=== PATIENT | female | born 1935 | race Caucasian/White ===

== ENCOUNTER 2018-03-28 01:34 | Outpatient (CLI) | payer MEDICARE, OTHER, SELFPAY ==
--- NOTE | 2018-03-28 08:35 | DI.CT_ITS ---
SYMPTOM/DIAGNOSIS: VERTIGO, ? CVA NONCONTRAST HEAD CT: A noncontrast cranial CT was performed. There is mild generalized cerebral atrophy consistent with the patient's age. Mild patchy decreased attenuation of periventricular white matter noted consistent with microvascular ischemic changes. No evidence of acute intracranial hemorrhage, mass effect or midline shift. CONCLUSION: No evidence of acute intracranial process.
== END 2018-03-28 01:54 ==
PROVIDERS: PCP General Practice; Visit Provider General Practice
DX: R42 Dizziness and giddiness (principal); G31.1 Senile degeneration of brain, not elsewhere classified
CPT/HCPCS: 70450

== ENCOUNTER 2018-05-18 12:51 | Emergency (ER) | payer MEDICARE, OTHER, SELFPAY ==
[2018-05-18] VITALS (14 sets, daily range): BP systolic 82–148; BP diastolic 57–96; PULSE 65–92; RESP 11–20; TEMP 36.7–36.8; O2SAT 95–99
--- NOTE | 2018-05-18 12:51 | W.ED.GENAD ---
Discharge Plan Disposition Patient Disposition: HOME Condition: Stable Discharge Details Chief Complaint: Dizzy/Sync Clinical Impression: Syncope Reason For Visit: OSCAR Primary Care Provider: Eduardo Resendiz ED Provider: Dani Campa Home Meds and New Rx's Prescriptions: Continue metoprolol succinate 25 MG tablet extended release 24 hr 25 mg PO HS RF: 0 Discharge Instructions Instructions: Syncope (ED) Additional Instructions: follow up with your primary care provider within a week if you have chest pain, difficulty breathing or severe headaches return to the emergency department Medical Decision Making 82 yo female with hx of afib comes in with syncope. She was at a [employer] store standing for quite some time per pt, felt lightheaded, sat down then lost consciousness and came to in about aminute. Denies any fevers, sob, chills, headache, nv/, chest pain or sob. Suspect orthostasis, ekg shows no acute ischemic findings, will eval for electrolyte abnormalities and monitor. No tachycardia or hypoxia or evidence of dvt so dubt PE pt remains stable, is in sinus rhythm and stable vitals. Will have her d/c'd with zio patch and have her f/u with Dr. Resendiz within a week and return precautions given Differential Diagnosis syncope, orthostasis, anemia Lab Data Lab results reviewed: Yes I reviewed the patient's lab results. ECG Data Attestation: I personally reviewed and interpreted this ECG (s) as follows: Prior ECG tracings: not available for review Interpretation: atrial fibrillatoin rate of 85, normal axis, no acute st t wave changes HPI General Mode of arrival: EMS. Date/Time Provider Initiated Documentation: 05/18/18 13:04. Limitations to Documentation: no limitations. Information obtained by: patient. History of Present Illness 82 year old F presents to the emergency department with the chief complaint of syncope, Patient started experiencing this hour(s) (1) and it has been now resolved. No relieving factors improve symptom(s), No exacerbating factors reported . Patient notes no other symptoms.. Patient did receive the following treatments prior to arrival, none Related Data Home Medications Medication Instructions Recorded Confirmed metoprolol succinate 25 mg PO HS 06/11/16 05/18/18 Allergies Allergy/AdvReac Type Severity Reaction Status Date / Time Penicillins Allergy Severe Anaphylaxsi Verified 05/18/18 13:05 s cephalexin monohydrate Allergy Intermediate Cardiac Verified 05/18/18 13:05 [From Keflex] Dysrythmia Cephalosporins Allergy Intermediate Skin Rash Verified 05/18/18 13:05 codeine Allergy Unknown Verified 05/18/18 13:05 morphine Allergy Unknown Verified 05/18/18 13:05 sulfite Allergy Unknown Verified 05/18/18 13:05 Sulfa (Sulfonamide Allergy unknown Verified 05/18/18 13:05 Antibiotics) erythromycin base AdvReac Mild Nausea Verified 05/18/18 13:05 Review of Systems Review of Systems All systems reviewed & are unremarkable except as noted in HPI and below Constitutional Denies chills, Denies fever(s) and Denies weakness ENT Denies change in voice Cardiovascular Denies chest pain and Denies dyspnea Respiratory Denies dyspnea Gastrointestinal Denies abdominal pain, Denies nausea and Denies vomiting Genitourinary Denies dysuria Musculoskeletal Denies joint swelling Integumentary/Breasts Denies rash Neurologic Denies weakness Psychiatric Denies depression Endocrine Denies cold intolerance and Denies heat intolerance Allergic/Immunologic Denies urticaria PFSH Social History Smoking/Tobacco Use Status: Former Tobacco Use Exam Const General: no acute distress Orientation: alert HENMT Head: normal to inspection Ears: external ears normal General nose exam: external nose normal Mouth: moist mucous membranes Eyes General: appearance normal, both eyes and all related structures Neck Neck: normal visual inspection Resp Effort & Inspection: normal respiratory effort and able to speak in complete sentences Cardio Rate: regular rate Skin General skin exam: no rashes or lesions noted Neuro General: alert and oriented x3 Extrem General: normal to inspection Psych Mental Status: mental status grossly normal
[2018-05-18 13:09] LABS: Abs Immature Grans 0.03 k/cumm (0.0-0.09); Absolute Basophil Count 0.05 k/cumm (0.0-0.2); Absolute Eosinophil Count 0.08 k/cumm (0.0-0.7); Absolute Lymphocyte Count 2.31 k/cumm (1.2-3.4); Absolute Monocyte Count 0.45 k/cumm (0.11-0.7); Absolute Neutrophil Count 5.41 k/cumm (1.2-6.7); Basophils % 0.6; HCT 37.1 % (36.0-46.0); HGB 12.5 g/dL (12.0-15.5); Immature Grans % 0.4; Lymphocytes % 27.7; Mean Corp. HGB Concentration 33.7 g/dL (32.0-36.0); Mean Corpuscular Hemoglobin 30.3 pg (27.0-33.0); Mean Corpuscular Volume 89.8 fL (80-95); Mean Platelet Volume 9.5 fL (8.0-11.0); Monocytes % 5.4; Neutrophils % 64.9; Platelet Count 356 x1000/uL (130-400); RBC 4.13 m/cumm (4.00-5.20); RBC Distribution Width 13.2 % (11.7-14.6); White Blood Cell Count 8.33 k/cumm (4.4-10.8)
[2018-05-18 13:38] LABS: ALT 17 U/L (12-78); AST 20 U/L (15-37); Alkaline Phosphatase 77 U/L (46-116); Anion Gap 10.5 mmol/L (3-11); BUN 19 mg/dL (7-18); Bilirubin, Total 0.3 mg/dL (0.2-1.0); CO2 26.5 mmol/L (21.0-32.0); CREATININE 1.16 mg/dL (0.55-1.02); Calcium 8.3 mg/dL (8.5-10.1); Chloride 103 mmol/L (98-107); Estimated GFR 44.95 (mL/min/1.73m2); Glucose 189 mg/dL (70-100); NT-proBNP 506 pg/mL; Potassium 3.4 mmol/L (3.5-5.1); Sodium 140 mmol/L (136-145); Total Protein 6.7 g/dL (6.4-8.2)
[2018-05-18 13:40] LABS: Troponin I < 0.02 ng/mL (0.00-0.06)
[2018-05-18 13:41] LABS: PTT Activated 19.3 sec (21.0-31.4); Prothrombin Time 9.9 sec (9.3-10.8)
--- NOTE | 2018-06-11 16:03 | ZIOP_ITS ---
DATE OF DICTATION: June 11, 2018 STUDY INDICATION: Syncope. REQUESTING PROVIDER: Eduardo Resendiz M.D. FINDINGS: The patient was monitored for 13 days and 17 hours. The predominant underlying rhythm was sinus rhythm. Average heart rate in sinus rhythm 73 bpm, range 46-151 bpm. There was occasional supraventricular ectopy, 3.5% PAC's. There were 206 episodes of atrial tachycar raza, average heart rate 154 bpm, range 72-292 bpm. The longest episode lasted [address] rage heart rate of 140 bpm. There was rare ventricular ectopy. There was no ventricular tachycardia. There was nocturnal sinus bradycardia. There were no pauses greater than 3 seconds. There was no hi gh-degree heart block. There were 11 patient events. Nine events were associated with PAC's. One event was associated with SVT. One episode was not associated with arrhythmias. FINAL INTERPRETATION: Paroxysmal supraventricular tachycardia, rarely symptomatic.
== END 2018-05-18 14:57 | disposition home or self-care (01) ==
PROVIDERS: Emergency Provider Emergency Medicine; PCP General Practice
DX: R42 Dizziness and giddiness (principal); R55 Syncope and collapse; I48.91 Unspecified atrial fibrillation; I10 Essential (primary) hypertension
CPT/HCPCS: 36415; 80053; 87040; 93005; 93225; 99284; 83880; 84484; 85025; 85610; 85730; 93010; 99285

== ENCOUNTER 2018-06-11 15:42 | Outpatient (CLI) | payer MEDICARE, OTHER, SELFPAY | END 2018-06-11 16:02 | PROVIDERS: PCP Family Medicine; Referring Provider Emergency Medicine; Visit Provider Student in an Organized Health Care Education/Training Program | DX: R55 Syncope and collapse (principal) | CPT/HCPCS: 0298T ==

== ENCOUNTER 2018-07-19 00:32 | Outpatient (CLI) | payer MEDICARE, OTHER, SELFPAY ==
--- NOTE | 2018-07-19 10:12 | DI.US_ITS ---
SYMPTOMS/DIAGNOSIS: PERSISTENT PRESYNCOPAL SYMPTOMS, [id number] AND COLLAPSE CAROTID ULTRASOUND: There is a minimal amount of plaque in the right common carotid bulb. No significant plaque is seen on the left side. The velocity measurements obtained are within the normal range. The vertebral arteries show antegrade flow. IMPRESSION: No significant internal carotid artery stenosis.
--- NOTE | 2018-07-19 10:30 | MERGE_ITS ---
*[facility]* *[facility]* [address] [place] [address] Date of study: 07/19/2018 Transthoracic Echocardiography M-mode, complete 2D, complete spectral Doppler, and color Doppler *STUDY CONCLUSIONS* Summary: 1. Left ventricle: The cavity size was normal. Wall thickness was normal. Systolic function was normal. The estimated ejection fraction was 55-60%. Wall motion was normal; there were no regional wall motion abnormalities. 2. Right ventricle: The cavity size was normal. Systolic function was normal. 3. Aortic valve: There was mild regurgitation. 4. Mitral valve: There was mild to moderate regurgitation. 5. Inferior vena cava: The vessel was patent and normal in size. The respirophasic diameter changes were in the normal range (greater than or equal to 50%), consistent with normal central venous pressure. *PATIENT PRESENTATION* Height: 149.9cm ((59in) ) S/D Pressure: 139 / 77 Weight: 59kg ((129.7lb) ) BSA: 1.58m^2 Test start time: 10:50 AM. Test stop time: 11:50 AM. PERFORMING [facility] MOLD PULLER RT Masha Montez)(CT), [facility] ORDERING Ted Castillo REFERRING Ted Castillo *PROCEDURE DATA* Procedure information: The patient was identified by two identifiers. This study was interpreted by [facility]. Pertinent images and digital data are archived for permanent storage and are available for subsequent review. No prior study was available for comparison. Study status: Routine. Transthoracic echocardiography. M-mode, complete 2D, complete spectral Doppler, and color Doppler. A Transthoracic Echocardiogram was performed. Scanning was performed from the parasternal, apical, subcostal, and suprasternal notch acoustic windows. Images were obtained using an [id number] cardiac ultrasound machine. Image quality was adequate. Study completion: The patient tolerated the procedure well. There were no complications. History: PMH: Syncope and collapse. Pre syncope. *CARDIAC ANATOMY* Left ventricle: The cavity size was normal. Wall thickness was normal. Systolic function was normal. The estimated ejection fraction was 55-60%. Wall motion was normal; there were no regional wall motion abnormalities. Aortic valve: Trileaflet; normal thickness leaflets. Mobility was not restricted. Doppler: Transvalvular velocity was within the normal range. There was no stenosis. There was mild regurgitation. VTI ratio of LVOT to aortic valve: 0.64. Valve area (VTI): 1.6cm^2. Indexed valve area (VTI): 1cm^2/m^2. Peak velocity ratio of LVOT to aortic valve: 0.59. Valve area (Vmax): 1.5cm^2. Indexed valve area (Vmax): 0.9cm^2/m^2. Mean velocity ratio of LVOT to aortic valve: 0.61. Valve area (Vmean): 1.5cm^2. Indexed valve area (Vmean): 1cm^2/m^2. Mean gradient (S): 5.6mm Hg. Peak gradient (S): 10.4mm Hg. Aorta: Aortic root: The aortic root was normal in size. Ascending aorta: The ascending aorta was normal in size. Mitral valve: Mildly thickened leaflets. Mobility was not restricted. Doppler: Transvalvular velocity was within the normal range. There was no evidence for stenosis. There was mild to moderate regurgitation. Valve area by pressure half-time: 3.6cm^2. Indexed valve area by pressure half-time: 2.3cm^2/m^2. Peak gradient (D): 2.9mm Hg. Left atrium: The atrium was normal in size. Right ventricle: The cavity size was normal. Systolic function was normal. Pulmonic valve: Poorly visualized. Doppler: Transvalvular velocity was within the normal range. There was no evidence for stenosis. There was trivial regurgitation. Tricuspid valve: Structurally normal valve. Doppler: Transvalvular velocity was within the normal range. There was no evidence for stenosis. There was mild regurgitation. Pulmonary artery: Poorly visualized. Pulmonary systolic pressure was within the normal range, in the range of 30mm Hg to 35mm Hg. Right atrium: The atrium was normal in size. Pericardium: There was no pericardial effusion. Systemic veins: Inferior vena cava: Well visualized. The vessel was patent and normal in size. The respirophasic diameter changes were in the normal range (greater than or equal to 50%), consistent with normal central venous pressure. Measurements Left ventricle Value Reference LV ID, ED, PLAX 4.2 cm 3.5 - 6.0 LV ID, ES, PLAX 3.0 cm 2.1 - 4.0 LV PW thickness, ED, PLAX 0.8 cm LV end-diastolic volume, 1-p A2C 52 ml LV ejection fraction, 1-p A2C 55 % LV end-diastolic volume, 1-p A4C 41 ml LV ejection fraction, 1-p A4C 62 % LV e', lateral 0.106 m/sec LV E/e', lateral 8 LV e', medial 0.061 m/sec LV E/e', medial 14 LV e', average 0.084 m/sec LV E/e', average 10 Ventricular septum Value Reference IVS thickness, ED, PLAX 0.8 cm LVOT Value Reference LVOT ID, A-P 1.8 cm LVOT area 2.5 cm^2 LVOT peak velocity, S 0.95 m/sec LVOT mean velocity, S 0.7 m/sec LVOT VTI, S 23.1 cm LVOT peak gradient, S 3.6 mm Hg LVOT mean gradient, S 2.1 mm Hg Stroke volume (SV), LVOT DP 57 ml Stroke index (SV/bsa), LVOT DP 36 ml/m^2 Aortic valve Value Reference Aortic valve peak velocity, S 1.6 m/sec Aortic valve mean velocity, S 1.13 m/sec Aortic valve VTI, S 36.0 cm Aortic mean gradient, S 5.6 mm Hg Aortic peak gradient, S 10.4 mm Hg VTI ratio, LVOT/AV 0.64 Aortic valve area, VTI 1.6 cm^2 Velocity ratio, peak, LVOT/AV 0.59 Aortic valve area, peak velocity 1.5 cm^2 Velocity ratio, mean, LVOT/AV 0.61 Aortic valve area, mean velocity 1.5 cm^2 Aortic valve area/bsa, mean velocity 1 cm^2/m^2 Aortic regurg deceleration 261 cm/s^2 Aortic regurg pressure half-time 492 ms Aorta Value Reference Aortic root ID, ED 2.6 cm Ascending aorta ID, A-P, S 2.5 cm Left atrium Value Reference LA ID, A-P, ES 3.1 cm LA ID/bsa, A-P 1.9 cm/m^2 <=2.2 LA area, ES, A4C 16.4 cm^2 8.8 - 23.4 LA volume/bsa, ES, 1-p A4C 30 ml/m^2 LA/aortic root ratio 1.17 Mitral valve Value Reference Mitral E-wave peak velocity 0.85 m/sec Mitral A-wave peak velocity 0.6 m/sec Mitral deceleration time 211 ms 150 - 230 Mitral pressure half-time 61 ms Mitral peak gradient, D 2.9 mm Hg Mitral E/A ratio, peak 1.4 Mitral valve area, PHT, DP 3.6 cm^2 Mitral peak LV-LA gradient, S 100.4 mm Hg Mitral maximal regurg velocity, PISA 5.01 m/sec Mitral regurg VTI, PISA 167.9 cm Pulmonary veins Value Reference Pulmonary vein peak velocity, S 0.48 m/sec Pulmonary vein peak velocity, D 0.55 m/sec Pulmonary vein velocity ratio, peak, 0.87 S/D Pulmonary vein A-wave reversal peak 0.4 m/sec velocity Pulmonary vein A-wave reversal 152 ms duration Tricuspid valve Value Reference Tricuspid regurg peak velocity 2.8 m/sec Tricuspid peak RV-RA gradient 32.2 mm Hg Right atrium Value Reference RA area, ES, A4C 11.3 cm^2 8.3 - 19.5 Legend: (L) and (H) harman values outside specified reference range. I have personally reviewed the images and have reviewed and edited the reported findings. Electronically signed by Mina Londono 07/19/2018 12:27
== END 2018-07-19 00:52 ==
PROVIDERS: PCP Family Medicine; Visit Provider Family Medicine
DX: R55 Syncope and collapse (principal); I35.1 Nonrheumatic aortic (valve) insufficiency; I34.0 Nonrheumatic mitral (valve) insufficiency
CPT/HCPCS: 93306; 93880

== ENCOUNTER 2018-07-31 08:27 | Outpatient (CLI) | payer MEDICARE, OTHER, SELFPAY | END 2018-07-31 08:47 | PROVIDERS: PCP Family Medicine; Visit Provider Family Medicine | DX: I47.1 Supraventricular tachycardia (principal) | CPT/HCPCS: 36415; 84443 ==

== ENCOUNTER 2018-08-03 09:40 | Outpatient (REF) | payer MEDICARE, OTHER, SELFPAY ==
[2018-08-07 17:11] LABS: Metanephrines, U 78 mcg/24 h; Normetanephrine, U 274 mcg/24 h; Total Metanephrines, U 352 mcg/24 h; Urine Volume 1550 mL
== END 2018-08-03 10:00 ==
LOC: LBN 09:40
PROVIDERS: PCP Family Medicine; Visit Provider Family Medicine
DX: I47.1 Supraventricular tachycardia (principal)
CPT/HCPCS: 81050; 83835

== ENCOUNTER → 2018-11-07 13:05 | Outpatient (BNVA) | payer MEDICARE, OTHER, SELFPAY | PROVIDERS: PCP Family Medicine; Visit Provider Student in an Organized Health Care Education/Training Program | DX: R55 Syncope and collapse (principal); I47.1 Supraventricular tachycardia; I10 Essential (primary) hypertension | CPT/HCPCS: 99204; 99215 ==

== ENCOUNTER 2018-11-16 04:15 | Emergency (ER) | payer MEDICARE, OTHER, SELFPAY ==
[2018-11-16 04:17] VITALS: BP 179/82; PULSE 107; RESP 16; TEMP 37.1; O2SAT 98
[2018-11-16 04:24] VITALS: RESP 16
--- NOTE | 2018-11-16 05:00 | W.ED.GENAD ---
Discharge Plan Disposition Patient Disposition: HOME Condition: Good Discharge Details Chief Complaint: Dizzy/Sync Clinical Impression: Vertigo Primary Care Provider: Ted Castillo ED Provider: Yony Jaramillo Home Meds and New Rx's Prescriptions: Continued acetaminophen [Tylenol] 325 mg tablet 325 mg PO QID PRNRF: 0 TUMS PO PRNRF: 0 probiotics PO TID RF: 0 thera tears eye drops OU RF: 0 esthela.stocking,knee,reg,smal misc .ROUTE .MEDSUPPLY Qty: 12 RF: 0 Discharge Instructions Additional Instructions: Your vital signs have normalized here. Your EKG is fine. You have previous history of vertigo with outpatient work-up. Your neurologic exam is normal. We will have you follow-up with your primary care for further management. Return to ED if he develops severe headache, pass out, persistent vertigo with inability to ambulate or vomiting. Referrals: Ted Castillo, [Primary Care Provider] - Medical Decision Making Patient presenting with episodes of vertigo which have resolved. Episodes were short-lived. She has history of same. According to medical records from her primary care's office, she has been dealing with dizziness for months if not years. When I asked what was different about catherine she could not give me a good explanation. She actually reports that her vertigo is usually spinning and not swirling. She had no associated neurologic symptoms. She was able to ambulate. She was a little concerned because of her blood pressure and heart rate but this could have simply been because of anxiety. She does have history of tachycardia and SVT. Her EKG is sinus rhythm with PACs. Monitor for the most part has been sinus rhythm below 100. She has had an echo and carotid ultrasound outpatient. At this point in time, given the short, episodic events with prior history of vertigo and no neurologic findings on exam I am going to refer her back to primary care. They had stopped her metoprolol thinking she was becoming symptomatic with bradycardia. She reports that she had been doing well off this until tonight. We will have her follow-up with primary care next week for further management. Medical Records Medical records reviewed: Yes I reviewed the patient's medical records. ECG Data Attestation: I personally reviewed and interpreted this ECG (s) as follows: Interpretation: Sinus rhythm at 82 with occasional PAC. Normal axis and intervals. No ST changes. HPI General Mode of arrival: EMS. Date/Time Provider Initiated Documentation: 11/16/18 04:39. Limitations to Documentation: no limitations. Information obtained by: patient and old records reviewed. HPI Narrative: Patient presents to ED by ambulance for evaluation of vertigo. Patient reports that she woke up this morning and has had a few episodes of vertigo which she describes as a swirling sensation. She has had maybe 3 of them. They do not last more than a few seconds. She had no associated headache, change in vision, numbness, weakness, chest pain, shortness of breath, vomiting. She reports that she has a history of vertigo. She took her blood pressure and heart rate which were both elevated which concerned her. She then called 911 and was brought in for evaluation. She currently is asymptomatic. Related Data Home Medications Medication Instructions Recorded Confirmed TUMS PO PRN 06/15/18 09/13/18 acetaminophen 325 mg tablet 325 mg PO QID PRN 06/15/18 11/16/18 compression stocking, knee high, #12 each 06/15/18 09/13/18 regular length, small probiotics PO TID 06/15/18 09/13/18 thera tears eye drops OU 06/15/18 09/13/18 Previous Rx's Medication Instructions Recorded compression stocking, knee high, #12 each 06/15/18 regular length, small Allergies Allergy/AdvReac Type Severity Reaction Status Date / Time Penicillins Allergy Severe Anaphylaxsi Verified 11/16/18 04:28 s cephalexin monohydrate Allergy Intermediate Cardiac Verified 11/16/18 04:28 [From Keflex] Dysrythmia Cephalosporins Allergy Intermediate Skin Rash Verified 11/16/18 04:28 codeine Allergy Unknown unknown Verified 11/16/18 04:28 morphine Allergy Unknown unknown Verified 11/16/18 04:28 Sulfa (Sulfonamide Allergy Unknown unknown Verified 11/16/18 04:28 Antibiotics) sulfite Allergy Unknown unknown Verified 11/16/18 04:28 erythromycin base AdvReac Mild Nausea Verified 11/16/18 04:28 metoprolol AdvReac sleepless, Verified 11/16/18 04:28 agitated General Stated Complaint: Dizzy/Sync HANS: 3 Review of Systems Review of Systems As documented in HPI otherwise negative as below. Const: no fever, chills, weakness Resp: no cough, SOB, pleuritic pain CV: no CP, diaphoresis, edema, syncope GI: no abdominal pain, nausea, vomiting, diarrhea Neuro: no headache, numbness, focal weakness, confusion; positive vertigo [facility] Medical History Diverticulitis (Chronic) CAYDEN (generalized anxiety disorder) (Chronic) Hyperlipidemia (Chronic) Hypertension (Chronic) Osteoporosis (Chronic) Kidney stones (Chronic) Diplopia (Acute) Palpitations (Acute) Syncope (Chronic) Surgical History S/P ZEINA-BSO (Acute) Hx of appendectomy (Chronic) Hx of hysterectomy (Chronic) Social History Smoking/Tobacco Use Status: Former Tobacco Use Alcohol Intake: never Drug use: Never Substance use type: does not use Housing: apartment What type of physical activity do you participate in: none Seatbelt use: always 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 Hypertensive and mildly tachycardic on arrival. Const: WDWN elderly female in NAD. HEENT: NC/AT. Normal facial exam. Eyes: Normal conjunctiva and sclera. EOMI without nystagmus. Neck: Supple. Trachea midline. Lungs: Normal respiratory effort. Lungs are clear. Cor: RRR without murmur/gallop. Good radial pulses. Occasional ectopic beat. Neuro: A+O x 3. CN II - XII in tact. Normal strength and sensation. Normal FTN. Normal speech. Ext: No C/C. LE edema chronic. Course Vital Signs Temperature 98.8 F 11/16/18 04:17 Pulse 107 H 11/16/18 04:17 Respiratory Rate 16 11/16/18 04:17 Blood Pressure 179/82 H 11/16/18 04:17 Pulse Oximetry 98 11/16/18 04:17 Temperature 98.8 F 11/16/18 04:17 Temperature Source Temporal Artery Scan 11/16/18 04:17 Pulse 107 H 11/16/18 04:17 Respiratory Rate 16 11/16/18 04:24 Respiratory Effort 11/16/18 04:24 Respiratory Depth Normal 11/16/18 04:24 Blood Pressure 179/82 H 11/16/18 04:17 Pulse Oximetry 98 11/16/18 04:17 Oxygen Delivery Method Room Air 11/16/18 04:17 Oxygen Flow Rate 0 11/16/18 04:17 Pain Level 0 11/16/18 04:17
--- NOTE | 2018-11-16 05:12 | ED.GENADUL_ITS ---
Discharge Plan Disposition Patient Disposition: HOME Condition: Good Discharge Details Chief Complaint: Dizzy/Sync Clinical Impression: Vertigo Primary Care Provider: Ted Castillo ED Provider: Yony Jaramillo Home Meds and New Rx's Prescriptions: Continued acetaminophen [Tylenol] 325 mg tablet 325 mg PO QID PRNRF: 0 TUMS PO PRNRF: 0 probiotics PO TID RF: 0 thera tears eye drops OU RF: 0 esthela.stocking,knee,reg,smal misc .ROUTE .MEDSUPPLY Qty: 12 RF: 0 Discharge Instructions Additional Instructions: Your vital signs have normalized here. Your EKG is fine. You have previous history of vertigo with outpatient work-up. Your neurologic exam is normal. We will have you follow-up with your primary care for further management. Return to ED if he develops severe headache, pass out, persistent vertigo with inability to ambulate or vomiting. Referrals: Ted Castillo, [Primary Care Provider] - Medical Decision Making Patient presenting with episodes of vertigo which have resolved. Episodes were short-lived. She has history of same. According to medical records from her primary care's office, she has been dealing with dizziness for months if not years. When I asked what was different about catherine she could not give me a good explanation. She actually reports that her vertigo is usually spinning and not swirling. She had no associated neurologic symptoms. She was able to ambulate. She was a little concerned because of her blood pressure and heart rate but this could have simply been because of anxiety. She does have history of tachycardia and SVT. Her EKG is sinus rhythm with PACs. Monitor for the most part has been sinus rhythm below 100. She has had an echo and carotid ultrasound outpatient. At this point in time, given the short, episodic events with prior history of vertigo and no neurologic findings on exam I am going to refer her back to primary care. They had stopped her metoprolol thinking she was becoming symptomatic with bradycardia. She reports that she had been doing well off this until tonight. We will have her follow-up with primary care next week for further management. Medical Records Medical records reviewed: Yes I reviewed the patient's medical records. ECG Data Attestation: I personally reviewed and interpreted this ECG (s) as follows: Interpretation: Sinus rhythm at 82 with occasional PAC. Normal axis and intervals. No ST changes. HPI General Mode of arrival: EMS . Date/Time Provider Initiated Documentation: 11/16/18 04:39 . Limitations to Documentation: no limitations . Information obtained by: patient and old records reviewed . HPI Narrative: Patient presents to ED by ambulance for evaluation of vertigo. Patient reports that she woke up this morning and has had a few episodes of vertigo which she describes as a swirling sensation. She has had maybe 3 of them. They do not last more than a few seconds. She had no associated headache, change in vision, numbness, weakness, chest pain, shortness of breath, vomiting. She reports that she has a history of vertigo. She took her blood pressure and heart rate which were both elevated which concerned her. She then called 911 and was brought in for evaluation. She currently is asymptomatic. Related Data Home Medications Medication Instructions Recorded Confirmed TUMS PO PRN 06/15/18 09/13/18 acetaminophen 325 mg tablet 325 mg PO QID PRN 06/15/18 11/16/18 compression stocking, knee high, #12 each 06/15/18 09/13/18 regular length, small probiotics PO TID 06/15/18 09/13/18 thera tears eye drops OU 06/15/18 09/13/18 Previous Rx's Medication Instructions Recorded compression stocking, knee high, #12 each 06/15/18 regular length, small Allergies Allergy/AdvReac Type Severity Reaction Status Date / Time Penicillins Allergy Severe Anaphylaxsi Verified 11/16/18 04:28 s cephalexin monohydrate Allergy Intermediate Cardiac Verified 11/16/18 04:28 [From Keflex] Dysrythmia Cephalosporins Allergy Intermediate Skin Rash Verified 11/16/18 04:28 codeine Allergy Unknown unknown Verified 11/16/18 04:28 morphine Allergy Unknown unknown Verified 11/16/18 04:28 Sulfa (Sulfonamide Allergy Unknown unknown Verified 11/16/18 04:28 Antibiotics) sulfite Allergy Unknown unknown Verified 11/16/18 04:28 erythromycin base AdvReac Mild Nausea Verified 11/16/18 04:28 metoprolol AdvReac sleepless, Verified 11/16/18 04:28 agitated General Stated Complaint: Dizzy/Sync HANS: 3 Review of Systems Review of Systems As documented in HPI otherwise negative as below. Const: no fever, chills, weakness Resp: no cough, SOB, pleuritic pain CV: no CP, diaphoresis, edema, syncope GI: no abdominal pain, nausea, vomiting, diarrhea Neuro: no headache, numbness, focal weakness, confusion; positive vertigo [facility] Medical History Diverticulitis (Chronic) CAYDEN (generalized anxiety disorder) (Chronic) Hyperlipidemia (Chronic) Hypertension (Chronic) Osteoporosis (Chronic) Kidney stones (Chronic) Diplopia (Acute) Palpitations (Acute) Syncope (Chronic) Surgical History S/P ZEINA-BSO (Acute) Hx of appendectomy (Chronic) Hx of hysterectomy (Chronic) Social History Smoking/Tobacco Use Status: Former Tobacco Use Alcohol Intake: never Drug use: Never Substance use type: does not use Housing: apartment What type of physical activity do you participate in: none Seatbelt use: always Drive intox or ride w/intox van driver: No Water heater temp set <120 deg: Yes Working smoke detector in home: Yes Fire extinguisher in home: Yes Carbon monox detector in home: Yes Do you feel safe in your relationship?: Yes Exam Narrative Exam Narrative: Vitals: Afebrile. Hypertensive and mildly tachycardic on arrival. Const: WDWN elderly female in NAD. HEENT: NC/AT. Normal facial exam. Eyes: Normal conjunctiva and sclera. EOMI without nystagmus. Neck: Supple. Trachea midline. Lungs: Normal respiratory effort. Lungs are clear. Cor: RRR without murmur/gallop. Good radial pulses. Occasional ectopic beat. Neuro: A+O x 3. CN II - XII in tact. Normal strength and sensation. Normal FTN. Normal speech. Ext: No C/C. LE edema chronic. Course Vital Signs Temperature 98.8 F 11/16/18 04:17 Pulse 107 H 11/16/18 04:17 Respiratory Rate 16 11/16/18 04:17 Blood Pressure 179/82 H 11/16/18 04:17 Pulse Oximetry 98 11/16/18 04:17 Temperature 98.8 F 11/16/18 04:17 Temperature Source Temporal Artery Scan 11/16/18 04:17 Pulse 107 H 11/16/18 04:17 Respiratory Rate 16 11/16/18 04:24 Respiratory Effort 11/16/18 04:24 Respiratory Depth Normal 11/16/18 04:24 Blood Pressure 179/82 H 11/16/18 04:17 Pulse Oximetry 98 11/16/18 04:17 Oxygen Delivery Method Room Air 11/16/18 04:17 Oxygen Flow Rate 0 11/16/18 04:17 Pain Level 0 11/16/18 04:17
[2018-11-16 05:36] VITALS: BP 143/64; PULSE 78; RESP 15; O2SAT 95
--- NOTE | 2018-11-16 07:59 | CMPROGNOTE_ITS ---
Care Management Progress Note 11/16-Dr. Jaramillo requested assistance with a PCP (Jonathan) f/u in one week for vertigo. Referral faxed to [facility] this am.
== END 2018-11-16 05:28 | disposition home or self-care (01) ==
LOC: ER 05:17
PROVIDERS: Emergency Provider Emergency Medicine; PCP Family Medicine
DX: R42 Dizziness and giddiness (principal); I10 Essential (primary) hypertension
CPT/HCPCS: 93005; 99283; 93010

== ENCOUNTER 2019-02-27 15:50 | Observation (INO) | payer MEDICARE, OTHER, SELFPAY ==
[2019-02-27] VITALS (51 sets, daily range): BP systolic 95–170; BP diastolic 62–130; PULSE 68–122; RESP 11–30; TEMP 36.2–37.2; O2SAT 93–98
[2019-02-27 16:16] LABS: Abs Immature Grans 0.01 k/cumm (0.0-0.09); Absolute Basophil Count 0.05 k/cumm (0.0-0.2); Absolute Eosinophil Count 0.06 k/cumm (0.0-0.7); Absolute Lymphocyte Count 1.76 k/cumm (1.2-3.4); Absolute Monocyte Count 0.53 k/cumm (0.11-0.7); Absolute Neutrophil Count 4.43 k/cumm (1.2-6.7); Basophils % 0.7; Eosinophils % 0.9; HCT 36.3 % (36.0-46.0); HGB 12.4 g/dL (12.0-15.5); Immature Grans % 0.1; Lymphocytes % 25.7; Mean Corp. HGB Concentration 34.2 g/dL (32.0-36.0); Mean Corpuscular Hemoglobin 30.5 pg (27.0-33.0); Mean Corpuscular Volume 89.4 fL (80-95); Mean Platelet Volume 9.7 fL (8.0-11.0); Monocytes % 7.7; Neutrophils % 64.9; Platelet Count 371 x1000/uL (130-400); RBC 4.06 m/cumm (4.00-5.20); RBC Distribution Width 14.1 % (11.7-14.6); White Blood Cell Count 6.84 k/cumm (4.4-10.8)
--- NOTE | 2019-02-27 16:19 | ED.GENADUL_ITS ---
Discharge Plan Disposition Patient Disposition: HOME Condition: Serious Discharge Details Chief Complaint: GI Bleed Clinical Impression: Lower GI bleed Primary Care Provider: Ted Castillo ED Provider: Juwan Rich Home Meds and New Rx's Prescriptions: No Action cranberry extract PO RF: 0 acetaminophen [Tylenol] 325 mg tablet 325 mg PO QID PRNRF: 0 TUMS PO PRNRF: 0 probiotics PO TID RF: 0 thera tears eye drops OU RF: 0 (DME) esthela.stocking,knee,reg,smal misc See Dose Instructions .ROUTE .MEDSUPPLY Qty: 12 RF: 0 Medical Decision Making 16:22 --83-year-old female with history of diverticulitis, presents with bright red blood per rectum that started just prior to arrival. Patient has gross blood on exam. No hemorrhaging. No palpable hemorrhoid. Abdominal exam is benign. Patient is tachycardic. I will send labs including type and screen and CBC. Patient has a history of paroxysmal supraventricular tachycardia. ECG reviewed and interpreted by me: Sinus tachycardia with frequent PACs. 110 bpm, normal axis, nondiagnostic. Plan to discuss with surgery for admission. 16:53 --initial blood work nondiagnostic. Normal hemoglobin. Creatinine 1.26. I spoke with Dr. Beltre discussed ED presentation and course. She feels given patient's comorbidity, patient be better served on hospitalist service. Hospitalist has been paged. 17:35 -- Spoke with Dr. Souza, discussed ED presentation and course - he will admit the patient. HPI General Mode of arrival: EMS . Date/Time Provider Initiated Documentation: 02/27/19 16:02 . Limitations to Documentation: no limitations . Information obtained by: patient and EMS . HPI Narrative: 83-year-old female with history of diverticulitis presents with chief complaint of rectal bleeding. Patient notes bright red blood per rectum just prior to arrival. Patient states large amount. No associated abdominal pain. No modifiers. No nausea or vomiting. Otherwise feeling well recently. Intermittent palpitations. Related Data Home Medications Medication Instructions Recorded Confirmed TUMS PO PRN 06/15/18 02/21/19 acetaminophen 325 mg tablet 325 mg PO QID PRN 06/15/18 02/21/19 esthela.stocking,knee,reg,smal #12 each 06/15/18 02/21/19 probiotics PO TID 06/15/18 02/21/19 thera tears eye drops OU 06/15/18 02/21/19 cranberry extract PO 11/23/18 02/21/19 Previous Rx's Medication Instructions Recorded esthela.stocking,knee,reg,smal #12 each 06/15/18 Allergies Allergy/AdvReac Type Severity Reaction Status Date / Time Penicillins Allergy Severe Anaphylaxsi Verified 02/21/19 08:58 s cephalexin monohydrate Allergy Intermediate Cardiac Verified 02/21/19 08:58 [From Keflex] Dysrythmia Cephalosporins Allergy Intermediate Skin Rash Verified 02/21/19 08:58 codeine Allergy Unknown unknown Verified 02/21/19 08:58 morphine Allergy Unknown unknown Verified 02/21/19 08:58 Sulfa (Sulfonamide Allergy Unknown unknown Verified 02/21/19 08:58 Antibiotics) sulfite Allergy Unknown unknown Verified 02/21/19 08:58 erythromycin base AdvReac Mild Nausea Verified 02/21/19 08:58 metoprolol AdvReac sleepless, Verified 02/21/19 08:58 agitated General Stated Complaint: GI Bleed HANS: 2 Review of Systems Review of Systems All systems reviewed & are unremarkable except as noted in HPI and below Constitutional Denies fever(s) Cardiovascular Denies rapid heart rate and Reports palpitations Gastrointestinal Reports as per HPI and Denies abdominal pain Endocrine Reports palpitations PFSH Medical History Diplopia (Acute) Diverticulitis (Chronic) CAYDEN (generalized anxiety disorder) (Chronic) Hyperlipidemia (Chronic) Hypertension (Chronic) Kidney stones (Chronic) Lower leg edema (Acute) Osteoporosis (Chronic) Palpitations (Acute) Syncope (Chronic) Surgical History Hx of appendectomy (Chronic) Hx of hysterectomy (Chronic) S/P ZEINA-BSO (Acute) Social History Smoking/Tobacco Use Status: Former Tobacco Use Alcohol Intake: never Drug use: Never Substance use type: does not use Adopted: No Foster care: No Housing: apartment What type of physical activity do you participate in: none Seatbelt use: always Drive intox or ride w/intox transportation driver: No Water heater temp set <120 deg: Yes Working smoke detector in home: Yes Fire extinguisher in home: Yes Carbon monox detector in home: Yes Do you feel safe in your relationship?: Yes Exam Const General: cooperative and no acute distress HENMT Mouth: moist mucous membranes Eyes Conjunctivae: normal conjunctivae Sclera: normal sclerae Neck Neck: trachea midline and supple Resp Auscultation: clear to auscultation bilaterally, no rales, no rhonchi and no wheezes Cardio Jugular venous pressure: no JVD Rate: tachycardic Rhythm: abnormal rhythm irregularly irregular GI Palpation: soft, not firm, no guarding, no masses, not rigid and nontender Rectal Exam - female: heme positive stool Rectal exam heme positive - female: gross blood, No hemorrhoids, No tenderness and other (Exam performed with female nurse Heike present as clerk of works) Skin General skin exam: no rashes or lesions noted Neuro General: alert, awake, oriented x3 and tone normal Extrem General: no edema Psych Appearance: grossly normal Mental Status: mental status grossly normal Course Vital Signs Temperature 37.2 C 02/27/19 15:47 Pulse 110 H 02/27/19 15:47 Blood Pressure 168/87 H 02/27/19 15:47 Pulse Oximetry 96 02/27/19 15:47 Temperature 37.2 C 02/27/19 15:47 Temperature Source Skin 02/27/19 15:47 Pulse 110 H 02/27/19 15:47 Respiratory Effort Non-Labored 02/27/19 16:14 Blood Pressure 168/87 H 02/27/19 15:47 Pulse Oximetry 96 02/27/19 15:47 Oxygen Delivery Method Room Air 02/27/19 15:47 Oxygen Flow Rate 0 02/27/19 15:47 Pain Level 0 02/27/19 15:47 Lab/Test Results Lab/Test Results: Laboratory Tests Range/Units 02/27/19 16:05 WBC (4.4-10.8) k/cumm 6.84 RBC (4.00-5.20) m/cumm 4.06 Hgb (12.0-15.5) g/dL 12.4 Hct (36.0-46.0) % 36.3 MCV (80-95) fL 89.4 MCH (27.0-33.0) pg 30.5 MCHC (32.0-36.0) g/dL 34.2 RDW (11.7-14.6) % 14.1 Plt Count (130-400) x1000/uL 371 MPV (8.0-11.0) fL 9.7 Immature Gran % 0.1 Neutrophils % 64.9 Lymphocytes % 25.7 Monocytes % 7.7 Eosinophils % 0.9 Basophils % 0.7 Absolute Neutrophils (1.2-6.7) k/cumm 4.43 Absolute Lymphocytes (1.2-3.4) k/cumm 1.76 Absolute Monocytes (0.11-0.7) k/cumm 0.53 Absolute Eosinophils (0.0-0.7) k/cumm 0.06 Absolute Basophils (0.0-0.2) k/cumm 0.05
[2019-02-27 16:28] LABS: Prothrombin Time 9.9 sec (9.3-11.0)
[2019-02-27 16:33] LABS: ALT 18 U/L (12-78); AST 17 U/L (15-37); Albumin 3.5 g/dL (3.4-5.0); Alkaline Phosphatase 98 U/L (46-116); Anion Gap 10.9 mmol/L (3-11); BUN 22 mg/dL (7-18); Bilirubin, Total 0.3 mg/dL (0.2-1.0); CO2 26.1 mmol/L (21.0-32.0); CREATININE 1.26 mg/dL (0.55-1.02); Calcium 8.5 mg/dL (8.5-10.1); Chloride 106 mmol/L (98-107); Estimated GFR 40.76 (mL/min/1.73m2); Glucose 138 mg/dL (70-100); Potassium 3.8 mmol/L (3.5-5.1); Sodium 143 mmol/L (136-145); Total Protein 7.3 g/dL (6.4-8.2)
[2019-02-27 16:34] LABS: Troponin I < 0.05 ng/mL (0.00-0.06)
[2019-02-27] MEDS: Normal Saline Flush 10 ML SYR IVP ×2 (16:52→21:46)
--- NOTE | 2019-02-27 19:37 | W.PM.HP.N ---
Date of service: 02/27/19 Time of Service: 19:38 Assessment and Plan (1) Lower GI bleeding: Current visit: Yes Status: Acute Monitor her overnight in ICU for any further acute bleeding. Consult w/ surgery to discuss with patient further evaluation of source of her bleeding. Patient has had prior barium enemas which she says were extremely uncomfortable and she has decline screening colonoscopies in the past despite her FH of colon cancer. However, I explained to her that if a source is not evaluated for the cause of her bleeding then we have no way of controlling it nor give her any prognosis of it's likelihood to recur. I doubt that she has acute diverticulitis as there has been no abdominal pain, no leukocytosis and no fever. She have diverticulosis and this still could be a diverticular bleed. For tonight we will monitor her hemogram Q4hr and watch her vital signs w/ telemetry. She was initially very tachycardic after the initial bleeding which occurred about an hour before her arrival to the ER. She has been stable since then. If she has no further bleeding and her hemogram remains stable overnight then an outpatient follow up c-scope can be arranged. I have contacted Dr. Beltre to consult her or her partners to see the patient in the a.m. to discuss w/ the patient further workup. If she rebleeds tonight then a nuclear bleeding scan or CTA of her abdomen and pelvis may help to diagnose the source and she will be given transfusion if needed. She has been typed and screened. She refused any PPI for GI protection of her upper GI tract. I will use TEDS and Pneumatic compression cuffs for DVT prophylaxis. I updated her niece, Fátima Heck in [place], [place] on the patient's condition per the patient's request. 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 She felt the urge to defecate and passed bright red blood per her rectum filling the toilet bowl with blood. She had no nausea or vomiting or abdominal pain. She denies any dizziness or lightheadedness or chest pain or pressure. She says she is never had gastrointestinal bleeding in the past. She does have a remote history for diverticulitis for which she underwent a partial colectomy in November 1985 while living in [place]. She subsequently underwent laparotomy and lysis of adhesions about a year later. Her only other surgeries include total abdominal hysterectomy and unilateral salpingo-oophorectomy in March 1978 and she says she also underwent completion oophorectomy at the time of her laparotomy and lysis of adhesions. She is also had bilateral cataract surgery. Evaluation emergency room included routine labs including a CBC that showed hemoglobin 12.4 g hematocrit 36%. She has no elevation or white cell count was 6800. Platelet count was normal at 371,000. Prothrombin time was normal at 9.9 chemistry profile showed a slightly elevated BUN and creatinine of 22 and 1.26 and a glucose of 138 with normal LFTs and normal troponin level. Upon arrival to the emergency department she was little tachycardic but not hypotensive. Heart rate was between 101 119 sinus rhythm. Her blood pressure on arrival was elevated at 168/87 and transiently dropped down to 95/62 but has since rebounded to 151/69. She has been typed and screened and is being admitted to the intensive care unit for observation and serial monitoring of her hemogram. Dr. Leonie Beltre, general surgeon, was contacted by Dr. Juwan Rich from the emergency room but deferred the patient to medicine service. The presumption was that the patient has a diverticular bleed. However I have since learned that the patient has a strong family history for colon cancer in multiple family members and is never had a colonoscopy and therefore there is some concern that she could have an occult polyp. No diagnostic imaging is performed yet. Review of Systems Constitutional Denies fatigue, Denies fever(s), Denies malaise, Denies poor appetite and Reports weight loss (lost 7 lbs in January d/t gastroenteritis/diarrhea, has since regained 4 lbs) Eyes Reports system reviewed and no additional complaints, except as docu and Reports requires corrective lenses Cardiovascular Reports system reviewed and no additional complaints, except as docu Respiratory Reports system reviewed and no additional complaints, except as docu Gastrointestinal Reports as per HPI, Denies abdominal pain, Denies melena, Denies bloating, Reports hematochezia, Denies nausea, Denies vomiting and Denies hematemesis Genitourinary Reports system reviewed and no additional complaints, except as docu Musculoskeletal Reports system reviewed and no additional complaints, except as docu Integumentary/Breasts Reports system reviewed and no additional complaints, except as docu Neurologic Reports system reviewed and no additional complaints, except as docu Psychiatric Reports anxiety Endocrine Reports system reviewed and no additional complaints, except as docu and Denies fatigue Hematologic/Lymphatic Reports system reviewed and no additional complaints, except as docu Allergic/Immunologic Reports system reviewed and no additional complaints, except as docu PFSH Medical History Diplopia (Acute) Diverticulitis (Chronic) CAYDEN (generalized anxiety disorder) (Chronic) Hyperlipidemia (Chronic) Hypertension (Chronic) Kidney stones (Chronic) Lower leg edema (Acute) Osteoporosis (Chronic) Palpitations (Acute) Syncope (Chronic) Surgical History Hx of appendectomy (Chronic) Hx of hysterectomy (Chronic) S/P ZEINA-BSO (Acute) Family History (Updated 02/27/19 @ 21:48 by Garry Souza) Mother Chronic kidney disease Colon cancer Brother Colon cancer Niece Substance abuse Crohn disease Social History Smoking/Tobacco Use Status: Former Tobacco Use Alcohol Intake: never Drug use: Never Substance use type: does not use Adopted: No Foster care: No Housing: apartment What type of physical activity do you participate in: none Seatbelt use: always Drive intox or ride w/intox caterpillar driver: No Water heater temp set <120 deg: Yes Working smoke detector in home: Yes Fire extinguisher in home: Yes Carbon monox detector in home: Yes Do you feel safe in your relationship?: Yes History History 1 Para 1 Hx # Term Pregnancies 1 Multiple births Hx # Pregnancies Ectopic pregnancies AB induced Hx Number of Living Children AB spontaneous Meds Home Medications Medication Instructions Recorded Confirmed Type TUMS PO PRN 06/15/18 02/21/19 History acetaminophen 325 mg tablet 325 mg PO QID PRN 06/15/18 02/21/19 History esthela.stocking,knee,reg,smal #12 each 06/15/18 02/21/19 Rx probiotics PO TID 06/15/18 02/21/19 History thera tears eye drops OU 06/15/18 02/21/19 History cranberry extract PO 11/23/18 02/21/19 History Allergies Allergy/AdvReac Type Severity Reaction Status Date / Time Penicillins Allergy Severe Anaphylaxsi Verified 02/21/19 08:58 s cephalexin monohydrate Allergy Intermediate Cardiac Verified 02/21/19 08:58 [From Keflex] Dysrythmia Cephalosporins Allergy Intermediate Skin Rash Verified 02/21/19 08:58 codeine Allergy Unknown unknown Verified 02/21/19 08:58 morphine Allergy Unknown unknown Verified 02/21/19 08:58 Sulfa (Sulfonamide Allergy Unknown unknown Verified 02/21/19 08:58 Antibiotics) sulfite Allergy Unknown unknown Verified 02/21/19 08:58 erythromycin base AdvReac Mild Nausea Verified 02/21/19 08:58 metoprolol AdvReac sleepless, Verified 02/21/19 08:58 agitated Exam Const General: cooperative, healthy appearing, comfortable and no acute distress Nutritional Appearance: average body habitus Orientation: alert, awake and oriented x3 HENMT Head: normal to inspection, no palpable skull fracture, normocephalic and atraumatic Ears: hearing grossly impaired (wears hearing aids) bilaterally Mouth: oral mucosae normal, lip normal, tongue normal, oropharynx normal and moist mucous membranes Throat: posterior oropharynx normal and uvula midline Neck Neck: normal visual inspection, full ROM, no lymphadenopathy, trachea midline, supple and no JVD Thyroid: thyroid normal Carotids: normal carotid upstroke Lymphatic: no lymphadenopathy noted Resp Effort & Inspection: normal respiratory effort and able to speak in complete sentences Auscultation: clear to auscultation bilaterally Cardio Jugular venous pressure: no JVD Palpation: normal PMI Rate: regular rate Rhythm: abnormal rhythm with ectopic beats Heart Sounds: S1 normal, S2 normal, normal, physiologic split S2, no gallops and no murmurs Bruits: no abdominal aortic bruits and no carotid bruits Pulses: normal peripheral pulses GI Inspection: scar Palpation: soft, no hepatosplenomegaly, no guarding and nontender Percussion: normal to percussion Auscultation: normal bowel sounds Rectal Exam - female: deferred Other: rectal exam was performed in the ER by Dr. Rich and not repeated upon admission General: bladder normal to palpation and No CVA tenderness Bimanual Exam- Vagina & Uterus: bladder normal to palpation Back/Spine/Pelvis Back: no CVA tenderness Cervical Spine: normal cervical lordosis Thoracic/Lumbar Spine: kyphosis Skin General skin exam: no rashes or lesions noted, elasticity normal and turgor normal Neuro General: alert, awake, oriented x3, moves all extremities and no focal motor deficits Cranial Nerves: PERRL, accommodation normal, EOM intact bilaterally, no nystagmus, facial strength normal, tongue midline, able to rotate head bilaterally and able to elevate shoulders bilaterally Cognition: normal cognition Speech: speech normal Motor: muscle tone normal throughout and no movement abnormalities noted Sensory Exam: no sensory deficits noted Extrem General: normal to inspection, full ROM, normal capillary refill, no joint enlargement, no clubbing, cyanosis or edema, no pedal edema, no calf tenderness and other (bilateral venous varicosities) Psych Appearance: grossly normal Mental Status: mental status grossly normal Speech and Movement: speech and movement normal Mood: congruent mood Affect: normal affect Attitude: cooperative Thought Process: normal Thought Content: normal Insight: insight good Judgment: judgment good Results Labs : 02/27/19 20:25 02/27/19 16:05 Laboratory Results - last 24 hr 02/27/19 02/27/19 02/27/19 16:05 16:05 16:05 WBC 6.84 RBC 4.06 Hgb 12.4 Hct 36.3 MCV 89.4 MCH 30.5 MCHC 34.2 RDW 14.1 Plt Count 371 MPV 9.7 Immature Gran % 0.1 Neutrophils % 64.9 Lymphocytes % 25.7 Monocytes % 7.7 Eosinophils % 0.9 Basophils % 0.7 Absolute Neutrophils 4.43 Absolute Lymphocytes 1.76 Absolute Monocytes 0.53 Absolute Eosinophils 0.06 Absolute Basophils 0.05 PT 9.9 INR 1.0 Sodium 143 Potassium 3.8 Chloride 106 Carbon Dioxide 26.1 Anion Gap 10.9 BUN 22 H Creatinine 1.26 H Estimated GFR/1.73 m2 40.76 Glucose 138 H Calcium 8.5 Magnesium 2.0 Total Bilirubin 0.3 AST 17 ALT 18 Alkaline Phosphatase 98 Troponin I < 0.05 Total Protein 7.3 Albumin 3.5 Patient ABO/Rh Antibody Screen 02/27/19 16:05 WBC RBC Hgb Hct MCV MCH MCHC RDW Plt Count MPV Immature Gran % Neutrophils % Lymphocytes % Monocytes % Eosinophils % Basophils % Absolute Neutrophils Absolute Lymphocytes Absolute Monocytes Absolute Eosinophils Absolute Basophils PT INR Sodium Potassium Chloride Carbon Dioxide Anion Gap BUN Creatinine Estimated GFR/1.73 m2 Glucose Calcium Magnesium Total Bilirubin AST ALT Alkaline Phosphatase Troponin I Total Protein Albumin Patient ABO/Rh A Positive Antibody Screen Negative Last Vital Signs Temp 37.2 C 02/27/19 18:36 Pulse 75 02/27/19 18:36 Resp 20 02/27/19 18:36 BP 124/67 02/27/19 18:36 Pulse Ox 97 02/27/19 18:36
[2019-02-27] MEDS: Normal Saline 1,000 ML 100 ML IV (19:48)
[2019-02-27 20:35] LABS: HCT 35.6 % (36.0-46.0); HGB 12.3 g/dL (12.0-15.5)
[2019-02-28] VITALS (17 sets, daily range): BP systolic 127–166; BP diastolic 57–82; PULSE 61–87; RESP 12–23; TEMP 36.3–37.3; O2SAT 95–98
[2019-02-28 00:57] LABS: HCT 34.4 % (36.0-46.0)
[2019-02-28] MEDS: Normal Saline 1,000 ML 100 ML IV (04:15)
[2019-02-28 05:18] LABS: Abs Immature Grans 0.02 k/cumm (0.0-0.09); Absolute Basophil Count 0.04 k/cumm (0.0-0.2); Absolute Eosinophil Count 0.05 k/cumm (0.0-0.7); Absolute Lymphocyte Count 1.45 k/cumm (1.2-3.4); Absolute Monocyte Count 0.58 k/cumm (0.11-0.7); Absolute Neutrophil Count 4.83 k/cumm (1.2-6.7); Basophils % 0.6; Eosinophils % 0.7; HCT 33.3 % (36.0-46.0); HGB 11.4 g/dL (12.0-15.5); Immature Grans % 0.3; Lymphocytes % 20.8; Mean Corp. HGB Concentration 34.2 g/dL (32.0-36.0); Mean Corpuscular Hemoglobin 30.3 pg (27.0-33.0); Mean Corpuscular Volume 88.6 fL (80-95); Mean Platelet Volume 9.7 fL (8.0-11.0); Monocytes % 8.3; Neutrophils % 69.3; Platelet Count 331 x1000/uL (130-400); RBC 3.76 m/cumm (4.00-5.20); White Blood Cell Count 6.97 k/cumm (4.4-10.8)
[2019-02-28 05:20] LABS: Anion Gap 10.1 mmol/L (3-11); BUN 15 mg/dL (7-18); CO2 23.9 mmol/L (21.0-32.0); CREATININE 0.79 mg/dL (0.55-1.02); Chloride 111 mmol/L (98-107); Glucose 97 mg/dL (70-100); Potassium 3.8 mmol/L (3.5-5.1); Sodium 145 mmol/L (136-145)
[2019-02-28] MEDS: Potassium Chloride 20 MEQ TABCR PO (08:32)
[2019-02-28] MEDS: Normal Saline Flush 10 ML SYR IVP (09:03)
--- NOTE | 2019-02-28 09:08 | PHARADMIT ---
Admission Pharmacy Clinical Review LGI bleed Code Status Full Code Current Weight 57.5 kg Renally Cleared and Narrow Therapeutic Index Meds Crcl ~39.61 mL/min current meds okay QTc Value / Action Taken QTC 468 BP Control, Fever BP 153/70 afebrile Electrolytes reviewed Cl 111 DVT Prophylaxis none- GI bleed Opiate Usage / Scheduled Bowel Regimen Ordered no/no Plt/SCr for Heparin / Enoxaparin plt 331 SCr 0.79 INR for Warfarin n/a H/H stable, WBC/Bands h/h 12.0/34.4 wbc 6.97 Antibiotic appropriateness none Cultures and Sensitivities none Surgical ABX d/c within 24 hr n/a DM control / Insulin Dosing BG 97 none Heart Failure (Check EF%) (LUZ's, B-Block, Diuretics) none IV to PO Switch n/a Home Meds Reviewed yes Home Meds Not Ordered cranberry extract, probiotics, thera tears, tums Comments watch h/h
--- NOTE | 2019-02-28 10:34 | PDOC.CMIN ---
- If Service Date Differs Date of service: 02/28/19 Time of Service: 10:34 Care Management Initial Assess REASON FOR HOSPITALIZATION:: Joselyn was admitted with a LGI bleed. PAST MEDICAL HISTORY/PAST SURGICAL HISTORY:: Medical: anxiety, HTN, vertigo, diverticulitis. Surgical: appendectomy, cholecystectomy, hysterectomy, cataract surgery, L breast fibroadenoma. PREVIOUS FUNCTIONAL STATUS/SOCIAL/FAMILY SUPPORTS:: Lives alone in [facility] at the [facility]. She states she moved there in February 2011 from [place]. 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 She was , but lost her in 2005 and her son in 2010.yrs. She has family in [facility], and thought she would return to [place] to be near family, but states they havent had anything to do with me. She has a sister in [place] who is not well. [place] [facility] with volunteer drivers. Does have a few friends in [place]. CURRENT FUNCTIONAL STATUS:: Joselyn is alert she states she was playing bingo when she went to the bathroom and saw bright red blood on the toilet paper. She states she checked a second time and saw it again was concerned. She states she has a history of Diverticulitis but not sure that she has even had any bleeding r/t diagnosis. Joselyn is engaged in coversation she is happy at the [facility] states she has supports there includind [facility], [employer] and she has a homemaker. ADVANCE DIRECTIVES:: None on file - CM to follow up with primary care and offer to complete if there is not one current. Has patient been provided with information about the portal?: Yes Did the patient sign up for the portal?: No CODE STATUS:: Full Code INSURANCE COVERAGE / FINANCIAL ISSUES:: Medicare, [employer] life insurance CURRENT HOME/COMMUNITY SERVICES/EQUIPMENT:: [facility], subsidized housing at the [facility], choice for care moderate needs and compannion care through [facility]. PRIMARY CARE PHYSICIAN:: POTENTIAL DISCHARGE NEEDS:: Follow up with primary care, and resumption of home services at time of discharge. PATIENT/FAMILY EDUCATION NEEDS:: Discaharge education, limitations and follow up plan of care including ask me three and self management. ANTICIPATED BARRIERS TO DISCHARGE:: None TRANSPORTATION:: Via [facility] to be arranged by CM PLAN:: Joselyn will return home when medically ready. She will follow up with primary care provider as directed. CM to continue to provide support discharged planning.
--- NOTE | 2019-02-28 11:21 | W.PM.PROGNOT ---
Date of Service Date of service: 02/28/19 Time of Service: 11:21 Assessment and Plan (1) Lower GI bleeding: Current visit: Yes Status: Acute Obvious concern regarding malignancy given family history, age, and lack of Colon Cancer screening. Also with possibility for diverticular bleed given history of diverticulitis. However, by this morning the patient's bleeding has completely resolved, and she has tested Heme negative. Question possible Hemorrhoidal disease as etiology. - Currently refusing PPI therapy for Upper GI protection, and refusing further evaluation by colonoscopy or other modalities of testing. - Continue to trend H/H and advance diet if Hemoglobin remains stable and patient lacks further bleeding. Continue to monitor, but transfer to [facility]. (2) DVT prophylaxis: Current visit: Yes Status: Acute SCDs and TEDs - avoid chemical prophylaxis given GI Bleed. Subjective Interval history since last seen: 83-year-old with a personal history of diverticulitis and family history of Colon Cancer, admitted from [facility] Emergency Department on 02/27 with a diagnosis of Lower GIB. Mrs. Connell has a Past Medical History significant for HTN, prior Kidney stones, Osteoporosis, Dyslipidemia, CAYDEN, and remoted Diverticulitis s/p partial colectomy. She does not take medications by choice. The patient presented to the ED after she passed BRBPR while attempting to move her bowels. There had been no associated abdominal discomfort, nausea, vomiting, dizziness, dyspnea, or chest discomfort. Evaluation was significant for a normal Hgb, normal WBC and Platelet count, and a normal INR. Her liver numbers and electrolytes were essentially unremarkable. She was mildly tachycardic but not hypotensive. Of note, the patient does have a family history of Colon Ca in multiple family members, and has refused Colon Cancer screening in the past. She was admitted for further evaluation and treatment. This morning Mrs. Connell feels well. She is tolerating a liquid diet. She had a bowel movement described as brown and Heme negative. No overnight events reported. Remains afebrile. Exam Narrative Exam Narrative: General: Patient appears comfortable, AAOX3, NAD Neck: Supple CV: Regular, nontachycardic, S1S2, No rubs, murmurs, or gallops. Pulmonary: Clear to auscultation bilaterally, no crackles, wheezing, or rhonchi Abdomen: + Bowel Sounds, soft, nontender, nondistended Vascular: No lower extremity edema Psych: Normal mood and affect. Objective Objective Clinical Data: Abnormal lab results 02/27/19 02/27/19 02/28/19 Range/Units 16:05 20:25 00:40 RBC (4.00-5.20) m/cumm Hgb (12.0-15.5) g/dL Hct 35.6 L 34.4 L (36.0-46.0) % Chloride (98-107) mmol/L BUN 22 H (7-18) mg/dL Creatinine 1.26 H (0.55-1.02) mg/dL Glucose 138 H (70-100) mg/dL Calcium (8.5-10.1) mg/dL 02/28/19 02/28/19 Range/Units 04:40 04:40 RBC 3.76 L (4.00-5.20) m/cumm Hgb 11.4 L (12.0-15.5) g/dL Hct 33.3 L (36.0-46.0) % Chloride 111 H (98-107) mmol/L BUN (7-18) mg/dL Creatinine (0.55-1.02) mg/dL Glucose (70-100) mg/dL Calcium 8.0 L (8.5-10.1) mg/dL Vital Signs Temperature 37.3 C 02/28/19 07:37 Temperature Source Temporal Artery Scan 02/28/19 07:37 Pulse 72 02/28/19 10:00 Pulse 71 02/28/19 10:00 Respiratory Rate 16 02/28/19 10:00 Respiratory Effort 02/28/19 07:37 Respiratory Depth Normal 02/28/19 07:37 Respiratory Pattern Normal 02/28/19 07:37 Blood Pressure 145/72 H 02/28/19 10:00 Blood Pressure Mean 90 02/28/19 10:00 Blood Pressure Position Supine 02/28/19 07:37 Pulse Oximetry 97 02/28/19 07:00 Oxygen Delivery Method Room Air 02/28/19 07:37 Oxygen Flow Rate 0 02/28/19 07:37 Pain Level 0 02/28/19 07:37 Intake & Output 02/27/19 02/27/19 02/28/19 11:59 23:59 11:59 Intake Total 496.667 / 496.667 963.333 / 963.333 Output Total 800 / 800 1075 / 1075 Balance -303.333 / -303.333 -111.667 / -111.667 Weight 57.8 kg 57.5 kg Intake: IV 256.667 / 256.667 588.333 / 588.333 Oral 240 / 240 375 / 375 Output: Urine 800 / 800 1075 / 1075 Other: Urine Color Yellow Yellow Urine Appearance Clear Clear Urine Odor None None Comment Pt states she has occasional leaking Stool Occult Blood Negative Stool Size Small Stool Characteristics Soft Formed Emesis Description None Voiding Methods Bedside Commode Bedside Commode Laboratory Results WBC 6.97 k/cumm (4.4-10.8) 02/28/19 04:40 RBC 3.76 m/cumm (4.00-5.20) L 02/28/19 04:40 Hgb 11.4 g/dL (12.0-15.5) L 02/28/19 04:40 Hct 33.3 % (36.0-46.0) L 02/28/19 04:40 MCV 88.6 fL (80-95) 02/28/19 04:40 MCH 30.3 pg (27.0-33.0) 02/28/19 04:40 MCHC 34.2 g/dL (32.0-36.0) 02/28/19 04:40 RDW 14.0 % (11.7-14.6) 02/28/19 04:40 Plt Count 331 x1000/uL (130-400) 02/28/19 04:40 MPV 9.7 fL (8.0-11.0) 02/28/19 04:40 Immature Gran % 0.3 02/28/19 04:40 69.3 02/28/19 04:40 20.8 02/28/19 04:40 8.3 02/28/19 04:40 0.7 02/28/19 04:40 0.6 02/28/19 04:40 Absolute Neutrophils 4.83 k/cumm (1.2-6.7) 02/28/19 04:40 Absolute Lymphocytes 1.45 k/cumm (1.2-3.4) 02/28/19 04:40 Absolute Monocytes 0.58 k/cumm (0.11-0.7) 02/28/19 04:40 Absolute Eosinophils 0.05 k/cumm (0.0-0.7) 02/28/19 04:40 Absolute Basophils 0.04 k/cumm (0.0-0.2) 02/28/19 04:40 PT 9.9 sec (9.3-11.0) 02/27/19 16:05 INR 1.0 (0.9-1.1) 02/27/19 16:05 Sodium 145 mmol/L (136-145) 02/28/19 04:40 Potassium 3.8 mmol/L (3.5-5.1) 02/28/19 04:40 Chloride 111 mmol/L (98-107) H 02/28/19 04:40 Carbon Dioxide 23.9 mmol/L (21.0-32.0) 02/28/19 04:40 10.1 mmol/L (3-11) 02/28/19 04:40 BUN 15 mg/dL (7-18) D 02/28/19 04:40 0.79 mg/dL (0.55-1.02) 02/28/19 04:40 >= 60.00 (mL/min/1.73m2) 02/28/19 04:40 Glucose 97 mg/dL (70-100) 02/28/19 04:40 Calcium 8.0 mg/dL (8.5-10.1) L 02/28/19 04:40 Magnesium 2.0 mg/dL (1.8-2.4) 02/27/19 16:05 0.3 mg/dL (0.2-1.0) 02/27/19 16:05 AST 17 U/L (15-37) 02/27/19 16:05 ALT 18 U/L (12-78) 02/27/19 16:05 98 U/L (46-116) 02/27/19 16:05 < 0.05 ng/mL (0.00-0.06) 02/27/19 16:05 7.3 g/dL (6.4-8.2) 02/27/19 16:05 3.5 g/dL (3.4-5.0) 02/27/19 16:05 Patient ABO/Rh A Positive 02/27/19 16:05 Antibody Screen Negative 02/27/19 16:05
--- NOTE | 2019-02-28 12:37 | NUR.NOTE ---
Nursing Note:1228: pt transferred from ICU room 221 to MS 210. pt a/o x 3. pt up with sbg to bathroom upon arrival to room. pt oriented to call guzmán system and TV remote. continue to monitor.
--- NOTE | 2019-02-28 13:38 | CHAPLAIN ---
Joselyn was in the ICU this morning when I visited her there. She is [id number] in her in speech. 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 Joselyn didn't identify anyone as a support for herself, telling me that she had family in the area, who then moved away. She lives a the [facility] and used to live at the [facility], which she liked better.
[2019-02-28 14:14] LABS: HCT 35.6 % (36.0-46.0); HGB 11.9 g/dL (12.0-15.5)
[2019-03-01 02:43] VITALS: BP 116/62; PULSE 82; RESP 16; TEMP 36.5; O2SAT 97
[2019-03-01 06:46] LABS: Anion Gap 11.4 mmol/L (3-11); BUN 12 mg/dL (7-18); CO2 23.6 mmol/L (21.0-32.0); CREATININE 0.92 mg/dL (0.55-1.02); Calcium 8.4 mg/dL (8.5-10.1); Chloride 109 mmol/L (98-107); Estimated GFR 58.59 (mL/min/1.73m2); Glucose 87 mg/dL (70-100); Magnesium 1.8 mg/dL (1.8-2.4); Potassium 4.3 mmol/L (3.5-5.1); Sodium 144 mmol/L (136-145)
[2019-03-01 06:52] LABS: Abs Immature Grans 0.01 k/cumm (0.0-0.09); Absolute Basophil Count 0.05 k/cumm (0.0-0.2); Absolute Eosinophil Count 0.12 k/cumm (0.0-0.7); Absolute Lymphocyte Count 1.85 k/cumm (1.2-3.4); Absolute Monocyte Count 0.49 k/cumm (0.11-0.7); Absolute Neutrophil Count 3.81 k/cumm (1.2-6.7); Basophils % 0.8; Eosinophils % 1.9; HCT 34.9 % (36.0-46.0); HGB 11.6 g/dL (12.0-15.5); Immature Grans % 0.2; Lymphocytes % 29.2; Mean Corp. HGB Concentration 33.2 g/dL (32.0-36.0); Mean Corpuscular Hemoglobin 29.8 pg (27.0-33.0); Mean Corpuscular Volume 89.7 fL (80-95); Mean Platelet Volume 9.9 fL (8.0-11.0); Monocytes % 7.7; Neutrophils % 60.2; Platelet Count 324 x1000/uL (130-400); RBC 3.89 m/cumm (4.00-5.20); RBC Distribution Width 14.4 % (11.7-14.6); White Blood Cell Count 6.33 k/cumm (4.4-10.8)
[2019-03-01 08:19] VITALS: BP 155/79; PULSE 86; RESP 18; TEMP 37.3; O2SAT 96
--- NOTE | 2019-03-01 08:25 | W.PM.DS.N ---
Date of service: 03/01/19 Time of Service: 08:25 DS: Diagnosis Discharge Diagnosis (1) Lower GI bleeding: Status: Acute Discharge Plan Disposition Patient Disposition: HOME Condition: Stable Discharge Details Chief Complaint: GI Bleed Clinical Impression: Lower GI bleed Reason For Visit: LGI BLEED Admit Date/Time: 02/27/19 17:30 Admit Provider: Garry Souza Attending Provider: Garry Souza Primary Care Provider: Ted Castillo ED Provider: Juwan Rich Hospital Course Hospital Course: Chief Complaint: BRBPR HPI: 83-year-old with a personal history of diverticulitis and family history of Colon Cancer, admitted from [facility] Emergency Department on 02/27 with a diagnosis of Lower GIB. Mrs. Connell has a Past Medical History significant for HTN, prior Kidney stones, Osteoporosis, Dyslipidemia, CAYDEN, and remoted Diverticulitis s/p partial colectomy. She does not take medications by choice. The patient presented to the ED after she passed BRBPR while attempting to move her bowels. There had been no associated abdominal discomfort, nausea, vomiting, dizziness, dyspnea, or chest discomfort. Evaluation was significant for a normal Hgb, normal WBC and Platelet count, and a normal INR. Her liver numbers and electrolytes were essentially unremarkable. She was mildly tachycardic but not hypotensive. Of note, the patient does have a family history of Colon Ca in multiple family members, and has refused Colon Cancer screening in the past. She was admitted for further evaluation and treatment. This morning Mrs. Connell continues to feel well and has no complaints. She is tolerating a normal diet. She had one bowel movement yesterday morning, described as brown and Heme checked negative. Her initial Hgb dropped minimally from 12 to 11.4 with overnight hydration, and has since remained stable at 11.9 and 11.6 as serially checked. No overnight events reported. Remains afebrile. Hospital Course: (1) Lower GI bleeding: Obvious initial concern regarding malignancy given family history, age, and lack of Colon Cancer screening. Also with possibility for diverticular bleed given history of diverticulitis. However, bleeding appears to have been minimal, brisk, and has remained completely resolved with patient's only bowel movement in the hospital described as normal in appearance and tested Heme negative. Question possible Hemorrhoidal disease as etiology. - Currently refusing PPI therapy for Upper GI protection, and refusing further evaluation by colonoscopy or other modalities of testing. - H/H trended and stable. Tolerating diet without any complaints. - Strongly advised patient to follow-up with local surgery for further evaluation and elective colonoscopy. She will consider - appointment will be scheduled prior to discharge. (2) DVT prophylaxis: Maintained on SCDs and TEDs - chemical prophylaxis was avoided given GI Bleed. Home Meds and New Rx's Prescriptions: Continued cranberry extract PO RF: 0 acetaminophen [Tylenol] 325 mg tablet 325 mg PO PRN PRNRF: 0 TUMS 1 tab PRNRF: 0 probiotics PO TID RF: 0 thera tears eye drops 1 drp OU BID-TID RF: 0 (DME) esthela.stocking,knee,reg,smal misc See Dose Instructions .ROUTE .MEDSUPPLY Qty: 12 RF: 0 Discharge Instructions Activity:: No Strenuous Activity Equipment/Supplies:: No Equipment Needed Diet:: As Tolerated Discharge Orders Discharge Orders: Discharge Order (Routine); Ordered 03/01/19 Ordered By: Mane Orantes DS: Data Vitals/I&O Vitals and I&O: Vital Signs Temperature 37.3 C 03/01/19 08:19 Temperature Source Tympanic 03/01/19 08:19 Pulse 86 03/01/19 08:19 Pulse Rhythm Regular 03/01/19 02:32 Pulse 71 02/28/19 10:00 Respiratory Rate 18 03/01/19 08:19 Respiratory Effort Non-Labored 03/01/19 02:32 Respiratory Depth Normal 03/01/19 02:32 Respiratory Pattern Normal 03/01/19 02:32 Blood Pressure 155/79 H 03/01/19 08:19 Blood Pressure Mean 90 02/28/19 10:00 Blood Pressure Position Supine 02/28/19 07:37 Pulse Oximetry 96 03/01/19 08:19 Oxygen Delivery Method Room Air 03/01/19 08:19 Oxygen Flow Rate 0 03/01/19 08:19 Pain Level 0 02/28/19 20:37 Intake & Output 02/28/19 02/28/19 03/01/19 11:59 23:59 11:59 Intake Total 1696.666 / 1936.666 240 / 1936.666 Output Total 1275 / 3575 2300 / 3575 700 / 700 Balance 421.666 / -1638.334 -2060 / -1638.334 -700 / -700 Weight 57.5 kg 56.3 kg Intake: IV 1321.666 / 1321.666 Oral 375 / 615 240 / 615 Output: Urine 1275 / 3575 2300 / 3575 700 / 700 Other: Urine Color Yellow Yellow Yellow Urine Appearance Clear Clear Clear Urine Odor None None Normal Comment Voids in toilet hat. Stool Occult Blood Negative Stool Size Small Stool Characteristics Soft Formed Voiding Methods Bedside Commode Toilet Toilet Labs on day of discharge: Labs from last 24 hours 03/01/19 03/01/19 02/28/19 06:24 06:24 22:00 WBC 6.33 RBC 3.89 L Hgb 11.6 L Cancelled Hct 34.9 L Cancelled MCV 89.7 MCH 29.8 MCHC 33.2 RDW 14.4 Plt Count 324 MPV 9.9 Immature Gran % 0.2 Neutrophils % 60.2 Lymphocytes % 29.2 Monocytes % 7.7 Eosinophils % 1.9 Basophils % 0.8 Absolute Neutrophils 3.81 Absolute Lymphocytes 1.85 Absolute Monocytes 0.49 Absolute Eosinophils 0.12 Absolute Basophils 0.05 Sodium 144 Potassium 4.3 Chloride 109 H Carbon Dioxide 23.6 Anion Gap 11.4 H BUN 12 Creatinine 0.92 Estimated GFR/1.73 m2 58.59 Glucose 87 Calcium 8.4 L Magnesium 1.8 02/28/19 13:58 WBC RBC Hgb 11.9 L Hct 35.6 L MCV MCH MCHC RDW Plt Count MPV Immature Gran % Neutrophils % Lymphocytes % Monocytes % Eosinophils % Basophils % Absolute Neutrophils Absolute Lymphocytes Absolute Monocytes Absolute Eosinophils Absolute Basophils Sodium Potassium Chloride Carbon Dioxide Anion Gap BUN Creatinine Estimated GFR/1.73 m2 Glucose Calcium Magnesium [facility] Medical History Diplopia (Acute) Diverticulitis (Chronic) CAYDEN (generalized anxiety disorder) (Chronic) Hyperlipidemia (Chronic) Hypertension (Chronic) Kidney stones (Chronic) Lower leg edema (Acute) Osteoporosis (Chronic) Palpitations (Acute) Syncope (Chronic) Surgical History Hx of appendectomy (Chronic) Hx of hysterectomy (Chronic) S/P ZEINA-BSO (Acute) Family History Mother Chronic kidney disease Colon cancer Brother Colon cancer Niece Substance abuse Crohn disease Social History Smoking/Tobacco Use Status: Former Tobacco Use Alcohol Intake: never Drug use: Never Substance use type: does not use Adopted: No Foster care: No Housing: apartment What type of physical activity do you participate in: none Seatbelt use: always Drive intox or ride w/intox wheelchair van driver: No Water heater temp set <120 deg: Yes Working smoke detector in home: Yes Fire extinguisher in home: Yes Carbon monox detector in home: Yes Do you feel safe in your relationship?: Yes History History 1 Para 1 Hx # Term Pregnancies 1 Multiple births Hx # Pregnancies Ectopic pregnancies AB induced Hx Number of Living Children AB spontaneous
--- NOTE | 2019-03-01 10:43 | PDOC.CMDIS ---
- If Service Date Differs Date of service: 03/01/19 Time of Service: 10:43 LACE Index Scoring Tool - Questions: Length of Stay (in days): 3 Acuity (Admit via E.D.?): Yes E.D. Visits: 3 - Answers: Total Score: 9 Risk of Readmission: Low Risk Care Management Discharge Reason for Hospitalization: Joselyn was admitted with a LGI bleed. Discharge Plan: Joselyn will be discharged home, to the [facility] in [place]. She will resume her current community services. Follow up with PCP. CM coordinated RCT transportation. Patient/Family Education Needs: Discharge education, limitations, follow up plan of care, including Ask Me Three and self management. Services Needed at Discharge: Home Delivered Meals, Homemaking Services, Transportation
== END 2019-03-01 10:16 | disposition home or self-care (01) ==
LOC: ER 18:07 → ICU 18:25 → MS 03-01 08:31 → ICU 03-06 15:21
PROVIDERS: Admitting Provider Internal Medicine; Emergency Provider Student in an Organized Health Care Education/Training Program; PCP Family Medicine; Visit Provider Internal Medicine
DX: K92.2 Gastrointestinal hemorrhage, unspecified (principal); Z80.0 Family history of malignant neoplasm of digestive organs; Z87.19 Personal history of other diseases of the digestive system; I10 Essential (primary) hypertension; E78.5 Hyperlipidemia, unspecified
CPT/HCPCS: 36415; 80048; 80053; 86850; 86900; 86901; 93005; 99217; 99220; 99232; 99285; 83735; 84484; 85014; 85018; 85025; 85610; 93010; 99284; G0378

== ENCOUNTER → 2019-03-07 09:54 | Outpatient (BNVA) | payer MEDICARE, OTHER, SELFPAY | PROVIDERS: PCP Family Medicine; Referring Provider Family Medicine; Visit Provider Physical Therapy Assistant | DX: K92.2 Gastrointestinal hemorrhage, unspecified (principal); Z80.0 Family history of malignant neoplasm of digestive organs; Z90.49 Acquired absence of other specified parts of digestive tract | CPT/HCPCS: 99214; 99243 ==

== ENCOUNTER 2019-03-15 11:57 | Day surgery (SDC) | payer MEDICARE, OTHER, SELFPAY ==
[2019-03-15 12:18] VITALS: BP 133/72; PULSE 93; RESP 18; TEMP 36.4; O2SAT 95
--- NOTE | 2019-03-15 12:39 | W.PM.DSUDISC ---
Discharge Plan Disposition Patient Disposition: HOME Condition: Good Discharge Details Reason For Visit: GI BLEED,RECTAL BLEEDING Attending Provider: Sharmila Branch Primary Care Provider: Ted Castillo Home Meds and New Rx's Prescriptions: Continued cranberry extract PO RF: 0 TUMS 1 tab PRNRF: 0 probiotics PO TID RF: 0 thera tears eye drops 1 drp OU BID-TID RF: 0 (DME) esthela.stocking,knee,reg,smal misc See Dose Instructions .ROUTE .MEDSUPPLY Qty: 12 RF: 0 acetaminophen [Tylenol] 325 mg tablet 325 mg PO PRN RF: 0 Discontinued polyethylene glycol 3350 17 gram/dose powder 238 g PO ONCE Qty: 238 RF: 0 bisacodyl [Dulcolax (bisacodyl)] 5 mg tablet,delayed release (DR/EC) 5 mg PO ONCE Qty: 4 RF: 0 Discharge Instructions Additional Instructions: Findings: Your colonoscopy showed diverticulosis. Follow up: No further colon screening is needed. Please call if you develop: fevers >101.5 Nausea or Vomiting Abdominal pain that is not transient DAY SURGERY UNIT POST COLONOSCOPY INSTRUCTIONS 1. Because there will be medication in your system for the next 24 hours, you may feel a little sleepy. Your coordination will be affected. Therefore: a. Do not drive or operate dangerous equipment for 24 hours. b. Do not drink alcohol beverages for 24 hours (not even beer). c. Plan to go home and rest for the day. 2. Generally there are no restrictions on your activity after a day or so has gone by, but you may feel a bit fatigued for a few days. 3 After you arrive home you may have a light meal and return to a normal diet as you can tolerate it without feeling sick to your stomach. 4. After surgery, you may feel pain or discomfort. This should be only transient, but if it persists please contact your doctor. 5. If there are any questions regarding the findings of your procedure, please feel free to contact your doctor. 6. If you are unable to contact your doctor with a problem, contact the hospital at [phone]. 7. Continue all your regular medications unless directed otherwise. I understand the above instructions and have no questions. Signature of Patient or Responsible Adult Escort Date/Time Name of Responsible Adult Escort Signature of Nurse Date/Time Activity:: Activity as Tolerated Diet:: As Tolerated Discharge Orders Discharge Orders: Discharge Order (Routine); Ordered 03/15/19 Ordered By: Sharmila Branch DS: Diagnosis Discharge Diagnosis (1) Diverticulosis: Status: Acute (2) Hx of colonoscopy:
[2019-03-15] MEDS: Lactated Ringers 1,000 ML 80 ML IV (12:51)
[2019-03-15 13:55] VITALS: BP 126/62; PULSE 82; RESP 17; TEMP 36.6; O2SAT 97
--- NOTE | 2019-03-18 11:01 | COLE_ITS ---
DATE OF PROCEDURE: March 15, 2019 PREOPERATIVE DIAGNOSIS: 1. Family history of colon cancer. 2. Rectal bleeding. POSTOPERATIVE DIAGNOSIS: Diverticulosis. PROCEDURE: Colonoscopy. SURGEON: Sharmila Branch M.D. ANESTHESIA: General. INDICATIONS: This is an 83-year-old woman who was admitted to the hospital recently after presenting with rectal bleeding. This occurred x1. She has not had any significant symptoms since. The patie nt had a colectomy in 1985 related to diverticular disease. She has not had a prior colonoscopy. Sh e reports her mother and brother had colon cancer. PROCEDURE: She was placed in the left Davis position and Propofol was titrated to sedation. Digital rectal examination revealed some solid stool. The scope was inserted and I was able to navigate thro ugh the rectal area, again with some solid stool present, however her prep more proximally was actual ly quite good. The scope was advanced to the cecum without difficulty. The ileocecal valve and appe ndiceal orifice were clearly identified. The scope was slowly withdrawn with no abnormalities seen w ithin the ascending, transverse or descending colon. The anastomosis in the sigmoid region was not o bviously visualized. The patient did have residual sigmoid diverticulosis present. The rectum was n ormal, although I would estimate that about 20% was obscured. There was no mass evident, although a small polyp could be missed. It is presumed that her bleeding was either diverticular or related to internal hemorrhoids. She tolerated the procedure well and was stable to recovery. She will not nee d a follow-up screening unless new symptoms arise. cc: Ted Castillo D.O.
== END 2019-03-15 14:33 | disposition home or self-care (01) ==
PROVIDERS: PCP Family Medicine; Visit Provider Surgery
PROC: 0DJD8ZZ Inspection of Lower Intestinal Tract, Via Natural or Artificial Opening Endoscopic (ICD-10-PCS; CPT 45378; principal; 2019-03-15 14:00)
DX: K62.5 Hemorrhage of anus and rectum (principal); K57.30 Diverticulosis of large intestine without perforation or abscess without bleeding; Z90.49 Acquired absence of other specified parts of digestive tract; Z80.0 Family history of malignant neoplasm of digestive organs; I10 Essential (primary) hypertension
CPT/HCPCS: 45378

== ENCOUNTER → 2019-11-28 09:42 | Outpatient (BNVA) | payer MEDICARE, OTHER, SELFPAY | PROVIDERS: PCP Family Medicine; Referring Provider Family Medicine; Visit Provider Psychiatry & Neurology Neurology | DX: G43.109 Migraine with aura, not intractable, without status migrainosus (principal); H81.10 Benign paroxysmal vertigo, unspecified ear; I10 Essential (primary) hypertension | CPT/HCPCS: 99204; 99215 ==

== ENCOUNTER 2020-01-07 00:19 | Outpatient (REF) | payer MEDICARE, OTHER, SELFPAY | END 2020-01-07 00:39 | LOC: LBN 00:19 | PROVIDERS: PCP Family Medicine; Visit Provider Family Medicine | DX: N39.0 Urinary tract infection, site not specified (principal) | CPT/HCPCS: 87086 ==

== ENCOUNTER 2020-05-23 08:00 | Emergency (ER) | payer MEDICARE, OTHER, SELFPAY ==
[2020-05-23] VITALS (16 sets, daily range): BP systolic 140–167; BP diastolic 65–91; PULSE 73–114; RESP 11–25; TEMP 36.7; O2SAT 94–98
--- NOTE | 2020-05-23 07:45 | RT.EKG_ITS ---
APPROVED REPORT Exam: Resting ECG Patient Location: E HR:98 bpm ECG Measurements Heart Rate 98 AXIS MO 160 P 39 QRSd 78 QRS -25 QT 346 T 33 QTc 444 Conclusion Sinus rhythm...normal P axis, V-rate 60- 99 Physician: Rate 98, intervals normal, sinus rhythm, no significant ST elevation or depression, no natasha dence of STEMI.
--- NOTE | 2020-05-23 08:13 | W.ED.GENAD ---
Discharge Plan Disposition Patient Disposition: HOME Condition: Good Discharge Details Clinical Impression: Acute dehydration, Peripheral positional vertigo Primary Care Provider: Ted Castillo ED Provider: Des Roy Home Meds and New Rx's Prescriptions: Continued cranberry extract PO RF: 0 TUMS 1 tab PRNRF: 0 probiotics PO TID RF: 0 thera tears eye drops 1 drp OU BID-TID RF: 0 (DME) esthela.stocking,knee,reg,smal misc See Dose Instructions .ROUTE .MEDSUPPLY Qty: 12 RF: 0 acetaminophen [Tylenol] 325 mg tablet 325 mg PO PRN RF: 0 magnesium oxide 400 mg (241.3 mg magnesium) tablet 400 mg PO DAILY Qty: 60 RF: 0 Discharge Instructions Instructions: Dehydration (ED), Benign Paroxysmal Positional Vertigo (ED) Additional Instructions: At this time I feel your symptoms are consistent with mild dehydration and peripheral vertigo. Please drink plenty of fluids, make sure to keep your electrolytes well-balanced by avoiding just water, and instead feel free to drink juice or Gatorade or Powerade. Be cautious when you get up and move. Get up slowly ambulate throughout your house cautiously. If you notice any worsening of your symptoms, or any new symptoms such as vomiting, diarrhea, fever, chills, shortness of breath, chest pain, numbness, weakness, or fainting , please return immediately to the emergency department for reevaluation. Please follow up with your primary care provider as soon as possible for reassessment and reevaluation. As always, it was a pleasure participating in your medical care today. Referrals: Ted Castillo DO [Primary Care Provider] - Medical Decision Making 84-year-old female with a past medical history of hypertension, hyperlipidemia, generalized anxiety disorder, previous vertigo, presents today for evaluation of dizziness. Patient states that she had vertigo greater than 5 years ago, and then this morning when she woke up and looked to the left and upwards she suddenly became extremely dizzy and had a room spinning sensation. She states that it felt identical to her previous episode of vertigo. She denies any numbness tingling or weakness. She did try a home Eboni maneuver and states that this helped a little bit. She denies any vomiting but does admit to nausea. She denies any fever chills or headache. Of note she does state that her friend whom she has been spending much time with lately was recently exposed to coronavirus. The patient did have an outpatient test performed yesterday for Covid, the results are not yet back. Patient denies any other complaints at this time. She does admit to feeling very thirsty and not having drank anything this morning which is atypical for her. No other modifying factors. Physical exam demonstrates positive head impulse test to the left, no significant nystagmus. Normal neurologic exam otherwise. Mucous membranes notably dry. Suspect that the patient is suffering from mild peripheral vertigo especially clinically the historical component of her symptoms. We will gently rehydrate, get a CT scan of the head out of an abundance of precaution secondary to her age. Monitor closely and reassess 8:44 AM Patient is refusing meclizine at this time as well as Zofran. She states that she feels that she does not need it as her symptoms are not that bad right now. 9:[address] scan has returned negative per virtual radiology, laboratory work-up is notably unremarkable, heart rate stable, blood pressure stable, no white count, no signs of anemia or electrolyte abnormality or other significant deficit. proBNP is normal suggesting no signs of significant fluid overload, troponin normal. On reassessment after IV fluids the patient is feeling much better, I got her up personally and ambulated her around the room. She did well, showed no signs of ataxia or wide-based gait. She feels well, and states that the dizziness is notably improved. She still notably refuses meclizine. I do not think Valium is indicated or necessary at this time. I did contact the patient's niece, Fátima Heck and also discussed the case with her. Both parties are reassured. At this time with unremarkable work-up, no signs or symptoms concerning for a central event, and signs and symptoms instead being clinically consistent with peripheral vertigo I feel that the patient is stable for discharge home. Patient feels well and agrees. I have extensively reviewed the treatment plan and discharge instructions with the patient. I have addressed all patient concerns at this time. The patient was made aware of what symptoms to monitor for that would warrant a return to the emergency department. Discussed the plan with the patient, they demonstrate verbal understanding and agreement with our assessment and plan at this time. EKG 8: 09 Rate 98, intervals normal, sinus rhythm, no significant ST elevation or depression, no evidence of STEMI.. FINDINGS: Brain: There is mild diffuse heterogeneity of the white matter attenuation, consistent with chronic white matter ischemic changes. There is mild generalized brain parenchymal volume loss. Basal ganglia cacifications. There is no evidence of acute hemorrhage within the brain parenchyma or the subarachnoid space. There is no evidence of an acute ischemic event. There is no evidence of uncal or subfalcine herniation. Cerebral ventricles: There is no significant ventricular effacement or midline shift. There is no evidence of ventricular dilation. Bones/joints: Unremarkable. No acute fracture. Paranasal sinuses: Visualized sinuses are unremarkable. No fluid levels. Mastoid air cells: Visualized mastoid air cells are well aerated. Vasculature: Atherosclerotic calcifications of the intracranial arteries. Soft tissues: There is no evidence of a focal mass. IMPRESSION: No acute intracranial findings. Thank you for allowing us to participate in the care of your patient. Dictated and Authenticated by: Umberto Leung MD 05/23/2020 9:23 AM Eastern Time ([place] & [place]) HPI General Date/Time Provider Initiated Documentation: 05/23/20 08:10. HPI Narrative: 84-year-old female with a past medical history of hypertension, hyperlipidemia, generalized anxiety disorder, previous vertigo, presents today for evaluation of dizziness. Patient states that she had vertigo greater than 5 years ago, and then this morning when she woke up and looked to the left and upwards she suddenly became extremely dizzy and had a room spinning sensation. She states that it felt identical to her previous episode of vertigo. She denies any numbness tingling or weakness. She did try a home Eboni maneuver and states that this helped a little bit. She denies any vomiting but does admit to nausea. She denies any fever chills or headache. Of note she does state that her friend whom she has been spending much time with lately was recently exposed to coronavirus. The patient did have an outpatient test performed yesterday for Covid, the results are not yet back. Patient denies any other complaints at this time. She does admit to feeling very thirsty and not having drank anything this morning which is atypical for her. No other modifying factors. Related Data Home Medications Medication Instructions Recorded Confirmed TUMS 1 tab PRN 06/15/18 01/07/20 esthela.stocking,knee,reg,smal #12 each 06/15/18 01/07/20 probiotics PO TID 06/15/18 01/07/20 thera tears eye drops 1 drp OU BID-TID 06/15/18 05/23/20 cranberry extract PO 11/23/18 01/07/20 acetaminophen 325 mg tablet 325 mg PO PRN 03/07/19 05/23/20 magnesium oxide 400 mg (241.3 mg 400 mg PO DAILY #60 tab 12/06/19 05/23/20 magnesium) tablet Previous Rx's Medication Instructions Recorded esthela.stocking,knee,reg,smal #12 each 06/15/18 magnesium oxide 400 mg (241.3 mg 400 mg PO DAILY #60 tab 12/06/19 magnesium) tablet Allergies Allergy/AdvReac Type Severity Reaction Status Date / Time Penicillins Allergy Severe Anaphylaxsi Verified 05/23/20 08:16 s cephalexin monohydrate Allergy Intermediate Cardiac Verified 05/23/20 08:16 [From Keflex] Dysrythmia Cephalosporins Allergy Intermediate Skin Rash Verified 05/23/20 08:16 codeine Allergy Unknown unknown Verified 05/23/20 08:16 morphine Allergy Unknown unknown Verified 05/23/20 08:16 Sulfa (Sulfonamide Allergy Unknown unknown Verified 05/23/20 08:16 Antibiotics) sulfite Allergy Unknown unknown Verified 05/23/20 08:16 meclizine Allergy Verified 05/23/20 08:16 atenolol AdvReac Intermediate severe Verified 05/23/20 08:16 dizziness erythromycin base AdvReac Mild Nausea Verified 05/23/20 08:16 metoprolol AdvReac sleepless, Verified 05/23/20 08:16 agitated General HANS: 2 Review of Systems All systems reviewed & are unremarkable except as noted in HPI and below PFSH Medical History (Updated 05/23/20 @ 09:52 by Des Roy DO) Benign positional vertigo Diplopia Diverticulitis CAYDEN (generalized anxiety disorder) Hyperlipidemia Hypertension Kidney stones Lower leg edema Osteoporosis Palpitations Syncope Surgical History History of laparotomy 11/1987 - per pt twisted gut and scar tissue. History of lumpectomy of left breast benign fibroadenoma 05/1962 Hx of appendectomy Hx of cataract surgery Hx of colectomy 22 cm removed. r/t to diverticulitis. Hx of colonoscopy 03/15/19 Hx of hysterectomy S/P ZEINA-BSO Family History Mother , from CKD Chronic kidney disease Colon cancer Brother Colon cancer from colon cancer Niece Substance abuse Crohn disease 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 or ride w/intox lifter driver: No Water heater temp set <120 deg: Yes Working smoke detector in home: Yes Fire extinguisher in home: Yes Carbon monox detector in home: Yes Do you feel safe at home: Yes Do you feel safe in your relationship?: Yes Victim of physical abuse: No Victim of emotional abuse: No Victim of sexual abuse: No Would you like helpful sources: No History History 1 Para 1 Hx # Term Pregnancies 1 Multiple births Hx # Pregnancies Ectopic pregnancies AB induced Hx Number of Living Children AB spontaneous Exam Narrative Exam Narrative: 1.Const: Well-nourished, Well-developed, appearing stated age 2.Eyes: PERRL, no conjunctival injection, and symmetrical lids. No significant horizontal vertical or rotatory nystagmus 3.ENT: Atraumatic external nose and ears. Moist MM. Neck: Symmetric, trachea midline, No thyromegaly. 4.CVS: +S1/S2, No murmurs or gallops. Peripheral pulses 2+ and equal in all extremities. Brisk capillary refill in all extremities. 5.RESP: Unlabored respiratory effort. Clear to auscultation bilaterally. No wheezes rales or rhonchi 6.GI: Soft, Nontender/Nondistended, No hepatosplenomegaly. No guarding or rebound. 7.MSK: Normocephalic/Atraumatic, Extremities w/o deformity or ttp No cyanosis or clubbing, Normal movement of all extremities 8.Skin: Warm, Dry. No rashes or lesions. 9.Neuro: school photographs detailer II-XII grossly intact. Sensation grossly intact, no focal neurologic deficits. All 6 cardinal planes of vision are fully intact. No evidence of rotatory or vertical nystagmus. The patient demonstrated a normal [id number], good dexterity. There was no evidence of dysdiadochokinesia. Patient was able to ambulate without difficulty. There was no wide-based gait. Mtri-tf-[id number] testing was normal. Sensation was intact bilaterally as well as muscle strength bilaterally for all extremities. Patient was able to verbalize butter cup with no slurring, or miss pronunciation. Cerebellar function testing is normal. The patient demonstrates a normal hints exam with no findings concerning for a central event. No vertical nystagmus. The head impulse test is negative for any significant central abnormality but is positive for rapid movement to the left and certainly does exacerbate her symptoms. Test of skew demonstrates mild horizontal correction but no vertical correction. No suggestion of a central cerebellar event clinically at this time. 10.Psych: (AAO) x3. Appropriate mood and affect
[2020-05-23 08:41] LABS: Abs Immature Grans 0.01 10^3/uL (0.0-0.06); Absolute Basophil Count 0.05 10^3/uL (0.0-0.2); Absolute Eosinophil Count 0.03 10^3/uL (0.0-0.7); Absolute Neutrophil Count 3.69 10^3/uL (1.2-6.7); Eosinophils % 0.6; HCT 36.5 % (36.0-46.0); HGB 12.5 g/dL (11.2-15.7); Immature Grans % 0.2; Lymphocytes % 16.4; MCH 30.4 pg (27.0-33.0); MCHC 34.2 % (32.0-36.0); MCV 88.8 fL (80-95); MPV 9.4 fL (8.0-11.0); Monocytes % 6.1; Neutrophils % 75.7; Nucleated RBC 0 %; Platelet Count 291 10^3/uL (130-400); RBC 4.11 10^6/uL (3.93-5.22); RDW 13.9 % (11.7-14.6); RDW-SD 44.9 fL; WBC 4.88 10^3/uL (4.4-10.8)
[2020-05-23] MEDS: Normal Saline 1,000 ML 1000 ML IV (08:41)
[2020-05-23 09:00] LABS: ALT 14 U/L (14-59); AST 22 U/L (15-37); Albumin 3.4 g/dL (3.4-5.0); Alkaline Phosphatase 74 U/L (46-116); BUN 15 mg/dL (7-18); Bilirubin, Total 0.5 mg/dL (0.2-1.0); CO2 25.8 mmol/L (21.0-32.0); CREATININE 1.09 mg/dL (0.55-1.02); Calcium 8.3 mg/dL (8.5-10.1); Estimated GFR 48.06 (mL/min/1.73m2); Glucose 105 mg/dL (74-106); NT-proBNP 416 pg/mL (<300); Total Protein 6.9 g/dL (6.4-8.2)
--- NOTE | 2020-05-23 09:02 | DI.CT_ITS ---
EXAM: CT HEAD WO CLINICAL HISTORY: dizzy, vertiginous. TECHNIQUE: Imaging Protocol: Axial computed tomography images with coronal and sagittal reformatted images were created and reviewed COMPARISON: CT CT HEAD WO from 03/28/2018 FINDINGS: There is moderate generalized cerebral atrophy. There are subtle periventricular areas of decreased attenuation in white matter consistent with microvascular ischemic changes. No evidence of acute intracranial hemorrhage, mass effect, or midline shift. The orbital structures are unremarkable. The temporal bone structures appear intact. Calvarium: Normal. Visualized Paranasal sinuses/Mastoids: Clear. IMPRESSION: No evidence of acute intracranial process. RADIATION DOSE DELIVERED: 683.59mGy.cm Total DLP 683.59mGy.cm Total DLP DATA REPOSITORY: All CT scans at this facility are submitted to the National Radiology Data Registry (NRDR) Dose Index Registry (DIR) with the [employer] ([employer]). RADIATION OPTIMIZATION: All CT scans at this facility use at least one of these dose optimization te chniques: automated exposure control; mA and/or kV adjustment per patient size (includes targeted exa ms where dose is matched to clinical indication); or iterative reconstruction.
[2020-05-23 09:08] LABS: Troponin I < 0.05 ng/mL (<0.06)
[2020-05-23 09:10] LABS: Anion Gap 9.2 mmol/L (3-11); Chloride 107 mmol/L (98-107); Potassium 3.7 mmol/L (3.5-5.1); Sodium 142 mmol/L (136-145)
--- NOTE | 2020-05-23 09:23 | DI.VRAD_ITS ---
PROCEDURE INFORMATION: Exam: CT Head Without Contrast Exam date and time: 05/23/2020 9:02 AM Age: 84 years old Clinical indication: Dizziness; Patient HX: Dizzy, vertiginous TECHNIQUE: Imaging protocol: Computed tomography of the head without contrast. Radiation optimization: All CT scans at this facility use at least one of these dose optimization techniques: automated exposure control; mA and/or kV adjustment per patient size (includes targeted exams where dose is matched to clinical indication); or iterative reconstruction. COMPARISON: CT HEAD WO 03/28/2018 8:16 AM FINDINGS: Brain: There is mild diffuse heterogeneity of the white matter attenuation, consistent with chronic white matter ischemic changes. There is mild generalized brain parenchymal volume loss. Basal ganglia cacifications. There is no evidence of acute hemorrhage within the brain parenchyma or the subarachnoid space. There is no evidence of an acute ischemic event. There is no evidence of uncal or subfalcine herniation. Cerebral ventricles: There is no significant ventricular effacement or midline shift. There is no evidence of ventricular dilation. Bones/joints: Unremarkable. No acute fracture. Paranasal sinuses: Visualized sinuses are unremarkable. No fluid levels. Mastoid air cells: Visualized mastoid air cells are well aerated. Vasculature: Atherosclerotic calcifications of the intracranial arteries. Soft tissues: There is no evidence of a focal mass. IMPRESSION: No acute intracranial findings. Dictated and Authenticated by: Umberto Leung MD. Ordering:ALONSO Nunes MD
== END 2020-05-23 11:39 | disposition home or self-care (01) ==
LOC: ER 10:00
PROVIDERS: Emergency Provider Student in an Organized Health Care Education/Training Program; PCP Family Medicine
DX: E86.0 Dehydration (principal); H81.12 Benign paroxysmal vertigo, left ear; R11.0 Nausea; I10 Essential (primary) hypertension
CPT/HCPCS: 36415; 80053; 93005; 96360; 99285; 70450; 83880; 84484; 85025; 93010

== ENCOUNTER 2020-07-12 19:20 | Emergency (ER) | payer MEDICARE, OTHER, SELFPAY ==
[2020-07-12] VITALS (32 sets, daily range): BP systolic 123–176; BP diastolic 62–103; PULSE 80–138; RESP 13–32; TEMP 37.1; O2SAT 95–98
--- NOTE | 2020-07-12 19:15 | RT.EKG_ITS ---
APPROVED REPORT Exam: Resting ECG Patient Location: E HR:105 bpm ECG Measurements Heart Rate 105 AXIS RI 181 P 58 QRSd 77 QRS -24 QT 342 T 4 QTc 451 Conclusion Sinus tachycardia...rate> 99 Multiform ventricular premature complexes...short R-R, variable morphology Inferior infarct, old...Q >35mS, II III aVF No STEMI, Sinus with atypical intermittant PVC's associated with delay, but inconsistant with type 2 and type 3 block
--- NOTE | 2020-07-12 19:28 | ED.GENADUL_ITS ---
Discharge Plan Disposition Patient Disposition: HOME Condition: Improving Discharge Details Clinical Impression: Benign positional vertigo Primary Care Provider: Ted Castillo ED Provider: Samra Rowley Home Meds and New Rx's Prescriptions: No Action cranberry extract 1 tab PO DAILY RF: 0 TUMS 1 tab PO BID RF: 0 thera tears eye drops 1 drp OU BID-TID RF: 0 (DME) esthela.stocking,knee,reg,smal misc See Dose Instructions .ROUTE .MEDSUPPLY Qty: 12 RF: 0 acetaminophen [Tylenol] 325 mg tablet 325 mg PO PRN RF: 0 probiotics 1 tab PO TID PRNRF: 0 ondansetron HCl [Zofran] 4 mg tablet 4 mg PO Q8H PRN (Reason: nausea and vomiting) Qty: 30 RF: 0 Discharge Instructions Instructions: Benign Paroxysmal Positional Vertigo (ED) Additional Instructions: Drink 6 to 8 glasses of water to stay well-hydrated Take medications as previously prescribed Change positions slowly to avoid lightheadedness Call primary care provider first thing Monday for follow-up appointment Return sooner for new or worsening symptoms Referrals: Ted Castillo DO [Primary Care Provider] - Medical Decision Making IV established patient given 2 L of normal saline. Routine labs unremarkable. EKG shows sinus rhythm with ectopy She declines meclizine stating she is allergic. After IV hydration she has ambulated to the bathroom with steady gait and improved symptoms. She is stabilized for discharge to home Medical Records Medical records reviewed: Yes I reviewed the patient's medical records. Lab Data Lab results reviewed: Yes I reviewed the patient's lab results. Lab results narrative: Laboratory Tests Range/Units 07/12/20 07/12/20 07/12/20 19:38 19:38 21:37 WBC (4.4-10.8) 10^3/uL 7.76 RBC (3.93-5.22) 10^6/uL 4.42 Hgb (11.2-15.7) g/dL 13.1 Hct (36.0-46.0) % 39.7 MCV (80-95) fL 89.8 MCH (27.0-33.0) pg 29.6 MCHC (32.0-36.0) % 33.0 RDW (11.7-14.6) % 13.2 Plt Count (130-400) 10^3/uL 332 MPV (8.0-11.0) fL 9.4 Immature Gran % 0.3 Neutrophils % 69.5 Lymphocytes % 24.7 Monocytes % 4.1 Eosinophils % 0.5 Basophils % 0.9 Nucleated RBC % % 0 Absolute Neutrophils (1.2-6.7) 10^3/uL 5.39 Absolute Lymphocytes (1.2-3.4) 10^3/uL 1.92 Absolute Monocytes (0.1-0.8) 10^3/uL 0.32 Absolute Eosinophils (0.0-0.7) 10^3/uL 0.04 Absolute Basophils (0.0-0.2) 10^3/uL 0.07 Sodium (136-145) mmol/L 137 Potassium (3.5-5.1) mmol/L 3.8 Chloride (98-107) mmol/L 104 Carbon Dioxide (21.0-32.0) mmol/L 24.2 Anion Gap (3-11) mmol/L 8.8 BUN (7-18) mg/dL 25 H Creatinine (0.55-1.02) mg/dL 1.30 H Estimated GFR/1.73 m2 (mL/min/1.73m2) 39.21 Glucose (74-106) mg/dL 184 H Calcium (8.5-10.1) mg/dL 8.8 Magnesium (1.8-2.4) mg/dL 1.9 Total Bilirubin (0.2-1.0) mg/dL 0.5 AST (15-37) U/L 23 ALT (14-59) U/L 16 Alkaline Phosphatase (46-116) U/L 77 Troponin I (<0.06) ng/mL < 0.05 < 0.05 Total Protein (6.4-8.2) g/dL 7.3 Albumin (3.4-5.0) g/dL 3.5 Labs: Patient Name: MARCIANO VELAZQUEZ #: [id number]: ER Ordering Provider: : PRE ER Primary Care Provider: Ted Castillo of Exam: 07/12/20Sex: F : 8Age: 84 Exam(s) PROCEDURE INFORMATION: Exam: XR Chest, 2 Views Exam date and time: 07/12/2020 7:27 PM Age: 84 years old Clinical indication: Other: Syncope TECHNIQUE: Imaging protocol: XR of the chest Views: 2 views. COMPARISON: CR CHEST 2 VIEWS PA,LAT 06/11/2016 7:35 PM FINDINGS: Lungs: Minimal left lower lobe atelectasis. Pleural space: Unremarkable. No pleural effusion. No pneumothorax. Heart/Mediastinum: There is a large hiatal hernia. Mild cardiomegaly. Bones/joints: Unremarkable. IMPRESSION: Large hiatal hernia. No evidence for acute abnormality. Dictated and Authenticated by: Jasmin Murillo MD. Ordering:ANY Cabrales MD HPI General Mode of arrival: EMS . Date/Time Provider Initiated Documentation: 07/12/20 19:25 . Limitations to Documentation: no limitations . Information obtained by: patient . HPI Narrative: Patient presents with complaints of vertigo which she states she has a history of. She has not fallen she has no chest pain shortness of breath she has had no fevers or recent illness she states that her p.o. intake has been poor and she feels dehydrated Related Data Home Medications Medication Instructions Recorded Confirmed TUMS 1 tab PO BID 06/15/18 07/12/20 esthela.stocking,knee,reg,smal #12 each 06/15/18 06/01/20 thera tears eye drops 1 drp OU BID-TID 06/15/18 07/12/20 cranberry extract 1 tab PO DAILY 11/23/18 07/12/20 acetaminophen 325 mg tablet 325 mg PO PRN 03/07/19 07/12/20 ondansetron HCl 4 mg tablet 4 mg PO Q8H PRN #30 tab 05/28/20 07/12/20 probiotics 1 tab PO TID PRN 06/01/20 07/12/20 Previous Rx's Medication Instructions Recorded esthela.stocking,knee,reg,smal #12 each 06/15/18 ondansetron HCl 4 mg tablet 4 mg PO Q8H PRN #30 tab 05/28/20 Allergies Allergy/AdvReac Type Severity Reaction Status Date / Time cephalexin monohydrate Allergy Severe Cardiac Verified 07/12/20 19:31 [From Keflex] Dysrythmia Cephalosporins Allergy Severe Skin Rash Verified 01/03/21 19:31 Penicillins Allergy Severe Anaphylaxsi Verified 07/12/20 19:31 s meclizine Allergy Intermediate hyperactivi Verified 07/12/20 19:31 ty codeine Allergy Unknown unknown Verified 07/12/20 19:31 morphine Allergy Unknown unknown Verified 07/12/20 19:31 Sulfa (Sulfonamide Allergy Unknown unknown Verified 07/12/20 19:31 Antibiotics) sulfite Allergy Unknown unknown Verified 07/12/20 19:31 atenolol AdvReac Intermediate severe Verified 07/12/20 19:31 dizziness erythromycin base AdvReac Mild Nausea Verified 07/12/20 19:31 metoprolol AdvReac sleepless, Verified 07/12/20 19:31 agitated General HANS: 2 Review of Systems All systems reviewed & are unremarkable except as noted in HPI and below Constitutional Constitutional: Denies fever(s) ENT Ears, Nose, Mouth, and Throat: Reports vertigo and Reports dizziness Cardiovascular Cardiovascular: Denies syncope and Denies dyspnea Respiratory Respiratory: Denies cough and Denies dyspnea Gastrointestinal Gastrointestinal: Denies diarrhea, Denies nausea and Denies vomiting Neurologic Neurologic: Reports vertigo, Reports dizziness and Denies syncope [facility] Medical History (Updated 07/12/20 @ 22:47 by Samra Rowley NP) Benign positional vertigo Compound nevus R clavicle Diplopia Diverticulitis CAYDEN (generalized anxiety disorder) Hyperlipidemia Hypertension Kidney stones Lower leg edema Osteoporosis Palpitations Syncope Surgical History History of laparotomy 11/1987 - per pt twisted gut and scar tissue. History of lumpectomy of left breast benign fibroadenoma 05/1962 Hx of appendectomy Hx of cataract surgery Hx of colectomy 22 cm removed. r/t to diverticulitis. Hx of colonoscopy 03/15/19 Hx of hysterectomy S/P ZEINA-BSO Family History Mother , from CKD Chronic kidney disease Colon cancer Brother Colon cancer from colon cancer Niece Substance abuse Crohn disease 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 Water heater temp set <120 deg: Yes Working smoke detector in home: Yes Fire extinguisher in home: Yes Carbon monox detector in home: Yes Do you feel safe at home: Yes Do you feel safe in your relationship?: Yes Victim of physical abuse: No Victim of emotional abuse: No Victim of sexual abuse: No Would you like helpful sources: No History History 1 Para 1 Hx # Term Pregnancies 1 Multiple births Hx # Pregnancies Ectopic pregnancies AB induced Hx Number of Living Children AB spontaneous Exam Const General: cooperative, comfortable and no acute distress Nutritional Appearance: average body habitus Orientation: alert, awake and oriented x3 HENPR Head: normal to inspection, normocephalic and atraumatic Chest Chest: normal inspection of the chest Resp Effort & Inspection: normal respiratory effort Auscultation: clear to auscultation bilaterally Cardio Rate: regular rate Rhythm: regular rhythm GI Inspection: normal to inspection Palpation: soft Auscultation: normal bowel sounds Skin General skin exam: no rashes or lesions noted Neuro General: patient alert, patient awake, patient oriented x3 and no focal motor deficits
[2020-07-12 19:44] LABS: Abs Immature Grans 0.02 10^3/uL (0.0-0.06); Absolute Basophil Count 0.07 10^3/uL (0.0-0.2); Absolute Eosinophil Count 0.04 10^3/uL (0.0-0.7); Absolute Lymphocyte Count 1.92 10^3/uL (1.2-3.4); Absolute Monocyte Count 0.32 10^3/uL (0.1-0.8); Absolute Neutrophil Count 5.39 10^3/uL (1.2-6.7); Basophils % 0.9; Eosinophils % 0.5; HCT 39.7 % (36.0-46.0); HGB 13.1 g/dL (11.2-15.7); Immature Grans % 0.3; Lymphocytes % 24.7; MCH 29.6 pg (27.0-33.0); MCV 89.8 fL (80-95); MPV 9.4 fL (8.0-11.0); Monocytes % 4.1; Neutrophils % 69.5; Nucleated RBC 0 %; Platelet Count 332 10^3/uL (130-400); RBC 4.42 10^6/uL (3.93-5.22); RDW 13.2 % (11.7-14.6); RDW-SD 43.7 fL; WBC 7.76 10^3/uL (4.4-10.8)
[2020-07-12] MEDS: Normal Saline 1,000 ML 150 ML IV (19:44)
--- NOTE | 2020-07-12 19:58 | DI.RAD_ITS ---
EXAM: XR CHEST 2V PA LATERAL CLINICAL HISTORY: syncope. TECHNIQUE: 2D digital imaging was performed. COMPARISON: CR CHEST 2 VIEWS PA,LAT from 06/11/2016 FINDINGS: Heart size is normal. Prominent hiatal hernia retrocardiac regions now noted, not previously evident . Chronic increased markings in the left lower lobe. There is atelectasis in the lower right lung-righ t middle lobe, previously present but slightly increased. IMPRESSION: Large hiatal hernia which was not evident in 2016. Right middle lobe platelike atelectasis. Chronic increased markings in the posterior basal segment o f the left lower lobe. There are no pleural effusions. DATA REPOSITORY: RADIATION DOSE DELIVERED:
[2020-07-12 20:00] LABS: ALT 16 U/L (14-59); AST 23 U/L (15-37); Albumin 3.5 g/dL (3.4-5.0); Alkaline Phosphatase 77 U/L (46-116); Anion Gap 8.8 mmol/L (3-11); BUN 25 mg/dL (7-18); Bilirubin, Total 0.5 mg/dL (0.2-1.0); CO2 24.2 mmol/L (21.0-32.0); Calcium 8.8 mg/dL (8.5-10.1); Chloride 104 mmol/L (98-107); Estimated GFR 39.21 (mL/min/1.73m2); Glucose 184 mg/dL (74-106); Magnesium 1.9 mg/dL (1.8-2.4); Potassium 3.8 mmol/L (3.5-5.1); Sodium 137 mmol/L (136-145); Total Protein 7.3 g/dL (6.4-8.2)
[2020-07-12 20:04] LABS: Troponin I < 0.05 ng/mL (<0.06)
--- NOTE | 2020-07-12 20:06 | DI.VRAD_ITS ---
PROCEDURE INFORMATION: Exam: XR Chest, 2 Views Exam date and time: 07/12/2020 7:27 PM Age: 84 years old Clinical indication: Other: Syncope TECHNIQUE: Imaging protocol: XR of the chest Views: 2 views. COMPARISON: CR CHEST 2 VIEWS PA,LAT 06/11/2016 7:35 PM FINDINGS: Lungs: Minimal left lower lobe atelectasis. Pleural space: Unremarkable. No pleural effusion. No pneumothorax. Heart/Mediastinum: There is a large hiatal hernia. Mild cardiomegaly. Bones/joints: Unremarkable. IMPRESSION: Large hiatal hernia. No evidence for acute abnormality. Dictated and Authenticated by: Jasmin Murillo MD. Ordering:ANY Cabrales MD
--- NOTE | 2020-07-12 21:30 | RT.EKG_ITS ---
APPROVED REPORT Exam: Resting ECG Patient Location: E HR:103 bpm ECG Measurements Heart Rate 103 AXIS VA 171 P 32 QRSd 79 QRS -11 QT 369 T 23 QTc 485 Conclusion Sinus tachycardia...rate> 99 Supraventricular bigeminy...bigeminy string>4 w/ SV complexes I have reviewed and interpreted ECG and agree with software generated interpretation.
[2020-07-12] MEDS: Normal Saline 1,000 ML 1000 ML IV (21:42)
[2020-07-12 22:15] LABS: Troponin I < 0.05 ng/mL (<0.06)
== END 2020-07-12 23:30 | disposition home or self-care (01) ==
PROVIDERS: Emergency Provider Nurse Practitioner Acute Care; PCP Family Medicine
DX: H81.10 Benign paroxysmal vertigo, unspecified ear (principal); I10 Essential (primary) hypertension
CPT/HCPCS: 36415; 80053; 93005; 96360; 96361; 99285; 71046; 83735; 84484; 85025; 93010; 99284

== ENCOUNTER 2020-07-17 19:27 | Outpatient (REF) | payer MEDICARE, OTHER, SELFPAY | END 2020-07-17 19:47 | LOC: LBN 19:27 | PROVIDERS: PCP Family Medicine; Visit Provider Nurse Practitioner Adult Health | DX: R32 Unspecified urinary incontinence (principal) | CPT/HCPCS: 87086 ==

== ENCOUNTER 2020-07-29 12:09 | Outpatient (REF) | payer MEDICARE, OTHER, SELFPAY | END 2020-07-29 12:29 | LOC: LBO 12:09 | PROVIDERS: PCP Family Medicine; Visit Provider Nurse Practitioner Adult Health | DX: R31.29 Other microscopic hematuria (principal) | CPT/HCPCS: 87086 ==

== ENCOUNTER 2020-09-14 09:21 | Emergency (ER) | payer MEDICARE, OTHER, SELFPAY ==
[2020-09-14] VITALS (12 sets, daily range): BP systolic 144–165; BP diastolic 72–93; PULSE 70–101; RESP 13–22; TEMP 36.8–37.1; O2SAT 96–97
--- NOTE | 2020-09-14 09:47 | W.ED.GENAD ---
Discharge Plan Disposition Patient Disposition: HOME Condition: Stable Discharge Details Clinical Impression: Acute anterior epistaxis Primary Care Provider: Ted Castillo ED Provider: Tricia Manzanares Home Meds and New Rx's Prescriptions: Continued cranberry extract 1 tab PO DAILY RF: 0 TUMS 1 tab PO BID PRNRF: 0 thera tears eye drops 1 drp OU BID-TID RF: 0 (DME) esthela.stocking,knee,reg,smal misc See Dose Instructions .ROUTE .MEDSUPPLY Qty: 12 RF: 0 acetaminophen [Tylenol] 325 mg tablet 325 mg PO PRN RF: 0 probiotics 1 tab PO TID PRNRF: 0 ondansetron HCl [Zofran] 4 mg tablet 4 mg PO Q8H PRN (Reason: nausea and vomiting) Qty: 30 RF: 0 Discharge Instructions Instructions: Nosebleed (ED) Additional Instructions: Use lubrication to moisten inside of your nose up to 3 times daily as needed discussed. Apply direct pressure with clamp or your hand for approximately 15 minutes to bleeding recurs, leaning forward trying not to swallow any of the blood. If bleeding does not stop after 15 minutes of direct pressure or any worsening clot or concerns please return to the ER immediately. Follow up with primary care provider in 3-5 days. Return to ED sooner if any worsening or concerns. Increase oral fluids. You may try a humidifier at bedside, close and constant if needed. Referrals: Ted Castillo DO [Primary Care Provider] - Discharge Data Discharge Date/Time-TO BE ENTERED AT DEPARTURE: 09/14/20 11:00 Medical Decision Making 84-year-old female presents to the ED via EMS with chief complaint of epistaxis which has resolved upon arrival. Patient reports that this morning around 7:30 AM she woke up that her nose is running and noticed bloody nose. She placed a Kleenex up there with her nose and the bleeding resolved. She denies any headache, any blood running down the back of her throat, any other complaints. She does have a past medical history of hypertension, hyperlipidemia, diverticulitis, benign positional vertigo, ocular migraine. She does not currently take any medications for her blood pressure. Upon initial exam she does have a small scrape noted to the right inner nare mucosa, no active bleeding at this time. Patient is alert and oriented x4. At this time we will observe patient for recurrent bleeding for approximately 30 to 45 minutes, she was given a glass of water, discussed home care including heating lubrication on her nose and possibly humidifier at bedside cool and constant to aid in moisture. 1018: Patient reevaluation, no recurrent bleeding noted, patient was given a breakfast tray with toast and peanut butter as requested. She is alert and oriented x4 no additional complaints or complications noted. I did give patient some lubrication and a nasal clamp discussed home care including applying direct pressure for approximately 15 minutes and to return to the ED if bleeding does not stop after 15 minutes. Patient verbalized understanding. HPI General Mode of arrival: EMS. Date/Time Provider Initiated Documentation: 09/14/20 09:32. Limitations to Documentation: no limitations. Information obtained by: patient. HPI Narrative: 84-year-old female presents to the ED via EMS with chief complaint of epistaxis which has resolved upon arrival. Patient reports that this morning around 7:30 AM she woke up that her nose is running and noticed bloody nose. She placed a Kleenex up there with her nose and the bleeding resolved. She denies any headache, any blood running down the back of her throat, any other complaints. She does have a past medical history of hypertension, hyperlipidemia, diverticulitis, benign positional vertigo, ocular migraine. She does not currently take any medications for her blood pressure. Upon initial exam she does have a small scrape noted to the right inner nare mucosa, no active bleeding at this time. Patient is alert and oriented x4. Related Data Home Medications Medication Instructions Recorded Confirmed TUMS 1 tab PO BID PRN 06/15/18 09/14/20 esthela.stocking,knee,reg,smal #12 each 06/15/18 06/01/20 thera tears eye drops 1 drp OU BID-TID 06/15/18 09/14/20 cranberry extract 1 tab PO DAILY 11/23/18 09/14/20 acetaminophen 325 mg tablet 325 mg PO PRN 03/07/19 09/14/20 ondansetron HCl 4 mg tablet 4 mg PO Q8H PRN #30 tab 05/28/20 09/14/20 probiotics 1 tab PO TID PRN 06/01/20 09/14/20 Previous Rx's Medication Instructions Recorded esthela.stocking,knee,reg,smal #12 each 06/15/18 ondansetron HCl 4 mg tablet 4 mg PO Q8H PRN #30 tab 05/28/20 Allergies Allergy/AdvReac Type Severity Reaction Status Date / Time cephalexin monohydrate Allergy Severe Cardiac Verified 09/14/20 09:27 [From Keflex] Dysrythmia Cephalosporins Allergy Severe Skin Rash Verified 09/14/20 09:27 Penicillins Allergy Severe Anaphylaxsi Verified 09/14/20 09:27 s meclizine Allergy Intermediate hyperactivi Verified 09/14/20 09:27 ty codeine Allergy Unknown unknown Verified 09/14/20 09:27 morphine Allergy Unknown unknown Verified 09/14/20 09:27 Sulfa (Sulfonamide Allergy Unknown unknown Verified 09/14/20 09:27 Antibiotics) sulfite Allergy Unknown unknown Verified 09/14/20 09:27 atenolol AdvReac Intermediate severe Verified 09/14/20 09:27 dizziness erythromycin base AdvReac Mild Nausea Verified 09/14/20 09:27 metoprolol AdvReac sleepless, Verified 09/14/20 09:27 agitated General Stated Complaint: Epistaxis HANS: 4 Review of Systems Narrative: Constitutional: Negative for weight loss, alert and oriented, well groomed, normal body habitus, appears comfortable. HEENT: Denies trauma, headaches, blurry vision, sore throat, trouble swallowing. Reports right-sided epistaxis which has resolved upon arrival. Chest: Denies chest pain, palpitations, irregular rhythm, hypertension. Respiratory: Denies Shortness of breath, cough, hemoptysis. GI: Denies abdominal pain, nausea, vomiting, diarrhea, constipation. : Denies dysuria, hematuria, flank pain, rectal bleeding. Neuro: Denies blurry vision, weakness, syncope, headache or facial numbness. Does have a history of benign positional vertigo she denies any dizziness or vertigo symptoms at this time. Hematologic: Denies easy bruising, intolerance to heat or cold, hair loss. [facility] Medical History Benign positional vertigo Compound nevus R clavicle Diplopia Diverticulitis CAYDEN (generalized anxiety disorder) Hyperlipidemia Hypertension Kidney stones Lower leg edema Osteoporosis Palpitations Syncope Surgical History History of laparotomy 11/1987 - per pt twisted gut and scar tissue. History of lumpectomy of left breast benign fibroadenoma 05/1962 Hx of appendectomy Hx of cataract surgery Hx of colectomy 22 cm removed. r/t to diverticulitis. Hx of colonoscopy 03/15/19 Hx of hysterectomy S/P ZEINA-BSO Family History Mother , from CKD Chronic kidney disease Colon cancer Brother Colon cancer from colon cancer Niece Substance abuse Crohn disease 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 or ride w/intox 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 Appears stated age. Normal body habitus. Head: Normocephalic, no trauma. Eyes: Pupils PERRLA, Red reflex noted, EOM's intact. Eyelids symmetrical without lesions, discharge, or swelling. ENT: Bilateral TM's WNL, External ear normal to inspection, no mastoid TTP, swelling, or erythema, does have a small scratch noted to the right inner nare mucosa with some dried blood noted surrounding, no active bleeding noted at this time. Normal dentition, Posterior pharynx WNL, no exudate. No posterior pharynx bleeding from epistaxis noted at this time. Chest: RRR, Normal S1, S2, distal pulses intact. Resp: Lungs clear to auscultation bilaterally, no wheezes, rales, or rhonchi. Musculoskeletal: Normal gait, 5/5 strength to all four extremities. Skin: No suspicious rashes or lesions. Capillary refill less than 2 sec. Neurologic: Cranial nerves II-XII intact. Alert and oriented x 3. DTR's intact. Hematologic/Lymphatic: No ecchymosis, no lymphadenopathy. Course Vital Signs Vital signs: Vital Signs Temperature 36.8 C 09/14/20 09:21 Pulse 101 H 09/14/20 09:21 Respiratory Rate 20 09/14/20 09:21 Blood Pressure 144/93 H 09/14/20 09:21 Pulse Oximetry 97 09/14/20 09:21 Temperature 36.8 C 09/14/20 09:21 Temperature Source Skin 09/14/20 09:21 Pulse 101 H 09/14/20 09:21 Respiratory Rate 20 09/14/20 09:21 Respiratory Effort Non-Labored 09/14/20 09:29 Blood Pressure 144/93 H 09/14/20 09:21 Blood Pressure Position Sitting 09/14/20 09:21 Pulse Oximetry 97 09/14/20 09:21 Oxygen Delivery Method Room Air 09/14/20 09:21 Oxygen Flow Rate 0 09/14/20 09:21 Pain Level 0 09/14/20 09:21
--- NOTE | 2020-09-14 10:01 | NUR.NOTE ---
pt provided with breakfast tray Nursing Note:
== END 2020-09-14 11:00 | disposition home or self-care (01) ==
LOC: ER 10:52
PROVIDERS: Emergency Provider Registered Nurse Emergency; PCP Family Medicine
DX: R04.0 Epistaxis (principal)
CPT/HCPCS: 99284; 99282

== ENCOUNTER 2020-09-16 15:35 | Outpatient (REF) | payer MEDICARE, OTHER, SELFPAY | END 2020-09-16 15:36 | disposition home or self-care (01) | LOC: LBN 15:35 | PROVIDERS: PCP Family Medicine; Visit Provider Nurse Practitioner Adult Health | DX: R82.90 Unspecified abnormal findings in urine (principal); Z87.440 Personal history of urinary (tract) infections | CPT/HCPCS: 87086 ==

== ENCOUNTER 2020-09-22 20:06 | Emergency (ER) | payer MEDICARE, OTHER, SELFPAY ==
--- NOTE | 2020-09-22 20:00 | DI.RAD_ITS ---
EXAM: XR CHEST 2V PA LATERAL CLINICAL HISTORY: palpitations. TECHNIQUE: 2D digital imaging was performed. COMPARISON: CR,XR XR CHEST 2V PA LATERAL from 07/12/2020 FINDINGS: Heart size is unchanged. A large retrocardiac hiatal hernia is again noted. There is some atelectasis and infiltrate in the left lower lobe adjacent to the hiatal hernia, this i n the posterior basal segment of the left lower lobe. Also platelike atelectasis in the mid lower ri ght lung field.. Blunting of left costophrenic angle is again noted. This has more the appearance o f scarring than actual pleural effusion. IMPRESSION: Findings as above but with minimal change when compared to 07/12/2020. DATA REPOSITORY: RADIATION DOSE DELIVERED:
[2020-09-22 20:05] VITALS: BP 134/86; PULSE 126; RESP 23; TEMP 36.6; O2SAT 97
--- NOTE | 2020-09-22 20:13 | W.ED.GENAD ---
Discharge Plan Disposition Patient Disposition: HOME Condition: Stable Discharge Details Clinical Impression: Atrial fibrillation Primary Care Provider: Caroline Yoon ED Provider: Jenelle Murphy Home Meds and New Rx's Prescriptions: New Eliquis 2.5 mg tablet 2.5 mg PO BID Qty: 14 RF: 0 diltiazem HCl 60 mg capsule,extended release 12 hr 60 mg PO BID Qty: 14 RF: 0 Continued cranberry extract 1 tab PO DAILY RF: 0 TUMS 1 tab PO BID PRNRF: 0 thera tears eye drops 1 drp OU BID-TID RF: 0 (DME) esthela.stocking,knee,reg,smal misc See Dose Instructions .ROUTE .MEDSUPPLY Qty: 12 RF: 0 acetaminophen [Tylenol] 325 mg tablet 325 mg PO PRN RF: 0 probiotics 1 tab PO TID PRNRF: 0 ondansetron HCl [Zofran] 4 mg tablet 4 mg PO Q8H PRN (Reason: nausea and vomiting) Qty: 30 RF: 0 Discharge Instructions Instructions: A-fib (Atrial Fibrillation) (ED) Additional Instructions: You are found to be in atrial fibrillation when you arrived. You spontaneously came out of this and are now in a normal sinus rhythm. Your history does have a concern that you have been in and out of this for quite some time. As we discussed, I am concerned about the risks associated with you being in atrial fibrillation. However, we have decided to hold off on medication until you have been able to speak with your niece as well as her primary care provider. In the event you would like to start these medications, diltiazem and Eliquis have been called into your pharmacy. If you do not start this, please at least take an aspirin once daily. Call your primary care tomorrow to set up appointment as soon as possible. Please follow respiratory he advised regarding Holter monitor. If you develop fever/chills, chest pain, shortness of breath or other new/worsening symptoms please seek care urgently once again. Referrals: Caroline Yoon, [employer] [Primary Care Provider] - Medical Decision Making Patient is a pleasant 84 year old femaile broughtin via EMS with c/c of lightheadedness and racing heart. States that this started at 1pm. She has had this multiple times historically. States she last experienced htis in July. Unclear what changed that prompted her to seek care today. She denies CP or SOB. No back pain. No recent illness, cough/cold/fevers/chills. No known thyroid dysfunction. She states she has been asked many times if she has a. fib in the past but does not believe there is a formal diagnosis. No recent change in medications. states otherwise feeling well. Reports chronic BLE edema which she states is unchanged. On exam, patient appears anxious. She appears nontoic. She is ttachycardic and in an irregularly irregular rythm. Maintaining BP well. Abdomen benign. Exam and history is most consistent with paraxysmal atrial fibrillation. 2+ distal pulses in all extremities. Her hx is not suggestive of ACS, PE, dissection or pulmonary source. Will obtatin troponin to evaluate for rate related cardiac stress. ECG was reviewed by Dr. Roy. He notes patient to be in atrial fibrillation. No acute ischemic findings noted. CXR reviewed by radiologist: FINDINGS: Lungs: There is persistent discoid atelectasis within the right middle lobe. There is persistent scarring versus discoid atelectasis medially at the left lung base. There is no interval consolidation. There is now minimal vascular congestion. Pulmonary radha: Unremarkable contours. Pleural spaces: There is stable blunting of the left cardiophrenic angle which may be due to a small amount of left pleural reaction. There is no right pleural effusion. There is no pneumothorax. Heart/Mediastinum: The mediastinal contours are unchanged. The aorta is tortuous. There is a large hiatal hernia. Bones/joints: Unremarkable. Intraperitoneal space: Visualized upper abdomen is unremarkable. IMPRESSION: Minimal vascular congestion. Otherwise significant change including areas of probable discoid atelectasis in the lower lungs and mild left pleural reaction. Upon return, patient was noted to be in the 70s. We will repeat EKG. Patient reports full resolution of all of her symptoms. Repeat ECG reviewed by Dr. Roy. NSR, rate of 86. Labs reviewed. No leukocytosis, stable H&H. Creatinine elevated at 1.1 but this is unchaged from patients baseline. Troponin <0.05. TSH slightly elevated but T4 WNL. Patient at times symptoms started, I do not feel that repeat troponin is warranted at this time, but she says she is not endorsing any chest pain, nausea, shortness of breath. Discussed these findings with the patient. She continues to feel well. Patient has been asked to for his intermediate at 4 %/year. Her has bled score is 3.4% risk of bleeding. Patient I discussed this. We discussed that the benefit of beginning her on anticoagulation outweighs the risk. However, she is very hesitant to do so. Patient seems quite anxious regarding any type of medications and found to have had a number of adverse reactions historically. She would prefer to hold off and talk with her niece as well as her primary care before getting any medications. She does agree to taking an aspirin tonight. We did discuss calling in her medications to her pharmacy if she would like to begin these. Respiratory therapy was in house unable to fit her with a Holter monitor. Patient was given aspirin. Return precautions were discussed. Patient will be discharged home with [facility] for transportation. She will contact both her niece and her primary care tomorrow to discuss risk and benefit of the medication as she does seem quite anxious and concern regarding this. All of her questions and concerns were addressed and she is in agreement this plan. HPI General Mode of arrival: EMS. Date/Time Provider Initiated Documentation: 09/22/20 20:13. Limitations to Documentation: no limitations. Information obtained by: patient, EMS, RN notes reviewed and old records reviewed. History of Present Illness 84 year old F presents to the emergency department with the chief complaint of light headed, palpitations, described as moderate and similar to prior episodes (has had this intermittently for some time, last was in July), Quality is described as other (she denies any pain), and is localized to the chest. Patient started experiencing this hour(s) (1300) and it has been intermittent. No relieving factors improve symptom(s), No exacerbating factors reported . Patient notes denies chest pain, cough, fever/chills, headaches, loss of appetite, nausea/vomiting, shortness of breath, syncope and weakness. Patient did receive the following treatments prior to arrival, other (given 5mg IV metoprolol by EMS prior to arrival) Related Data Home Medications Medication Instructions Recorded Confirmed TUMS 1 tab PO BID PRN 06/15/18 09/17/20 esthela.stocking,knee,reg,smal #12 each 06/15/18 09/17/20 thera tears eye drops 1 drp OU BID-TID 06/15/18 09/17/20 cranberry extract 1 tab PO DAILY 11/23/18 09/17/20 acetaminophen 325 mg tablet 325 mg PO PRN 03/07/19 09/17/20 ondansetron HCl 4 mg tablet 4 mg PO Q8H PRN #30 tab 05/28/20 09/17/20 probiotics 1 tab PO TID PRN 06/01/20 09/17/20 apixaban [Eliquis] 2.5 mg PO BID #14 tab 09/22/20 diltiazem HCl 60 mg PO BID #14 cap 09/22/20 Previous Rx's Medication Instructions Recorded esthela.stocking,knee,reg,smal #12 each 06/15/18 ondansetron HCl 4 mg tablet 4 mg PO Q8H PRN #30 tab 05/28/20 apixaban [Eliquis] 2.5 mg PO BID #14 tab 09/22/20 diltiazem HCl 60 mg PO BID #14 cap 09/22/20 Allergies Allergy/AdvReac Type Severity Reaction Status Date / Time cephalexin monohydrate Allergy Severe Cardiac Verified 09/22/20 20:32 [From Keflex] Dysrythmia Cephalosporins Allergy Severe Skin Rash Verified 09/22/20 20:32 Penicillins Allergy Severe Anaphylaxsi Verified 09/22/20 20:32 s meclizine Allergy Intermediate hyperactivi Verified 09/22/20 20:32 ty codeine Allergy Unknown unknown Verified 09/22/20 20:32 morphine Allergy Unknown unknown Verified 09/22/20 20:32 Sulfa (Sulfonamide Allergy Unknown unknown Verified 09/22/20 20:32 Antibiotics) sulfite Allergy Unknown unknown Verified 09/22/20 20:32 atenolol AdvReac Intermediate severe Verified 09/22/20 20:32 dizziness erythromycin base AdvReac Mild Nausea Verified 09/22/20 20:32 metoprolol AdvReac sleepless, Verified 09/14/20 09:27 agitated General HANS: 4 Review of Systems Constitutional Constitutional: Reports as per HPI, Denies chills, Denies fever(s), Denies frequent falls, Denies headache(s), Denies lethargy and Denies poor appetite Eyes Eyes: Denies change in vision ENT Ears, Nose, Mouth, and Throat: Denies vertigo, Denies dizziness and Denies headache(s) Cardiovascular Cardiovascular: Reports as per HPI, Denies chest pain at rest, Denies chest pain with activity, Denies syncope, Reports rapid heart rate, Denies claudication, Reports leg edema (chronic, reports this is unchanged), Reports lightheadedness, Denies radiating jaw, neck or arm pain, Denies dyspnea and Denies dyspnea on exertion Respiratory Respiratory: Reports as per HPI, Denies chest congestion, Denies cough, Denies pain on inspiration, Denies pain with cough, Denies dyspnea, Denies dyspnea on exertion and Denies wheezing Gastrointestinal Gastrointestinal: Reports as per HPI, Denies abdominal pain, Denies diarrhea, Denies nausea and Denies vomiting Musculoskeletal Musculoskeletal: Reports as per HPI and Denies back pain Integumentary/Breasts Skin/Breast: Reports as per HPI and Denies rash Neurologic Neurologic: Reports as per HPI, Denies vertigo, Denies dizziness, Denies syncope, Denies frequent falls, Denies headache(s), Denies paresthesias and Reports other (reports feeling lightheaded) Allergic/Immunologic Allergic/Immunologic: Denies wheezing PFSH Medical History Benign positional vertigo Compound nevus R clavicle Diplopia Diverticulitis CAYDEN (generalized anxiety disorder) Hyperlipidemia Hypertension Kidney stones Lower leg edema Osteoporosis Palpitations Syncope Surgical History History of laparotomy 11/1987 - per pt twisted gut and scar tissue. History of lumpectomy of left breast benign fibroadenoma 05/1962 Hx of appendectomy Hx of cataract surgery Hx of colectomy 22 cm removed. r/t to diverticulitis. Hx of colonoscopy 03/15/19 Hx of hysterectomy secondary to fibroids S/P ZEINA-BSO Family History Mother , from CKD Chronic kidney disease Colon cancer Brother Colon cancer from colon cancer Niece Substance abuse Crohn disease 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 or ride w/intox yard driver: No Water heater temp set <120 deg: Yes Working smoke detector in home: Yes Fire extinguisher in home: Yes Carbon monox detector in home: Yes Do you feel safe at home: Yes Do you feel safe in your relationship?: Yes Victim of physical abuse: No Victim of emotional abuse: No Victim of sexual abuse: No Would you like helpful sources: No History History 1 Para 1 Hx # Term Pregnancies 1 Multiple births Hx # Pregnancies Ectopic pregnancies AB induced Hx Number of Living Children AB spontaneous Exam Const General: cooperative, healthy appearing, comfortable, no acute distress, well developed and anxious Nutritional Appearance: average body habitus and well nourished Orientation: alert, awake and oriented x3 HENMT Head: normal to inspection Ears: hearing grossly normal bilaterally Mouth: moist mucous membranes Chest Chest: normal inspection of the chest, normal palpation of entire chest wall and no crepitus Resp Effort & Inspection: normal respiratory effort, able to speak in complete sentences and no respiratory distress Auscultation: clear to auscultation bilaterally, no rales, no rhonchi and no wheezes Cardio Rate: tachycardic Rhythm: abnormal rhythm irregularly irregular Heart Sounds: S1 normal and S2 normal GI Inspection: normal to inspection, no edema and non-distended Palpation: soft, no hepatosplenomegaly, not firm, no guarding, not rigid and nontender Auscultation: normal bowel sounds Back/Spine/Pelvis Thoracic/Lumbar Spine: thoracic and lumbar spine normal to inspection Skin General skin exam: no rashes or lesions noted Trauma: no lacerations or abrasions Neuro General: patient alert, patient awake and patient oriented x3 Cognition: normal cognition Speech: speech normal Gait: normal gait Extrem General: normal to inspection, capillary refill normal, no calf tenderness and edema Laterality: bilateral (nonpitting edema, equal bilaterally, reported to be baseline) Psych Appearance: grossly normal and well kempt Mental Status: mental status grossly normal Speech and Movement: speech and movement normal
--- NOTE | 2020-09-22 20:15 | RT.EKG_ITS ---
APPROVED REPORT Exam: Resting ECG Patient Location: E HR:123 bpm ECG Measurements Heart Rate 123 AXIS GA [id number] P [id number] QRSd 78 QRS -14 QT 327 T 5 QTc 468 Conclusion Atrial fibrillation...? atrial activity Physician: No STemi, afib, no depressions
[2020-09-22 20:30] VITALS: BP 121/88; PULSE 110; RESP 22; O2SAT 97
[2020-09-22 20:39] LABS: Abs Immature Grans 0.03 10^3/uL (0.0-0.06); Absolute Basophil Count 0.08 10^3/uL (0.0-0.2); Absolute Lymphocyte Count 2.46 10^3/uL (1.2-3.4); Absolute Monocyte Count 0.68 10^3/uL (0.1-0.8); Absolute Neutrophil Count 6.75 10^3/uL (1.2-6.7); Basophils % 0.8; HCT 36.8 % (36.0-46.0); HGB 12.5 g/dL (11.2-15.7); Immature Grans % 0.3; Lymphocytes % 24.4; MCH 30.6 pg (27.0-33.0); MPV 9.5 fL (8.0-11.0); Monocytes % 6.7; Neutrophils % 66.8; Nucleated RBC 0 %; Platelet Count 392 10^3/uL (130-400); RBC 4.09 10^6/uL (3.93-5.22); RDW 14.2 % (11.7-14.6)
[2020-09-22 20:45] VITALS: BP 135/66; PULSE 80; RESP 20; O2SAT 97
[2020-09-22 21:00] VITALS: BP 130/75; PULSE 76; RESP 18; O2SAT 97
--- NOTE | 2020-09-22 21:00 | RT.EKG_ITS ---
APPROVED REPORT Exam: Resting ECG Patient Location: E HR:86 bpm ECG Measurements Heart Rate 86 AXIS NM 176 P 8 QRSd 81 QRS -18 QT 367 T 8 QTc 441 Conclusion Sinus rhythm...normal P axis, V-rate 60- 99 Atrial premature complex...SV complex w/ short R-R interval I have reviewed and interpreted ECG and agree with software generated interpretation.
[2020-09-22 21:02] LABS: ALT 19 U/L (14-59); AST 26 U/L (15-37); Albumin 3.4 g/dL (3.4-5.0); Alkaline Phosphatase 91 U/L (46-116); Anion Gap 9.6 mmol/L (3-11); BUN 17 mg/dL (7-18); Bilirubin, Total 0.3 mg/dL (0.2-1.0); CO2 25.4 mmol/L (21.0-32.0); CREATININE 1.1 mg/dL (0.55-1.02); Calcium 8.2 mg/dL (8.5-10.1); Chloride 104 mmol/L (98-107); Estimated GFR 47.55 (mL/min/1.73m2); Glucose 123 mg/dL (74-106); PTT Activated 22.2 sec (21.0-27.5); Potassium 3.7 mmol/L (3.5-5.1); Prothrombin Time 9.9 sec (9.3-11.0); Sodium 139 mmol/L (136-145); Total Protein 7.3 g/dL (6.4-8.2); Troponin I < 0.05 ng/mL (<0.06)
[2020-09-22 21:15] VITALS: BP 142/81; PULSE 82; RESP 18; O2SAT 96
--- NOTE | 2020-09-22 21:23 | DI.VRAD_ITS ---
PROCEDURE INFORMATION: Exam: XR Chest Exam date and time: 09/22/2020 8:15 PM Age: 84 years old Clinical indication: Other: Palpitations TECHNIQUE: Imaging protocol: XR of the chest Views: 2 views. Total images: 2 COMPARISON: CR XR CHEST 2V PA LATERAL 07/12/2020 7:53 PM FINDINGS: Lungs: There is persistent discoid atelectasis within the right middle lobe. There is persistent scarring versus discoid atelectasis medially at the left lung base. There is no interval consolidation. There is now minimal vascular congestion. Pulmonary radha: Unremarkable contours. Pleural spaces: There is stable blunting of the left cardiophrenic angle which may be due to a small amount of left pleural reaction. There is no right pleural effusion. There is no pneumothorax. Heart/Mediastinum: The mediastinal contours are unchanged. The aorta is tortuous. There is a large hiatal hernia. Bones/joints: Unremarkable. Intraperitoneal space: Visualized upper abdomen is unremarkable. IMPRESSION: Minimal vascular congestion. Otherwise significant change including areas of probable discoid atelectasis in the lower lungs and mild left pleural reaction.. Dictated and Authenticated by: Cornelius Petty MD. Ordering:GILMAR Almanzar MD
[2020-09-22 22:48] LABS: FREE T4 1.04 ng/dL (0.76-1.46)
[2020-09-22] MEDS: Aspirin 325 MG TAB PO (23:00)
== END 2020-09-22 23:20 | disposition home or self-care (01) ==
PROVIDERS: Emergency Provider Physician Assistant; PCP Nurse Practitioner Adult Health
DX: I48.0 Paroxysmal atrial fibrillation (principal)
CPT/HCPCS: 36415; 80053; 93005; 99285; 71046; 83735; 84439; 84443; 84484; 85025; 85610; 85730; 93010; 93225

== ENCOUNTER 2020-09-22 21:32 | Outpatient (RCR) | payer MEDICARE, OTHER, SELFPAY ==
--- NOTE | 2020-09-22 21:30 | HOLTER_ITS ---
APPROVED REPORT Exam Type: HOLTER MONITOR APPLICATION Reason for Test: AFIB Patient Location: O Conclusion This was a 48-hour Holter monitor, reportedly ordered for palpitations Predominant rhythm was sinus with an average heart rate of 84. Minimum was 60, maximum 163 There were rare ventricular ectopic beats and couplets. There was no ventricular tachycardia There were moderately frequent atrial premature beats and multiple self-limited atrial runs (runs of premature atrial contractions) . Some of these runs were labeled atrial fibrillation, but rather jus t seem to be runs of PACs There were no pauses greater than 3 seconds There was no high-grade AV block
== END 2020-10-07 23:59 | disposition home or self-care (01) ==
LOC: RT 21:32
PROVIDERS: PCP Family Medicine; Visit Provider Student in an Organized Health Care Education/Training Program
DX: I48.91 Unspecified atrial fibrillation (principal); R00.2 Palpitations; I49.1 Atrial premature depolarization
CPT/HCPCS: 93227; 93225; 93226

== ENCOUNTER 2020-09-25 07:08 | Emergency (ER) | payer MEDICARE, OTHER, SELFPAY ==
[2020-09-25] VITALS (10 sets, daily range): BP systolic 141–167; BP diastolic 78–81; PULSE 82–104; RESP 13–22; TEMP 37; O2SAT 96–97
--- NOTE | 2020-09-25 07:00 | RT.EKG_ITS ---
APPROVED REPORT Exam: Resting ECG Patient Location: E HR:89 bpm ECG Measurements Heart Rate 89 AXIS NV 154 P 174 QRSd 84 QRS 206 QT 375 T 166 QTc 459 Conclusion Right and left arm electrode reversal, interpretation assumes no reversal Sinus or ectopic atrial rhythm...P axis (-45,135) Atrial premature complex...SV complex w/ short R-R interval Right axis deviation...QRS axis ( 91,269) Abnormal T, consider ischemia, diffuse leads...T <-0.20mV, ant/lat/inf
--- NOTE | 2020-09-25 07:48 | W.ED.GENAD ---
Discharge Plan Disposition Patient Disposition: HOME Condition: Stable Discharge Details Clinical Impression: Hypertension, Weakness Primary Care Provider: Caroline Yoon ED Provider: Dani Campa Home Meds and New Rx's Prescriptions: No Action cranberry extract 1 tab PO DAILY RF: 0 TUMS 1 tab PO BID PRNRF: 0 thera tears eye drops 1 drp OU BID-TID RF: 0 (DME) esthela.stocking,knee,reg,smal misc See Dose Instructions .ROUTE .MEDSUPPLY Qty: 12 RF: 0 acetaminophen [Tylenol] 325 mg tablet 325 mg PO PRN RF: 0 probiotics 1 tab PO TID PRNRF: 0 omeprazole 20 mg capsule,delayed release(DR/EC) 20 mg PO DAILY Qty: 30 RF: 1 ondansetron HCl [Zofran] 4 mg tablet 4 mg PO Q8H PRN (Reason: nausea and vomiting) Qty: 30 RF: 0 Eliquis 2.5 mg tablet 2.5 mg PO BID Qty: 14 RF: 0 diltiazem HCl 60 mg capsule,extended release 12 hr 60 mg PO BID Qty: 14 RF: 0 Hold Instructions: Home Medication placed on hold at Doctor's office Discharge Instructions Instructions: Hypertension (ED) Additional Instructions: Your blood pressure and heart rate were normal here follow up with your primary care provider within 1 week if you feel more ill, have difficulty breathing or chest pain return to the emergency department Medical Decision Making 84 yo female with hx of recently diagnosed afib who started eliquis last night, htn, hld, who comes in after she got up to use the bathroom this morning, felt her heart racing and states her BP was high but doesn't remember the reading. She denies chest pain, dyspnea, headache, vomit, abdominal pain. she is now complaining of general tiredeness which she states has been going on off and on for over a year. Denies any unilateral weakness, changes in speech or vision changes. she is speaking in full sentences on exam in no distress, caox4 without focal motor or sensation deficitis and CN II-XII intact. STable vitals now with HR in the 80's, and BP is 140/80. Unclear cause for her genreal tiredness, will obtain cbc to evaluate for anemia, also evalaute for electrolyte abnormalities. No findings to suggest cva. 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 no chest pain, dyspnea and history seems inconsistent with entities such as acs and no hypoxia evidence of dvt to suggest PE. No tearing back pain and normal vascular exam so doubt dissection pt remains stable and states she feels well and still has no pain in the chest abodmen or head. BP 130/60 with HR of 70 in sinus. Lab work unremarkble, does have positive nitrities which is chronic for her and denies any urinary symptoms so will hold on any antibiotics. She is ambulating at her baseline unassisted. She feels well enough for d/c, will have her f/u with pcp with return precautions Differential Diagnosis Differential Diagnosis: anemia, electrolyte abnormality, uti Medical Records Medical records reviewed: Yes I reviewed the patient's medical records. Lab Data Lab results reviewed: Yes I reviewed the patient's lab results. ECG Data Attestation: I personally reviewed and interpreted this ECG (s) as follows: Prior ECG tracings: not available for review Interpretation: sinus rhythm, rate of 90, pr 154, qtc 459, no acute st t wave ischemic findings HPI General Mode of arrival: EMS. Date/Time Provider Initiated Documentation: 09/25/20 07:32. Limitations to Documentation: no limitations. Information obtained by: patient. History of Present Illness 84 year old F presents to the emergency department with the chief complaint of general tiredness, described as mild, Patient started experiencing this year(s) (1) and it has been intermittent. No relieving factors improve symptom(s), No exacerbating factors reported . Patient did receive the following treatments prior to arrival, none Related Data Home Medications Medication Instructions Recorded Confirmed TUMS 1 tab PO BID PRN 06/15/18 09/25/20 esthela.stocking,knee,reg,smal #12 each 06/15/18 09/23/20 thera tears eye drops 1 drp OU BID-TID 06/15/18 09/25/20 cranberry extract 1 tab PO DAILY 11/23/18 09/25/20 acetaminophen 325 mg tablet 325 mg PO PRN 03/07/19 09/25/20 ondansetron HCl 4 mg tablet 4 mg PO Q8H PRN #30 tab 05/28/20 09/25/20 probiotics 1 tab PO TID PRN 06/01/20 09/25/20 apixaban [Eliquis] 2.5 mg PO BID #14 tab 09/22/20 09/25/20 diltiazem HCl 60 mg 60 mg PO BID #14 cap 09/22/20 09/25/20 capsule,extended release 12 hr omeprazole 20 mg capsule,delayed 20 mg PO DAILY #30 cap 09/23/20 09/25/20 release Previous Rx's Medication Instructions Recorded esthela.stocking,knee,reg,smal #12 each 06/15/18 ondansetron HCl 4 mg tablet 4 mg PO Q8H PRN #30 tab 05/28/20 apixaban [Eliquis] 2.5 mg PO BID #14 tab 09/22/20 diltiazem HCl 60 mg 60 mg PO BID #14 cap 09/22/20 capsule,extended release 12 hr omeprazole 20 mg capsule,delayed 20 mg PO DAILY #30 cap 09/23/20 release Allergies Allergy/AdvReac Type Severity Reaction Status Date / Time cephalexin monohydrate Allergy Severe Cardiac Verified 09/25/20 07:20 [From Keflex] Dysrythmia Cephalosporins Allergy Severe Skin Rash Verified 09/25/20 07:20 Penicillins Allergy Severe Anaphylaxsi Verified 09/25/20 07:20 s meclizine Allergy Intermediate hyperactivi Verified 09/25/20 07:20 ty codeine Allergy Unknown unknown Verified 09/25/20 07:20 morphine Allergy Unknown unknown Verified 09/25/20 07:20 Sulfa (Sulfonamide Allergy Unknown unknown Verified 09/25/20 07:20 Antibiotics) sulfite Allergy Unknown unknown Verified 09/25/20 07:20 atenolol AdvReac Intermediate severe Verified 09/25/20 07:20 dizziness erythromycin base AdvReac Mild Nausea Verified 09/25/20 07:20 metoprolol AdvReac sleepless, Verified 09/25/20 07:20 agitated General Stated Complaint: GenMedical HANS: 3 Review of Systems All systems reviewed & are unremarkable except as noted in HPI and below Constitutional Constitutional: Denies chills and Denies fever(s) Cardiovascular Cardiovascular: Denies chest pain and Denies dyspnea Respiratory Respiratory: Denies cough and Denies dyspnea Gastrointestinal Gastrointestinal: Denies abdominal pain, Denies nausea and Denies vomiting Musculoskeletal Musculoskeletal: Denies joint swelling Psychiatric Psychiatric: Denies depression PFSH Medical History Acute anterior epistaxis Benign positional vertigo Compound nevus R clavicle Diplopia Diverticulitis s/p colectomy 11/1985 CAYDEN (generalized anxiety disorder) Hyperlipidemia Hypertension Kidney stones Lower leg edema Compression stockings Osteoporosis Dx'ed DEXA years ago--did take Calcitonin nasal spray for treatment (unknown length of time) Palpitations Syncope Surgical History History of laparotomy 11/1987 - per pt twisted gut and scar tissue. History of lumpectomy of left breast benign fibroadenoma 05/1962 Hx of appendectomy Hx of cataract surgery Hx of colectomy (~11/1985) 22 cm removed. r/t to diverticulitis. Hx of colonoscopy 03/15/19 Hx of hysterectomy secondary to fibroids S/P ZEINA-BSO Family History Mother , from CKD Chronic kidney disease Colon cancer Brother Colon cancer from colon cancer Heart disease Niece Substance abuse Crohn disease Sister Heart disease 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 or ride w/intox 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: No Water heater temp set <120 deg: Yes Working smoke detector in home: Yes Fire extinguisher in home: Yes Carbon monox detector in home: Yes Do you feel safe at home: Yes Do you feel safe in your relationship?: Yes Victim of physical abuse: No Victim of emotional abuse: No Victim of sexual abuse: No Would you like helpful sources: No History History 1 Para 1 Hx # Term Pregnancies 1 Multiple births Hx # Pregnancies Ectopic pregnancies AB induced Hx Number of Living Children AB spontaneous Exam Const General: no acute distress Orientation: alert HENMT Head: normal to inspection Ears: external ears normal General nose exam: external nose normal Mouth: moist mucous membranes Eyes General: appearance normal, both eyes and all related structures Neck Neck: normal visual inspection Resp Effort & Inspection: normal respiratory effort and able to speak in complete sentences Cardio Rate: regular rate Skin General skin exam: no rashes or lesions noted Neuro General: patient alert and patient oriented x3 Extrem General: normal to inspection Psych Mental Status: mental status grossly normal Course Vital Signs Vital signs: Vital Signs Temperature 37.0 C 09/25/20 07:11 Pulse 104 H 09/25/20 07:11 Respiratory Rate 18 09/25/20 07:11 Blood Pressure 167/81 H 09/25/20 07:11 Pulse Oximetry 96 09/25/20 07:11 Temperature 37.0 C 09/25/20 07:11 Temperature Source Temporal Artery Scan 09/25/20 07:11 Pulse 93 H 09/25/20 07:16 Pulse 96 H 09/25/20 07:20 Respiratory Rate 18 09/25/20 07:22 Respiratory Effort Non-Labored 09/25/20 07:22 Respiratory Depth Normal 09/25/20 07:22 Respiratory Pattern Normal 09/25/20 07:22 Blood Pressure 167/80 H 09/25/20 07:16 Blood Pressure Mean 103 09/25/20 07:16 Blood Pressure Position Sitting 09/25/20 07:11 Pulse Oximetry 97 09/25/20 07:20 Oxygen Delivery Method Room Air 09/25/20 07:11 Oxygen Flow Rate 0 09/25/20 07:11 Pain Level 0 09/25/20 07:11
[2020-09-25] MEDS: Apixaban 2.5 MG TAB PO (08:01)
[2020-09-25 08:13] LABS: Abs Immature Grans 0.01 10^3/uL (0.0-0.06); Absolute Basophil Count 0.06 10^3/uL (0.0-0.2); Absolute Eosinophil Count 0.05 10^3/uL (0.0-0.7); Absolute Lymphocyte Count 1.21 10^3/uL (1.2-3.4); Absolute Neutrophil Count 4.22 10^3/uL (1.2-6.7); Eosinophils % 0.8; HCT 37.3 % (36.0-46.0); HGB 12.6 g/dL (11.2-15.7); Immature Grans % 0.2; Lymphocytes % 19.7; MCH 30.2 pg (27.0-33.0); MCHC 33.8 % (32.0-36.0); MCV 89.4 fL (80-95); MPV 9.8 fL (8.0-11.0); Monocytes % 9.8; Neutrophils % 68.5; Nucleated RBC 0 %; Platelet Count 324 10^3/uL (130-400); RBC 4.17 10^6/uL (3.93-5.22); RDW 13.8 % (11.7-14.6); RDW-SD 45.2 fL; WBC 6.15 10^3/uL (4.4-10.8)
[2020-09-25 08:26] LABS: PTT Activated 22.4 sec (21.0-27.5); Prothrombin Time 10.2 sec (9.3-11.0)
[2020-09-25 08:36] LABS: ALT 18 U/L (14-59); AST 26 U/L (15-37); Albumin 3.6 g/dL (3.4-5.0); Alkaline Phosphatase 84 U/L (46-116); Anion Gap 13.1 mmol/L (3-11); BUN 14 mg/dL (7-18); Bilirubin, Total 0.6 mg/dL (0.2-1.0); CO2 23.9 mmol/L (21.0-32.0); Calcium 8.7 mg/dL (8.5-10.1); Chloride 105 mmol/L (98-107); Estimated GFR 53.08 (mL/min/1.73m2); Glucose 108 mg/dL (74-106); Magnesium 2.1 mg/dL (1.8-2.4); Potassium 3.7 mmol/L (3.5-5.1); Sodium 142 mmol/L (136-145); Total Protein 7.1 g/dL (6.4-8.2)
[2020-09-25 08:46] LABS: Bilirubin Negative (Negative); Blood Small (Negative); Clarity Clear (Clear); Glucose Negative (Negative); Ketones 40 mg/dL (Negative); Leukocyte Esterase Trace (Negative); Nitrite Positive (Negative); Urobilinogen 0.2 EU/dL (Up TO 0.2)
[2020-09-25 08:53] LABS: Bacteria Few HPF (Negative); C & S Indicated? Yes; Casts Negative LPF (Negative); Crystals Negative HPF (Negative); Epithelial Cells Few HPF (Negative); Mucus Negative (Negative); Other Cells Negative (Negative)
[2020-09-25 09:00] LABS: Troponin I < 0.05 ng/mL (<0.06)
== END 2020-09-25 09:59 | disposition home or self-care (01) ==
PROVIDERS: Emergency Provider Emergency Medicine; PCP Nurse Practitioner Adult Health
DX: I10 Essential (primary) hypertension (principal); R53.1 Weakness
CPT/HCPCS: 36415; 80053; 93005; 93227; 99284; 81003; 81015; 83735; 84484; 85025; 85610; 85730; 87086; 93010; 93226

== ENCOUNTER 2020-09-29 02:14 | Outpatient (CLI) | payer MEDICARE, OTHER, SELFPAY ==
--- NOTE | 2020-09-29 07:30 | DI.US_ITS ---
APPROVED REPORT EXAM: Comprehensive 2D, Doppler, and color-flow Echocardiogram Patient Location: Out-Patient Agency Trainer: Alisson Dunaway RDCS (AE) Indications: New A Fib Other Information Study Quality: Adequate Conclusion Left Ventricle : The left ventricle is normal size. There is normal left ventricular wall thickness. The left ventricular systolic function is normal. The left ventricular ejection fraction is within th e normal range. LVEF is 60%. Right Ventricle : The right ventricle is normal size. The right ventricular systolic function is norm al. The RVSP is 22.6 mmHg. Atria : The left atrium size is normal. The right atrium size is normal. Mitral Valve : Mild mitral annular calcification. Mild mitral regurgitation. No evidence of mitral va lve stenosis. Great Vessels : The aortic root is normal in size. The ascending aorta is normal in size. Aortic arch is not well visualized. IVC is normal in size and collapses >50% with inspiration. Please see remainder of study for further details. Wall motion Left Ventricle The left ventricle is normal size. The left ventricular systolic function is normal. The left ventric ular ejection fraction is within the normal range. There is normal left ventricular wall thickness. T here is normal LV segmental wall motion. There is no ventricular septal defect visualized. LVEF is 60 %. Right Ventricle The right ventricle is normal size. The right ventricular systolic function is normal. The RVSP is 22 .6 mmHg. Atria The left atrium size is normal. The right atrium size is normal. The interatrial septum is intact wit h no evidence for an atrial septal defect. Atrial septal aneurysm is present. Aortic Valve The aortic valve is normal in structure. Aortic valve is trileaflet. There is no aortic valvular sten osis. Trace to mild aortic regurgitation. Mitral Valve Mild mitral annular calcification. No evidence of mitral valve stenosis. Mild mitral regurgitation. Tricuspid Valve The tricuspid valve is normal in structure. There is no tricuspid valve stenosis. Mild tricuspid regu rgitation. Pulmonic Valve The pulmonary valve is normal in structure. There is no pulmonic valvular stenosis. Trace to mild pul moshe regurgitation. Great Vessels The aortic root is normal in size. The ascending aorta is normal in size. Aortic arch is not well vis ualized. IVC is normal in size and collapses >50% with inspiration. Pericardium There is no pericardial effusion. 2D Dimensions IVSD d PLAX 0.90 cm F: 0.6-1.0 LV Vol A2C d MOD 57.0 mL LVPW d PLAX 1.02 cm F: 0.6 - 1.0 LV Vol A4C d MOD 53.1 mL LVID d PLAX 4.10 cm F: 3.8 - 5.2 LA vol/ BSA A2C s A-L 22.9 mL/m2 LVDs 2.80 cm F: 2.2 - 3.5 LA vol/ BSA A4C s A-L 24.1 mL/m2 Ao Root d 2.23 cm F: 2.7 - 3.3 LA Vol/ BSA Biplane s A-L 25.2 mL/m2 RA Area A4C 11.28 cm2 LA Area A4C s MOD 15.17 cm2 RA Vol/ BSA A4C s A-L 17.0 mL/m2 LA Area A2C s MOD 13.79 cm2 Ao Asc Diam d 2.90 cm F: 2.3 - 3.1 LV EF A4C MOD 62.0 % LV EF Teichholz 60.0 % LV EF A2C MOD 60.1 % LVEF (Jackson's) 60.34 % F: 54 - 74 LV EF Biplane MOD 60.3 % LV Volume 45.82 mL F: 46 - 106 SV 33.47 mL LV Volume Index 29.94 mL/m2 F: 29 - 61 SV Index 21.82 mL/m2 LV Vol Biplane MOD 55.5 mL FS 31.55 % M-Mode TAPSE 1.61 cm (M/F) >1.7 LV Diastology MV E' medial 0.071 (>0.07 m/s) E/A Ratio 1.1 LV E/e MED 12.05 (<14) MV E Vmax 0.86 (0.4-1.3 m/s) MV E' lateral 0.142 (>0.1 m/s) MV A Vmax 0.75 (0.4-1.3 m/s) LV E/e LAT 6.05 (<14) MV E/A Ratio 1.08 MV E/E' medial 12.08 MV E/E' lateral 6.08 Aortic Valve LVOT Area 2.53 cm2 AoV Area Vmax 1.82 cm2 LVOT Vmax 1.12 m/s AoV Area/ BSA (Vmax) 1.19 cm2/m2 LVOT Mean Jeff. 0.74 m/s IRENE Mean Jeff. 1.63 cm2 LVOT Peak Grad 5.0 mmHg IRENE Mean Jeff. Index 1.06 cm2/m2 LVOT Mean Grad 2.5 mmHg AR DT 2250 msec LVOT VTI 0.235 m AR PHT 652 msec LVOT Diam s 1.75 cm AoV Vmax 1.56 m/s Velocity Ratio 0.71 AoV Mean Jeff. 1.14 m/s AoV Peak Grad 9.7 mmHg LVOT SV 59.39 mL AoV Mean Grad 5.6 mmHg AoV VTI 0.332 m AoV Area VTI 1.79 cm2 AoV Area/ BSA (VTI) 1.17 cm/m2 Mitral Valve MV DT 200 (160-240 msec) MR Vmax 5.40 m/s MV PHT 58 msec MR VTI 1.523 m MV Area PHT 3.79 cm2 MR Peak Grad 116.7 mmHg MV VTI 0.272 m MR Mean Grad 87.3 mmHg MV VTI Annulus 0.283 m MR PISA Radius 0.39 cm MV Area VTI 2.28 (4.0-6.0 cm2) MR EROA 0.06 cm2 MR Aliasing Velocity 0.35 m/s MR PISA 0.95 cm2 Pulmonary Valve PV Vmax 1.15 (0.5-1.5 m/s) RVOT Peak Gr. 1.48 mmHg PV Peak Grad 5.3 mmHg RVOT Mean Gr. 1.05 mmHg PV Mean Grad 3.0 mmHg RVOT VTI 0.134 m PV VTI 0.239 m RVOT Vmax 0.61 m/s Tricuspid Valve TR Peak Grad 19.5 mmHg TR Vmax 2.21 m/s RA Pressure 3.00 mmHg RVSP (TR) 22.6 mmHg
== END 2020-09-29 02:34 ==
PROVIDERS: PCP Nurse Practitioner Adult Health; Visit Provider Nurse Practitioner Adult Health
DX: I48.91 Unspecified atrial fibrillation (principal); I34.0 Nonrheumatic mitral (valve) insufficiency
CPT/HCPCS: 93306

== ENCOUNTER 2020-10-26 03:36 | Outpatient (CLI) | payer MEDICARE, OTHER, SELFPAY ==
[2020-10-26 11:15] LABS: HGB 12.6 g/dL (11.2-15.7); MCH 29.9 pg (27.0-33.0); MCHC 33.2 % (32.0-36.0); MCV 90.3 fL (80-95); MPV 9.1 fL (8.0-11.0); Platelet Count 404 10^3/uL (130-400); RBC 4.21 10^6/uL (3.93-5.22); RDW 13.8 % (11.7-14.6); RDW-SD 45.9 fL; WBC 7.27 10^3/uL (4.4-10.8)
[2020-10-26 11:45] LABS: Anion Gap 9.6 mmol/L (3-11); BUN 17 mg/dL (7-18); CO2 27.4 mmol/L (21.0-32.0); CREATININE 1.2 mg/dL (0.55-1.02); Calcium 9.2 mg/dL (8.5-10.1); Chloride 106 mmol/L (98-107); Estimated GFR 43.01 (mL/min/1.73m2); Glucose 106 mg/dL (74-106); Potassium 4.2 mmol/L (3.5-5.1); Sodium 143 mmol/L (136-145)
== END 2020-10-26 03:37 | disposition home or self-care (01) ==
LOC: LBO 03:36
PROVIDERS: PCP Nurse Practitioner Adult Health; Visit Provider Nurse Practitioner Adult Health
DX: I48.91 Unspecified atrial fibrillation (principal); I10 Essential (primary) hypertension; Z51.81 Encounter for therapeutic drug level monitoring; Z87.19 Personal history of other diseases of the digestive system
CPT/HCPCS: 36415; 80048; 85027

== ENCOUNTER → 2020-11-09 12:22 | Outpatient (BNVA) | payer MEDICARE, OTHER, SELFPAY | PROVIDERS: PCP Nurse Practitioner Adult Health; Referring Provider Nurse Practitioner Adult Health; Visit Provider Internal Medicine Cardiovascular Disease | DX: I48.0 Paroxysmal atrial fibrillation (principal); I10 Essential (primary) hypertension; Z79.01 Long term (current) use of anticoagulants | CPT/HCPCS: 99202; 99214 ==

== ENCOUNTER 2021-02-12 19:02 | Observation (INO) | payer MEDICARE, OTHER, SELFPAY ==
[2021-02-12] VITALS (81 sets, daily range): BP systolic 102–160; BP diastolic 54–127; PULSE 59–202; RESP 10–32; TEMP 36.5; O2SAT 94–97
--- NOTE | 2021-02-12 19:00 | RT.EKG_ITS ---
APPROVED REPORT Exam: Resting ECG Reason for Exam: Rapid HR Patient Location: E HR:149 bpm ECG Measurements Heart Rate 149 AXIS DC 100 P 0 QRSd 71 QRS -22 QT 286 T 47 QTc 466 Conclusion Rapid Afib rate related st changes
--- NOTE | 2021-02-12 19:00 | DI.RAD_ITS ---
Exam(s) XR PORTABLE CHEST AP EXAM: XR PORTABLE CHEST AP CLINICAL HISTORY: Palpitations TECHNIQUE: COMPARISON: CR,XR XR CHEST 2V PA LATERAL from 09/22/2020 FINDINGS: Portable AP chest was obtained. Heart is at the upper limits of normal size. There is a large retro cardiac hiatus hernia. There are areas of scarring in the lung bases, unchanged from prior radiograp hs of September 22. No evidence of acute consolidation. No pleural effusion on this frontal film. IMPRESSION: No evidence of acute process. RADIATION DOSE DELIVERED: Total DLP
--- NOTE | 2021-02-12 19:14 | ED.GENADUL_ITS ---
Discharge Plan Disposition Patient Disposition: [facility] INPATIENT Condition: Improving Discharge Details Clinical Impression: Atrial fibrillation with rapid ventricular response Primary Care Provider: Caroline Yoon ED Provider: Cornelius Shaikh Home Meds and New Rx's Prescriptions: No Action cranberry extract 1 tab PO DAILY RF: 0 (DME) esthela.stocking,knee,reg,smal Misc See Rx Instructions .ROUTE .MEDSUPPLY RF: 0 TUMS 1 tab PO BID PRNRF: 0 thera tears eye drops 1 drp OU BID-TID RF: 0 acetaminophen [Tylenol] 325 mg tablet 325 mg PO PRN RF: 0 probiotics 1 tab PO TID PRNRF: 0 ondansetron HCl [Zofran] 4 mg tablet 4 mg PO Q8H PRN (Reason: nausea and vomiting) Qty: 30 RF: 0 Eliquis 2.5 mg tablet 2.5 mg PO BID Qty: 180 RF: 3 diltiazem HCl 60 mg capsule,extended release 12 hr 60 mg PO BID Qty: 180 RF: 3 Hold Instructions: Home Medication placed on hold at Doctor's office omeprazole 20 mg capsule,delayed release(DR/EC) 20 mg PO DAILY Qty: 90 RF: 3 Medical Decision Making 85-year-old female with a history of atrial fibrillation presents with palpitations and rapid heart rate over the course of the day today. Associated with weakness and lightheadedness but no syncope and no chest pain. She was seen by EMS, given adenosine 6 and 12 mg with no change to rhythm. She arrives to ER with a blood pressure in the 160s, alert and with staff. She appears to have rapid atrial fibrillation and may have dehydration or electrolyte abnormality. IV access established, screening labs obtained, patient underwent EKG, portable chest x-ray, was given a fluid bolus and placed on diltiazem with 15 mg bolus and subsequent infusion. Review of records notes recent echocardiogram with normal LV systolic function. Today, chest x-ray with known hiatal hernia and scarring, do not appreciate acute findings. Laboratories note a white count of 8, hematocrit 39, platelets 380. Chemistries reveal sodium 140, potassium 3.4, BUN 16, creatinine 1.1. Magnesium 2.0 troponin negative. Urinalysis appears contaminated. Patient's heart rate has improved to approximately 100 on diltiazem drip. Will discuss admission with hospitalist team. HPI General Mode of arrival: EMS . Date/Time Provider Initiated Documentation: 02/12/21 19:17 . Limitations to Documentation: no limitations . Information obtained by: patient and EMS . History of Present Illness 85 year old F presents to the emergency department with the chief complaint of Rapid heart rate today, described as moderate, Quality is described as dull, and is localized to the chest. Patient reports no radiation. Patient started experiencing this hour(s) and it has been constant. No relieving factors improve symptom(s), No exacerbating factors reported . Patient notes weakness; denies shortness of breath and syncope. Patient did receive the following treatments prior to arrival, none Related Data Home Medications Medication Instructions Recorded Confirmed TUMS 1 tab PO BID PRN 06/15/18 02/12/21 thera tears eye drops 1 drp OU BID-TID 06/15/18 02/12/21 cranberry extract 1 tab PO DAILY 11/23/18 02/12/21 acetaminophen 325 mg tablet 325 mg PO PRN 03/07/19 02/12/21 ondansetron HCl 4 mg tablet 4 mg PO Q8H PRN #30 tab 05/28/20 02/12/21 probiotics 1 tab PO TID PRN 06/01/20 02/12/21 apixaban 2.5 mg tablet 2.5 mg PO BID #180 tab 10/26/20 02/12/21 diltiazem HCl 60 mg 60 mg PO BID #180 cap 10/26/20 02/12/21 capsule,extended release 12 hr esthela.stocking,knee,reg,smal each 10/30/20 omeprazole 20 mg capsule,delayed 20 mg PO DAILY #90 cap 11/23/20 02/12/21 release Previous Rx's Medication Instructions Recorded ondansetron HCl 4 mg tablet 4 mg PO Q8H PRN #30 tab 05/28/20 apixaban 2.5 mg tablet 2.5 mg PO BID #180 tab 10/26/20 diltiazem HCl 60 mg 60 mg PO BID #180 cap 10/26/20 capsule,extended release 12 hr omeprazole 20 mg capsule,delayed 20 mg PO DAILY #90 cap 11/23/20 release Allergies Allergy/AdvReac Type Severity Reaction Status Date / Time cephalexin monohydrate Allergy Severe Cardiac Verified 02/12/21 20:48 [From Keflex] Dysrythmia Cephalosporins Allergy Severe Skin Rash Verified 02/12/21 20:48 Penicillins Allergy Severe Anaphylaxsi Verified 02/12/21 20:48 s meclizine Allergy Intermediate hyperactivi Verified 02/12/21 20:48 ty codeine Allergy Unknown unknown Verified 02/12/21 20:48 morphine Allergy Unknown unknown Verified 02/12/21 20:48 Sulfa (Sulfonamide Allergy Unknown unknown Verified 02/12/21 20:48 Antibiotics) sulfite Allergy Unknown unknown Verified 02/12/21 20:48 atenolol AdvReac Intermediate severe Verified 02/12/21 20:48 dizziness erythromycin base AdvReac Mild Nausea Verified 02/12/21 20:48 metoprolol AdvReac sleepless, Verified 02/12/21 20:48 agitated General Stated Complaint: Palpitatns HANS: 2 Review of Systems Narrative: No chest pain, no shortness of breath, no syncope. 8 systems reviewed and otherwise negative [facility] Medical History Acute anterior epistaxis Benign positional vertigo Compound nevus R clavicle Diplopia Diverticulitis s/p colectomy 11/1985 CAYDEN (generalized anxiety disorder) Hyperlipidemia Hypertension Kidney stones Lower leg edema Compression stockings Osteoporosis Dx'ed DEXA years ago--did take Calcitonin nasal spray for treatment (unknown length of time) Palpitations Syncope Surgical History History of laparotomy 11/1987 - per pt twisted gut and scar tissue. History of lumpectomy of left breast benign fibroadenoma 05/1962 Hx of appendectomy Hx of cataract surgery Hx of colectomy (~11/1985) 22 cm removed. r/t to diverticulitis. Hx of colonoscopy 03/15/19 Hx of hysterectomy secondary to fibroids S/P ZEINA-BSO Family History Mother , from CKD Chronic kidney disease Colon cancer Brother Colon cancer from colon cancer Heart disease Niece Substance abuse Crohn disease Sister Heart disease 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 or ride w/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 Pleasant, well groomed, interactive. HEAD: Normocephalic, atraumatic ENT: Mucous membranes moist, oropharynx unremarkable, External ear exam unremarkable EYES: PERRL, EOMI NECK: Full ROM, no GRICELDA, no menigismus CHEST/RESP: Nontender, clear to auscultation bilateral, no wheeze/rhonchi/rales CARDIOVASCULAR: Rapid, irregularly irregular. 2+ Rad pulse bilateral ABDOMEN: Soft, nontender, no mass. +Bowel sounds EXT: Full ROM, 2-3+ pretibial edema, no rash Neuro: Grossly normal neurologic exam, conversant, interactive. Psych: Speech fluent, thoughts congruent, affect normal Course Vital Signs Vital signs: Vital Signs Temperature 36.5 C 02/12/21 19:05 Pulse 199 H 02/12/21 19:05 Respiratory Rate 26 H 02/12/21 19:05 Pulse Oximetry 96 02/12/21 19:05 Temperature 36.5 C 02/12/21 19:05 Temperature Source Tympanic 02/12/21 19:05 Pulse 199 H 02/12/21 19:05 Respiratory Rate 26 H 02/12/21 19:05 Pulse Oximetry 96 02/12/21 19:05 Oxygen Delivery Method Room Air 02/12/21 19:05 Oxygen Flow Rate 0 02/12/21 19:05 Pain Level 0 02/12/21 19:05
[2021-02-12] MEDS: dilTIAZem 25 MG/5 ML VIAL 15 MG IVP (19:23)
[2021-02-12] MEDS: dilTIAZem 125 MG in Normal Saline 100 ML 10 MG IV (19:25)
[2021-02-12] MEDS: Normal Saline 1,000 ML 1000 ML IV (19:27)
[2021-02-12] MEDS: dilTIAZem 25 MG/5 ML VIAL 10 MG IVP (19:47)
[2021-02-12 19:54] LABS: Abs Immature Grans 0.02 10^3/uL (0.0-0.06); Absolute Basophil Count 0.07 10^3/uL (0.0-0.2); Absolute Eosinophil Count 0.08 10^3/uL (0.0-0.7); Absolute Lymphocyte Count 1.93 10^3/uL (1.2-3.4); Absolute Monocyte Count 0.78 10^3/uL (0.1-0.8); Absolute Neutrophil Count 5.91 10^3/uL (1.2-6.7); Basophils % 0.8; Eosinophils % 0.9; HCT 39.1 % (36.0-46.0); Immature Grans % 0.2; MCH 29.1 pg (27.0-33.0); MCHC 33.2 % (32.0-36.0); MCV 87.5 fL (80-95); MPV 9.4 fL (8.0-11.0); Monocytes % 8.9; Neutrophils % 67.2; Nucleated RBC 0 %; Platelet Count 380 10^3/uL (130-400); RBC 4.47 10^6/uL (3.93-5.22); RDW 13.3 % (11.7-14.6); RDW-SD 42.4 fL; WBC 8.79 10^3/uL (4.4-10.8)
--- NOTE | 2021-02-12 20:10 | DI.VRAD_ITS ---
PROCEDURE INFORMATION: Exam: XR Chest Exam date and time: 02/12/2021 7:11 PM Age: 85 years old Clinical indication: Other: Palpitations TECHNIQUE: Imaging protocol: XR of the chest. Views: 1 view. COMPARISON: CR XR CHEST 2V PA LATERAL 09/22/2020 8:56 PM FINDINGS: Lungs: Stable bibasilar linear scarring/atelectasis. Otherwise the lungs are clear. Pleural spaces: Unremarkable. No pleural effusion. No pneumothorax. Heart/Mediastinum: Unremarkable. No cardiomegaly. Bones/joints: Unremarkable. IMPRESSION: No evidence of acute cardiopulmonary process. Dictated and Authenticated by: Quique Castellanos MD. Ordering:AZALIA Shields MD
[2021-02-12 20:12] LABS: ALT 15 U/L (14-59); AST 21 U/L (15-37); Albumin 3.7 g/dL (3.4-5.0); Alkaline Phosphatase 126 U/L (46-116); Anion Gap 12.4 mmol/L (3-11); BUN 16 mg/dL (7-18); Bilirubin, Total 0.4 mg/dL (0.2-1.0); CO2 23.6 mmol/L (21.0-32.0); CREATININE 1.1 mg/dL (0.55-1.02); Calcium 8.8 mg/dL (8.5-10.1); Chloride 104 mmol/L (98-107); Estimated GFR 47.43 (mL/min/1.73m2); Glucose 135 mg/dL (74-106); Potassium 3.4 mmol/L (3.5-5.1); Sodium 140 mmol/L (136-145); Total Protein 7.6 g/dL (6.4-8.2); Troponin I < 0.05 ng/mL (<0.06)
[2021-02-12 20:20] LABS: Bilirubin Negative (Negative); Blood Trace-lysed (Negative); Clarity Clear (Clear); Glucose Negative (Negative); Ketones Negative (Negative); Leukocyte Esterase Moderate (Negative); Nitrite Negative (Negative); Urobilinogen 0.2 EU/dL (Up TO 0.2); pH 6.5 (5-8)
[2021-02-12 20:26] LABS: TSH (W/Ref FT4) 3.45 uIU/mL (0.36-3.74)
[2021-02-12 20:30] LABS: Bacteria Moderate HPF (Negative); C & S Indicated? Yes; Casts Negative LPF (Negative); Crystals Negative HPF (Negative); Epithelial Cells Few HPF (Negative); Mucus Negative (Negative); Other Cells Few Transitional (Negative); RBC 0-2 HPF (0-2); WBC 20-50 HPF (0-5)
[2021-02-12 20:58] LABS: Source Nasal/Nares
[2021-02-12 22:01] LABS: COVID-19 PCR Negative (Negative)
--- NOTE | 2021-02-12 22:29 | W.PM.HP.N ---
Date of service: 02/12/21 Time of Service: 22:29 Assessment and Plan Assessment and plan (1) Atrial fibrillation with rapid ventricular response: Status: Acute Assessment and plan: She will be continued on intravenous diltiazem and her apixaban will be continued also. She can be set up for cardiology consultation after discharge. History of Present Illness History of Present Illness Chief Complaint: palpitations sinus Narrative: This 85-year-old female presented to the hospital today with palpitations and hypotension. She said that she did not feel well yesterday and called her doctor's office and they told her to drink plenty of fluids and to call if she felt worse. She felt improved this morning she said she thought it would be a good day but about 4 PM today she went down from her fourth floor apartment to get the mail and did not feel bad at that time but about 6 PM she said her blood pressure dropped to 84/58. She then developed palpitations and she called 911 and came here. She said she was here in the hospital twice since September with similar problem. She has a history of intermittent atrial fibrillation. She wants to know if she should be able to take something that will keep this under control better than it has been. She said she is did see a heart doctor in the past but does not know their name. Review of Systems Constitutional Constitutional: Denies body ache(s), Denies chills, Denies fever(s) and Denies headache(s) ENT Ears, Nose, Mouth, and Throat: Denies headache(s) Cardiovascular Cardiovascular: Denies chest pain, Reports rapid heart rate, Denies leg edema and Denies dyspnea Respiratory Respiratory: Denies dyspnea and Denies wheezing Gastrointestinal Gastrointestinal: Denies change in bowel habits, Reports nausea and Denies vomiting Genitourinary Genitourinary: Reports urinary frequency and Reports difficulty voiding Musculoskeletal Musculoskeletal: Denies myalgias Neurologic Neurologic: Denies headache(s) Allergic/Immunologic Allergic/Immunologic: Denies wheezing [facility] [place] Medical History Acute anterior epistaxis Benign positional vertigo Compound nevus R clavicle Diplopia Diverticulitis s/p colectomy 11/1985 CAYDEN (generalized anxiety disorder) Hyperlipidemia Hypertension Kidney stones Lower leg edema Compression stockings Osteoporosis Dx'ed DEXA years ago--did take Calcitonin nasal spray for treatment (unknown length of time) Palpitations Syncope Surgical History History of laparotomy 11/1987 - per pt twisted gut and scar tissue. History of lumpectomy of left breast benign fibroadenoma 05/1962 Hx of appendectomy Hx of cataract surgery Hx of colectomy (~11/1985) 22 cm removed. r/t to diverticulitis. Hx of colonoscopy 03/15/19 Hx of hysterectomy secondary to fibroids S/P ZEINA-BSO Family History Mother , from CKD Chronic kidney disease Colon cancer Brother Colon cancer from colon cancer Heart disease Niece Substance abuse Crohn disease Sister Heart disease 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 or ride w/intox courier driver: No Water heater temp set <120 deg: Yes Working smoke detector in home: Yes Fire extinguisher in home: Yes Carbon monox detector in home: Yes Do you feel safe at home: Yes Do you feel safe in your relationship?: Yes Victim of physical abuse: No Victim of emotional abuse: No Victim of sexual abuse: No Would you like helpful sources: No History History 1 Para 1 Hx # Term Pregnancies 1 Multiple births Hx # Pregnancies Ectopic pregnancies AB induced Hx Number of Living Children AB spontaneous Meds Allergies and Home Medications Allergies Allergy/AdvReac Type Severity Reaction Status Date / Time cephalexin monohydrate Allergy Severe Cardiac Verified 02/12/21 20:48 [From Keflex] Dysrythmia Cephalosporins Allergy Severe Skin Rash Verified 02/12/21 20:48 Penicillins Allergy Severe Anaphylaxsi Verified 02/12/21 20:48 s meclizine Allergy Intermediate hyperactivi Verified 02/12/21 20:48 ty codeine Allergy Unknown unknown Verified 02/12/21 20:48 morphine Allergy Unknown unknown Verified 02/12/21 20:48 Sulfa (Sulfonamide Allergy Unknown unknown Verified 02/12/21 20:48 Antibiotics) sulfite Allergy Unknown unknown Verified 02/12/21 20:48 atenolol AdvReac Intermediate severe Verified 02/12/21 20:48 dizziness erythromycin base AdvReac Mild Nausea Verified 02/12/21 20:48 metoprolol AdvReac sleepless, Verified 02/12/21 20:48 agitated Home Medications Medication Instructions Recorded Confirmed Type TUMS 1 tab PO BID PRN 06/15/18 02/12/21 History thera tears eye drops 1 drp OU BID-TID 06/15/18 02/12/21 History cranberry extract 1 tab PO DAILY 11/23/18 02/12/21 History acetaminophen 325 mg tablet 325 mg PO PRN 03/07/19 02/12/21 History ondansetron HCl 4 mg tablet 4 mg PO Q8H PRN #30 tab 05/28/20 02/12/21 Rx probiotics 1 tab PO TID PRN 06/01/20 02/12/21 History apixaban 2.5 mg tablet 2.5 mg PO BID #180 tab 10/26/20 02/12/21 Rx diltiazem HCl 60 mg 60 mg PO BID #180 cap 10/26/20 02/12/21 Rx capsule,extended release 12 hr esthela.stocking,knee,reg,smal each 10/30/20 History omeprazole 20 mg capsule,delayed 20 mg PO DAILY #90 cap 11/23/20 02/12/21 Rx release Exam Const General: cooperative and no acute distress Nutritional Appearance: average body habitus and well nourished Orientation: alert and awake Neck Neck: normal visual inspection and no lymphadenopathy Thyroid: thyroid normal Resp Effort & Inspection: normal respiratory effort and able to speak in complete sentences Auscultation: clear to auscultation bilaterally, no rales and no rhonchi Cardio Jugular venous pressure: no JVD Rate: tachycardic Rhythm: abnormal rhythm Heart Sounds: S1 normal, S2 normal, no gallops and no murmurs GI Inspection: normal to inspection and non-distended Palpation: no hepatosplenomegaly and nontender Neuro Cranial Nerves: CN's II-XI intact bilaterally Extrem General: normal to inspection and no pedal edema Results Labs Result diagrams: 02/12/21 19:20 02/12/21 19:20 Labs: Laboratory Results - last 24 hr 02/12/21 02/12/21 02/12/21 19:20 19:20 19:20 WBC 8.79 RBC 4.47 Hgb 13.0 Hct 39.1 MCV 87.5 MCH 29.1 MCHC 33.2 RDW 13.3 Plt Count 380 MPV 9.4 Immature Gran % 0.2 Neutrophils % 67.2 Lymphocytes % 22.0 Monocytes % 8.9 Eosinophils % 0.9 Basophils % 0.8 Nucleated RBC % 0 Absolute Neutrophils 5.91 Absolute Lymphocytes 1.93 Absolute Monocytes 0.78 Absolute Eosinophils 0.08 Absolute Basophils 0.07 Sodium 140 Potassium 3.4 L Chloride 104 Carbon Dioxide 23.6 Anion Gap 12.4 H BUN 16 Creatinine 1.1 H Estimated GFR/1.73 m2 47.43 Glucose 135 H Calcium 8.8 Magnesium 2.0 Total Bilirubin 0.4 AST 21 ALT 15 Alkaline Phosphatase 126 H Troponin I < 0.05 Total Protein 7.6 Albumin 3.7 TSH 3.45 Urine Color Urine Clarity Urine pH Ur Specific [place] Urine Protein Urine Ketones Urine Blood Urine Nitrite Urine Bilirubin Urine Urobilinogen Ur Leukocyte Esterase Urine RBC Urine WBC Ur Epithelial Cells Urine Crystals Urine Bacteria Urine Casts Urine Mucus Urine Other Ur Culture Indicated? Urine Glucose COVID-19 Source SARS-CoV-2 (PCR) 02/12/21 02/12/21 19:30 20:55 WBC RBC Hgb Hct MCV MCH MCHC RDW Plt Count MPV Immature Gran % Neutrophils % Lymphocytes % Monocytes % Eosinophils % Basophils % Nucleated RBC % Absolute Neutrophils Absolute Lymphocytes Absolute Monocytes Absolute Eosinophils Absolute Basophils Sodium Potassium Chloride Carbon Dioxide Anion Gap BUN Creatinine Estimated GFR/1.73 m2 Glucose Calcium Magnesium Total Bilirubin AST ALT Alkaline Phosphatase Troponin I Total Protein Albumin TSH Urine Color Yellow Urine Clarity Clear Urine pH 6.5 Ur Specific [place] 1.010 Urine Protein Negative Urine Ketones Negative Urine Blood Trace-lysed H Urine Nitrite Negative Urine Bilirubin Negative Urine Urobilinogen 0.2 Ur Leukocyte Esterase Moderate H Urine RBC 0-2 Urine WBC 20-50 H Ur Epithelial Cells Few Urine Crystals Negative Urine Bacteria Moderate Urine Casts Negative Urine Mucus Negative Urine Other Few Transitional Ur Culture Indicated? Yes Urine Glucose Negative COVID-19 Source Nasal/Nares SARS-CoV-2 (PCR) Negative Last Vital Signs Temp 36.5 C 02/12/21 19:05 Pulse 88 02/12/21 20:45 Resp 22 02/12/21 20:45 BP 126/65 02/12/21 20:45 Pulse Ox 96 02/12/21 20:45
[2021-02-12 22:37] LABS: Troponin I < 0.05 ng/mL (<0.06)
[2021-02-13] VITALS (93 sets, daily range): BP systolic 106–151; BP diastolic 46–65; PULSE 57–98; RESP 10–31; TEMP 36; O2SAT 90–98
[2021-02-13 07:20] LABS: Abs Immature Grans 0.01 10^3/uL (0.0-0.06); Absolute Basophil Count 0.05 10^3/uL (0.0-0.2); Absolute Eosinophil Count 0.04 10^3/uL (0.0-0.7); Absolute Lymphocyte Count 1.15 10^3/uL (1.2-3.4); Absolute Monocyte Count 0.58 10^3/uL (0.1-0.8); Absolute Neutrophil Count 5.04 10^3/uL (1.2-6.7); Basophils % 0.7; Eosinophils % 0.6; HCT 38.1 % (36.0-46.0); HGB 12.7 g/dL (11.2-15.7); Immature Grans % 0.1; Lymphocytes % 16.7; MCHC 33.3 % (32.0-36.0); MPV 9.3 fL (8.0-11.0); Monocytes % 8.4; Neutrophils % 73.5; Nucleated RBC 0 %; Platelet Count 355 10^3/uL (130-400); RBC 4.38 10^6/uL (3.93-5.22); RDW 13.3 % (11.7-14.6); RDW-SD 42.7 fL; WBC 6.87 10^3/uL (4.4-10.8)
[2021-02-13 07:33] LABS: BUN 10 mg/dL (7-18); CREATININE 0.9 mg/dL (0.55-1.02); Calcium 8.8 mg/dL (8.5-10.1); Chloride 108 mmol/L (98-107); Glucose 93 mg/dL (74-106); Potassium 3.9 mmol/L (3.5-5.1); Sodium 143 mmol/L (136-145)
--- NOTE | 2021-02-13 08:17 | W.PM.PROGNOT ---
Subjective Subjective Interval history since last seen: Converted to NSR. Left on diltiazem gtt overnight, off since 6 am, remains in NSR. Objective Last Vital Signs Temp 36 C L 02/13/21 05:19 Pulse 71 02/13/21 05:19 Resp 18 02/13/21 07:00 BP 131/54 L 02/13/21 05:19 Pulse Ox 94 02/13/21 07:00 Laboratory Results - last 24 hr 02/12/21 02/12/21 02/12/21 19:20 19:20 19:20 WBC 8.79 RBC 4.47 Hgb 13.0 Hct 39.1 MCV 87.5 MCH 29.1 MCHC 33.2 RDW 13.3 Plt Count 380 MPV 9.4 Immature Gran % 0.2 Neutrophils % 67.2 Lymphocytes % 22.0 Monocytes % 8.9 Eosinophils % 0.9 Basophils % 0.8 Nucleated RBC % 0 Absolute Neutrophils 5.91 Absolute Lymphocytes 1.93 Absolute Monocytes 0.78 Absolute Eosinophils 0.08 Absolute Basophils 0.07 Sodium 140 Potassium 3.4 L Chloride 104 Carbon Dioxide 23.6 Anion Gap 12.4 H BUN 16 Creatinine 1.1 H Estimated GFR/1.73 m2 47.43 Glucose 135 H Calcium 8.8 Magnesium 2.0 Total Bilirubin 0.4 AST 21 ALT 15 Alkaline Phosphatase 126 H Troponin I < 0.05 Total Protein 7.6 Albumin 3.7 TSH 3.45 Urine Color Urine Clarity Urine pH Ur Specific [place] Urine Protein Urine Ketones Urine Blood Urine Nitrite Urine Bilirubin Urine Urobilinogen Ur Leukocyte Esterase Urine RBC Urine WBC Ur Epithelial Cells Urine Crystals Urine Bacteria Urine Casts Urine Mucus Urine Other Ur Culture Indicated? Urine Glucose COVID-19 Source SARS-CoV-2 (PCR) 02/12/21 02/12/21 02/12/21 19:30 20:55 22:15 WBC RBC Hgb Hct MCV MCH MCHC RDW Plt Count MPV Immature Gran % Neutrophils % Lymphocytes % Monocytes % Eosinophils % Basophils % Nucleated RBC % Absolute Neutrophils Absolute Lymphocytes Absolute Monocytes Absolute Eosinophils Absolute Basophils Sodium Potassium Chloride Carbon Dioxide Anion Gap BUN Creatinine Estimated GFR/1.73 m2 Glucose Calcium Magnesium Total Bilirubin AST ALT Alkaline Phosphatase Troponin I < 0.05 Total Protein Albumin TSH Urine Color Yellow Urine Clarity Clear Urine pH 6.5 Ur Specific [place] 1.010 Urine Protein Negative Urine Ketones Negative Urine Blood Trace-lysed H Urine Nitrite Negative Urine Bilirubin Negative Urine Urobilinogen 0.2 Ur Leukocyte Esterase Moderate H Urine RBC 0-2 Urine WBC 20-50 H Ur Epithelial Cells Few Urine Crystals Negative Urine Bacteria Moderate Urine Casts Negative Urine Mucus Negative Urine Other Few Transitional Ur Culture Indicated? Yes Urine Glucose Negative COVID-19 Source Nasal/Nares SARS-CoV-2 (PCR) Negative 02/13/21 02/13/21 06:08 06:08 WBC 6.87 RBC 4.38 Hgb 12.7 Hct 38.1 MCV 87.0 MCH 29.0 MCHC 33.3 RDW 13.3 Plt Count 355 MPV 9.3 Immature Gran % 0.1 Neutrophils % 73.5 Lymphocytes % 16.7 Monocytes % 8.4 Eosinophils % 0.6 Basophils % 0.7 Nucleated RBC % 0 Absolute Neutrophils 5.04 Absolute Lymphocytes 1.15 L Absolute Monocytes 0.58 Absolute Eosinophils 0.04 Absolute Basophils 0.05 Sodium 143 Potassium 3.9 Chloride 108 H Carbon Dioxide 27.0 Anion Gap 8.0 BUN 10 D Creatinine 0.9 Estimated GFR/1.73 m2 59.80 Glucose 93 Calcium 8.8 Magnesium Total Bilirubin AST ALT Alkaline Phosphatase Troponin I Total Protein Albumin TSH Urine Color Urine Clarity Urine pH Ur Specific [place] Urine Protein Urine Ketones Urine Blood Urine Nitrite Urine Bilirubin Urine Urobilinogen Ur Leukocyte Esterase Urine RBC Urine WBC Ur Epithelial Cells Urine Crystals Urine Bacteria Urine Casts Urine Mucus Urine Other Ur Culture Indicated? Urine Glucose COVID-19 Source SARS-CoV-2 (PCR)
[2021-02-13] MEDS: Apixaban 2.5 MG TAB PO (10:03)
[2021-02-13] MEDS: Omeprazole 20 MG CAPCR PO (10:03)
[2021-02-13] MEDS: dilTIAZem 60 MG TAB PO ×2 (10:03→14:20)
[2021-02-13] MEDS: Refresh PLUS Eye Drops 0.4ml OU ×2 (10:04→14:20)
--- NOTE | 2021-02-13 14:26 | DSE_ITS ---
Date of service: 02/13/21 Time of Service: 14:27 DS: Diagnosis Discharge Diagnosis (1) Atrial fibrillation with rapid ventricular response: Status: Acute (2) Noncompliance with medication regimen: Status: Acute (3) Asymptomatic bacteriuria: Status: Acute (4) Hypertension: Status: Chronic (5) Hyperlipidemia: Status: Chronic (6) COVID-19 ruled out by laboratory testing: Status: Ruled-out Discharge Plan Disposition Patient Disposition: HOME Condition: Improving Discharge Details Reason For Visit: ATRIAL FIBRILLATION WITH RAPID VENTRICULAR RESPONS Admit Date/Time: 02/12/21 22:10 Admit Provider: Umberto Ramirez Attending Provider: Umberto Ramirez Primary Care Provider: Caroline Yoon Hospital Course Hospital Course: Ms Connell is an 85 year old female with PMHx of paroxysmal Afib on diltiazem and eliquis, evidently not always compliant with taking the full dose of diltiazem, who also has a h/o hypertension, hyperlipidemia, and CAYDEN, who was observed in [facility] ICU under the hospitalist service from 02/12/21 unitl 02/13/21 after presenting in rapid Afib requiring cardizem drip. She converted back to NSR and admitted to nursing that she has only been taking half-doses of her cardizem sometimes. Given this, her outpatient prescription for cardizem is not changing - it will continue being 60 mg BID; however, a prn dose of cardizem is being ordered for palpitations and the patient is getting discharged home on a cardiac event recorder. She ruled out for ACS. She is medically stable for discharge home today. Care for patient as well as completion of her discharge summary took 45 minutes. Home Meds and New Rx's Prescriptions: New diltiazem HCl [Cardizem] 60 mg Tablet 60 mg PO DAILY PRN PRN (Reason: palpitations) Qty: 10 RF: 0 Continued cranberry extract 1 tab PO DAILY RF: 0 (DME) esthela.stocking,knee,reg,smal Misc See Rx Instructions .ROUTE .MEDSUPPLY RF: 0 TUMS 1 tab PO BID PRNRF: 0 thera tears eye drops 1 drp OU BID-TID RF: 0 acetaminophen [Tylenol] 325 mg tablet 325 mg PO PRN RF: 0 probiotics 1 tab PO TID PRNRF: 0 ondansetron HCl [Zofran] 4 mg tablet 4 mg PO Q8H PRN (Reason: nausea and vomiting) Qty: 30 RF: 0 Eliquis 2.5 mg tablet 2.5 mg PO BID Qty: 180 RF: 3 diltiazem HCl 60 mg capsule,extended release 12 hr 60 mg PO BID Qty: 180 RF: 3 Hold Instructions: Home Medication placed on hold at Doctor's office omeprazole 20 mg capsule,delayed release(DR/EC) 20 mg PO DAILY Qty: 90 RF: 3 Discharge Instructions Instructions: Diltiazem (By mouth), A-fib (Atrial Fibrillation) (DC) Additional Instructions: Take your medications as prescribed - not half dose. If you feel palpitations like your Afib, you should take 60 mg of cardizem. If this does not help within 1-2 hours, you should go to the nearest ED. Return to the hospital with any fever, bleeding, chest pain, shortness of breath. Referrals: Caroline Yoon [employer] [Primary Care Provider] - Activity:: Activity as Tolerated Equipment/Supplies:: cardiac event recorder Diet:: Low Sodium Discharge Orders Discharge Orders: Discharge Order (Routine); Ordered 02/13/21 Ordered By: Sharon Nieves Other Ambulatory Orders: Cardiac Event Recorder (Routine) Timeframe: 1 Day Facility: [facility] - Location: Respiratory Therapy Ordered By: Sharon Nieves DS: Summary Time Spent with Patient providing and/or coordinating discharge services: Greater than 30 minutes Status at Discharge Functional status at discharge: independent ambulation Overall status at discharge: patient is back to baseline Mental Status: mental status grossly normal Speech and Movement: speech and movement normal Mood: congruent mood Affect: anxious affect Exam Narrative Exam Narrative: General: pleasant, anxious appearing elderly female, A&Ox3, no acute distress HEENT: EOMI, MMM Heart: RRR, slight [place] Lungs: CTAB Abdomen: soft, nontender, nondistended Extremities: 2+ BLE edema, symmetric Psych Mental Status: mental status grossly normal Speech and Movement: speech and movement normal Mood: congruent mood Affect: anxious affect DS: Data Vitals/I&O Vitals and I&O: Vital Signs Temperature 36 C L 02/13/21 10:09 Temperature Source Temporal Artery Scan 02/13/21 10:09 Pulse 71 02/13/21 10:09 Pulse 80 02/13/21 10:10 Respiratory Rate 11 L 02/13/21 10:10 Respiratory Effort Non-Labored 02/13/21 10:09 Respiratory Depth Normal 02/13/21 10:09 Respiratory Pattern Normal 02/13/21 10:09 Blood Pressure 131/54 L 02/13/21 05:19 Blood Pressure Mean 79 02/13/21 05:19 Blood Pressure Position Supine 02/13/21 10:09 Pulse Oximetry 97 02/13/21 10:10 Oxygen Delivery Method Room Air 02/13/21 10:09 Oxygen Flow Rate 0 02/13/21 10:09 Pain Level 0 02/13/21 10:09 Intake & Output 02/12/21 02/13/21 02/13/21 23:59 11:59 23:59 Intake Total 1016.167 / 1016.167 290.166 / 490.166 200 / 490.166 Output Total 500 / 500 Balance 1016.167 / 1016.167 -209.834 / -9.834 200 / -9.834 Weight 63.4 kg 62.7 kg Intake: IV 1016.167 / 1016.167 110.166 / 110.166 Oral 180 / 380 200 / 380 Output: Urine 500 / 500 Other: Urine Color Pale Urine Appearance Clear Urine Odor Normal Voiding Methods Bedside Commode Data Completed and Pending Completed studies during hospitalization [Text1]: CXR; No evidence of acute process. Labs on day of discharge: Labs from last 24 hours 02/13/21 02/13/21 02/12/21 06:08 06:08 22:15 WBC 6.87 RBC 4.38 Hgb 12.7 Hct 38.1 MCV 87.0 MCH 29.0 MCHC 33.3 RDW 13.3 Plt Count 355 MPV 9.3 Immature Gran % 0.1 Neutrophils % 73.5 Lymphocytes % 16.7 Monocytes % 8.4 Eosinophils % 0.6 Basophils % 0.7 Nucleated RBC % 0 Absolute Neutrophils 5.04 Absolute Lymphocytes 1.15 L Absolute Monocytes 0.58 Absolute Eosinophils 0.04 Absolute Basophils 0.05 Sodium 143 Potassium 3.9 Chloride 108 H Carbon Dioxide 27.0 Anion Gap 8.0 BUN 10 D Creatinine 0.9 Estimated GFR/1.73 m2 59.80 Glucose 93 Calcium 8.8 Magnesium Total Bilirubin AST ALT Alkaline Phosphatase Troponin I < 0.05 Total Protein Albumin TSH Urine Color Urine Clarity Urine pH Ur Specific [place] Urine Protein Urine Ketones Urine Blood Urine Nitrite Urine Bilirubin Urine Urobilinogen Ur Leukocyte Esterase Urine RBC Urine WBC Ur Epithelial Cells Urine Crystals Urine Bacteria Urine Casts Urine Mucus Urine Other Ur Culture Indicated? Urine Glucose COVID-19 Source SARS-CoV-2 (PCR) 02/12/21 02/12/21 02/12/21 20:55 19:30 19:20 WBC 8.79 RBC 4.47 Hgb 13.0 Hct 39.1 MCV 87.5 MCH 29.1 MCHC 33.2 RDW 13.3 Plt Count 380 MPV 9.4 Immature Gran % 0.2 Neutrophils % 67.2 Lymphocytes % 22.0 Monocytes % 8.9 Eosinophils % 0.9 Basophils % 0.8 Nucleated RBC % 0 Absolute Neutrophils 5.91 Absolute Lymphocytes 1.93 Absolute Monocytes 0.78 Absolute Eosinophils 0.08 Absolute Basophils 0.07 Sodium Potassium Chloride Carbon Dioxide Anion Gap BUN Creatinine Estimated GFR/1.73 m2 Glucose Calcium Magnesium Total Bilirubin AST ALT Alkaline Phosphatase Troponin I Total Protein Albumin TSH Urine Color Yellow Urine Clarity Clear Urine pH 6.5 Ur Specific [place] 1.010 Urine Protein Negative Urine Ketones Negative Urine Blood Trace-lysed H Urine Nitrite Negative Urine Bilirubin Negative Urine Urobilinogen 0.2 Ur Leukocyte Esterase Moderate H Urine RBC 0-2 Urine WBC 20-50 H Ur Epithelial Cells Few Urine Crystals Negative Urine Bacteria Moderate Urine Casts Negative Urine Mucus Negative Urine Other Few Transitional Ur Culture Indicated? Yes Urine Glucose Negative COVID-19 Source Nasal/Nares SARS-CoV-2 (PCR) Negative 02/12/21 02/12/21 19:20 19:20 WBC RBC Hgb Hct MCV MCH MCHC RDW Plt Count MPV Immature Gran % Neutrophils % Lymphocytes % Monocytes % Eosinophils % Basophils % Nucleated RBC % Absolute Neutrophils Absolute Lymphocytes Absolute Monocytes Absolute Eosinophils Absolute Basophils Sodium 140 Potassium 3.4 L Chloride 104 Carbon Dioxide 23.6 Anion Gap 12.4 H BUN 16 Creatinine 1.1 H Estimated GFR/1.73 m2 47.43 Glucose 135 H Calcium 8.8 Magnesium 2.0 Total Bilirubin 0.4 AST 21 ALT 15 Alkaline Phosphatase 126 H Troponin I < 0.05 Total Protein 7.6 Albumin 3.7 TSH 3.45 Urine Color Urine Clarity Urine pH Ur Specific [place] Urine Protein Urine Ketones Urine Blood Urine Nitrite Urine Bilirubin Urine Urobilinogen Ur Leukocyte Esterase Urine RBC Urine WBC Ur Epithelial Cells Urine Crystals Urine Bacteria Urine Casts Urine Mucus Urine Other Ur Culture Indicated? Urine Glucose COVID-19 Source SARS-CoV-2 (PCR) 02/12/21 19:30 Urine - Reflex from Ua Urine Culture - Pending Preliminary micro results at discharge 02/12/21 19:30 Urine Culture - Pending Urine - Reflex from Ua [facility] Medical History Acute anterior epistaxis Benign positional vertigo Compound nevus R clavicle Diplopia Diverticulitis s/p colectomy 11/1985 CAYDEN (generalized anxiety disorder) Hyperlipidemia Hypertension Kidney stones Lower leg edema Compression stockings Osteoporosis Dx'ed DEXA years ago--did take Calcitonin nasal spray for treatment (unknown length of time) Palpitations Syncope Surgical History History of laparotomy 11/1987 - per pt twisted gut and scar tissue. History of lumpectomy of left breast benign fibroadenoma 05/1962 Hx of appendectomy Hx of cataract surgery Hx of colectomy (~11/1985) 22 cm removed. r/t to diverticulitis. Hx of colonoscopy 03/15/19 Hx of hysterectomy secondary to fibroids S/P ZEINA-BSO Family History Mother , from CKD Chronic kidney disease Colon cancer Brother Colon cancer from colon cancer Heart disease Niece Substance abuse Crohn disease Sister Heart disease 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 or ride w/intox 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
--- NOTE | 2021-02-13 16:44 | NUR.NOTE ---
Nursing Note: PT CALLS AFTER DC HOME TO REPORT SHE DID NOT TELL NURSING SHE WAS ONLY TAKING HALF TABS OF HER MEDS. SHE STATES SHE TOOK ALL HER MEDS PRESCRIBED. THE RN ASSURED PT THAT A NOTE WOULD BE ENTERED TO STATE HER CORRECTION TO OUR RECORDS
--- NOTE | 2021-03-16 15:35 | W.CARDEVENT ---
Date of service: 03/16/21 Time of Service: 15:35 Cardiac Event Recorder Referring Provider:: Caroline Yoon Indications:: Paroxysmal atrial fibrillation Cardiac Event Note: This is a 30-day cardiac event monitor ordered for paroxysmal atrial fibrillation. Predominant rhythm was sinus. Average heart rate overall was 77/min. Minimum heart rate was 55, maximum 112 while in sinus rhythm Patient had episodes of atrial fibrillation occurring on February 15, February 25, March 01 and March 09 and March 14. Average heart rate while in atrial fibrillation was 125, though ventricular rate of 90 was also noted while in atrial fibrillation Patient symptoms occurred both with sinus rhythm and atrial fibrillation There was no high-grade AV block or pauses greater than 3 seconds
== END 2021-02-13 15:45 | disposition home or self-care (01) ==
LOC: ER 22:36 → ICU 02-13 03:47
PROVIDERS: Admitting Provider Family Medicine; Emergency Provider Emergency Medicine; PCP Nurse Practitioner Adult Health; Visit Provider Family Medicine
DX: I48.91 Unspecified atrial fibrillation (principal); Z91.14 Patient's other noncompliance with medication regimen; I10 Essential (primary) hypertension; E78.5 Hyperlipidemia, unspecified; Z20.822 Contact with and (suspected) exposure to COVID-19; F41.1 Generalized anxiety disorder; R82.71 Bacteriuria
CPT/HCPCS: 36415; 80048; 80053; 87635; 93005; 93270; 96361; 96365; 96366; 96375; 99285; 71045; 81003; 81015; 83735; 84443; 84484; 85025; 87086; 93010; 99217; 99219; 99284; G0378

== ENCOUNTER 2021-02-25 17:06 | Emergency (ER) | payer MEDICARE, OTHER, SELFPAY ==
[2021-02-25] VITALS (50 sets, daily range): BP systolic 116–156; BP diastolic 59–98; PULSE 66–151; RESP 11–26; TEMP 36.6–36.8; O2SAT 95–98
--- NOTE | 2021-02-25 17:00 | RT.EKG_ITS ---
APPROVED REPORT Exam: Resting ECG Reason for Exam: rapid heart rate Patient Location: E HR:80 bpm ECG Measurements Heart Rate 80 AXIS AL [id number] P [id number] QRSd 74 QRS -23 QT 364 T 23 QTc 446 Conclusion Atrial flutter with predominant 4:1 AV block...A-rate 319, multiple Ps
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
[2021-02-25] MEDS: Normal Saline 1,000 ML 150 ML IV (17:40)
[2021-02-25 17:43] LABS: Abs Immature Grans 0.02 10^3/uL (0.0-0.06); Absolute Basophil Count 0.08 10^3/uL (0.0-0.2); Absolute Eosinophil Count 0.05 10^3/uL (0.0-0.7); Absolute Monocyte Count 0.62 10^3/uL (0.1-0.8); Absolute Neutrophil Count 5.45 10^3/uL (1.2-6.7); Eosinophils % 0.6; HGB 13.3 g/dL (11.2-15.7); Immature Grans % 0.3; Lymphocytes % 19.4; MCH 29.1 pg (27.0-33.0); MCHC 33.3 % (32.0-36.0); MCV 87.5 fL (80-95); MPV 10.1 fL (8.0-11.0); Neutrophils % 70.7; Nucleated RBC 0 %; Platelet Count 308 10^3/uL (130-400); RBC 4.57 10^6/uL (3.93-5.22); RDW 13.3 % (11.7-14.6); RDW-SD 42.6 fL; WBC 7.72 10^3/uL (4.4-10.8)
--- NOTE | 2021-02-25 18:00 | RT.EKG_ITS ---
APPROVED REPORT Exam: Resting ECG Reason for Exam: rapid heart rate Patient Location: E HR:145 bpm ECG Measurements Heart Rate 145 AXIS CA [id number] P [id number] QRSd 73 QRS -29 QT 290 T 39 QTc 451 Conclusion Atrial fibrillation with rapid V-rate...A-rate 319
[2021-02-25 18:09] LABS: ALT 15 U/L (14-59); AST 18 U/L (15-37); Albumin 3.6 g/dL (3.4-5.0); Alkaline Phosphatase 124 U/L (46-116); Anion Gap 10.3 mmol/L (3-11); BUN 15 mg/dL (7-18); Bilirubin, Total 0.2 mg/dL (0.2-1.0); CO2 25.7 mmol/L (21.0-32.0); CREATININE 1.1 mg/dL (0.55-1.02); Calcium 8.5 mg/dL (8.5-10.1); Chloride 102 mmol/L (98-107); Estimated GFR 47.43 (mL/min/1.73m2); Glucose 122 mg/dL (74-106); Potassium 3.6 mmol/L (3.5-5.1); Sodium 138 mmol/L (136-145); Total Protein 7.5 g/dL (6.4-8.2); Troponin I < 0.05 ng/mL (<0.06)
[2021-02-25] MEDS: dilTIAZem 25 MG/5 ML VIAL 10 MG IVP (18:24)
[2021-02-25] MEDS: dilTIAZem 30 MG TAB (19:01)
[2021-02-25 20:57] LABS: Troponin I < 0.05 ng/mL (<0.06)
[2021-02-25] MEDS: Apixaban 2.5 MG TAB PO (21:11)
--- NOTE | 2021-02-25 23:43 | NUR.NOTE ---
Referral faxed to [facility] Cardiology to f/u in 1-2 weeks for A-Fib.Nursing Note:
== END 2021-02-25 21:54 | disposition home or self-care (01) ==
LOC: ER 21:08
PROVIDERS: Emergency Provider Registered Nurse Emergency; PCP Nurse Practitioner Adult Health
DX: R00.2 Palpitations (principal); I48.91 Unspecified atrial fibrillation; Z79.01 Long term (current) use of anticoagulants
CPT/HCPCS: 36415; 80053; 93005; 96361; 96374; 99284; 83735; 84484; 85025; 93010; 99285

== ENCOUNTER → 2021-03-16 10:15 | Outpatient (BNVA) | payer MEDICARE, OTHER, SELFPAY | PROVIDERS: PCP Nurse Practitioner Adult Health; Referring Provider Nurse Practitioner Adult Health; Visit Provider Internal Medicine Cardiovascular Disease | DX: I48.0 Paroxysmal atrial fibrillation (principal); I10 Essential (primary) hypertension; F41.1 Generalized anxiety disorder; Z79.01 Long term (current) use of anticoagulants | CPT/HCPCS: 99214; 99213 ==

== ENCOUNTER 2021-03-16 15:35 | Outpatient (CLI) | payer MEDICARE, OTHER, SELFPAY | END 2021-03-16 15:36 | LOC: CARDO 03-18 11:19 | PROVIDERS: PCP Nurse Practitioner Adult Health; Referring Provider Internal Medicine; Visit Provider Internal Medicine Cardiovascular Disease | DX: I48.0 Paroxysmal atrial fibrillation (principal) | CPT/HCPCS: 93272; 99213 ==

== ENCOUNTER 2021-08-31 07:10 | Emergency (ER) | payer MEDICARE, SELFPAY ==
[2021-08-31] VITALS (24 sets, daily range): BP systolic 107–151; BP diastolic 56–108; PULSE 48–136; RESP 13–28; TEMP 36.8; O2SAT 92–97
--- NOTE | 2021-08-31 07:00 | RT.EKG_ITS ---
APPROVED REPORT Exam: Resting ECG Reason for Exam: rapid heart rate Patient Location: E HR:121 bpm ECG Measurements Heart Rate 121 AXIS AL [id number] P [id number] QRSd 75 QRS -24 QT 329 T 18 QTc 468 Conclusion Atrial fibrillation...? atrial activity Consider anterior infarct...Q >30mS in V2-V5 Physician: Rate 121, A. fib, intervals stable. No significant ST elevation or depression. No STEMI.
--- NOTE | 2021-08-31 07:15 | DI.RAD_ITS ---
Exam(s) XR PORTABLE CHEST AP EXAM: XR PORTABLE CHEST AP CLINICAL HISTORY: chest pain TECHNIQUE: COMPARISON: CR,XR XR CHEST 2V PA LATERAL from 09/22/2020 CR,XR XR PORTABLE CHEST AP from 02/12/2021 FINDINGS: Portable AP chest at 0805 hours. Heart is at the upper limits of normal in size. There is a retroca rdiac hiatus hernia. Bilateral areas of pulmonary scarring noted. No acute consolidation. No pleur al effusion on this frontal film. IMPRESSION: No evidence of acute process. RADIATION DOSE DELIVERED: Total DLP
[2021-08-31] MEDS: Normal Saline 500 ML IV (07:29)
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
[2021-08-31 07:41] LABS: Abs Immature Grans 0.02 10^3/uL (0.0-0.06); Absolute Basophil Count 0.07 10^3/uL (0.0-0.2); Absolute Eosinophil Count 0.04 10^3/uL (0.0-0.7); Absolute Lymphocyte Count 1.16 10^3/uL (1.2-3.4); Absolute Monocyte Count 0.48 10^3/uL (0.1-0.8); Absolute Neutrophil Count 4.89 10^3/uL (1.2-6.7); Basophils % 1.1; Eosinophils % 0.6; HCT 40.8 % (36.0-46.0); HGB 13.3 g/dL (11.2-15.7); Immature Grans % 0.3; Lymphocytes % 17.4; MCH 28.7 pg (27.0-33.0); MCHC 32.6 % (32.0-36.0); MCV 87.9 fL (80-95); MPV 8.9 fL (8.0-11.0); Monocytes % 7.2; Neutrophils % 73.4; Nucleated RBC 0 %; Platelet Count 391 10^3/uL (130-400); RBC 4.64 10^6/uL (3.93-5.22); RDW-SD 45.3 fL; WBC 6.66 10^3/uL (4.4-10.8)
[2021-08-31 07:59] LABS: PTT Activated 24.7 sec (21.0-27.5); Prothrombin Time 10.4 sec (9.3-11.0)
[2021-08-31 08:19] LABS: ALT 13 U/L (14-59); AST 17 U/L (15-37); Albumin 3.4 g/dL (3.4-5.0); Alkaline Phosphatase 129 U/L (46-116); Anion Gap 12.6 mmol/L (3-11); BUN 19 mg/dL (7-18); Bilirubin, Total 0.5 mg/dL (0.2-1.0); CO2 24.4 mmol/L (21.0-32.0); CREATININE 1.2 mg/dL (0.55-1.02); Calcium 8.4 mg/dL (8.5-10.1); Chloride 106 mmol/L (98-107); Glucose 116 mg/dL (74-106); NT-proBNP 3499 pg/mL (<300); Potassium 3.7 mmol/L (3.5-5.1); Sodium 143 mmol/L (136-145); Total Protein 7.3 g/dL (6.4-8.2); Troponin I < 50 ng/L (<or=60)
== END 2021-08-31 10:27 | disposition home or self-care (01) ==
PROVIDERS: Student in an Organized Health Care Education/Training Program; Emergency Provider Emergency Medicine; PCP Nurse Practitioner Adult Health
DX: I48.91 Unspecified atrial fibrillation (principal); R07.9 Chest pain, unspecified; R42 Dizziness and giddiness
CPT/HCPCS: 36415; 80053; 93005; 96360; 96361; 99284; 71045; 83880; 84443; 84484; 85025; 85610; 85730; 93010; 99283

== ENCOUNTER 2021-09-10 09:10 | Outpatient (CLI) | payer MEDICARE, SELFPAY | END 2021-09-10 09:11 | disposition home or self-care (01) | LOC: DI.CARD 09:11 | PROVIDERS: PCP Nurse Practitioner Adult Health; Visit Provider Internal Medicine Cardiovascular Disease | DX: R69 Illness, unspecified (principal) | CPT/HCPCS: 93010 ==

== ENCOUNTER 2021-09-17 03:09 | Outpatient (CLI) | payer MEDICARE, SELFPAY ==
--- NOTE | 2021-09-17 10:00 | DI.DEXA_ITS ---
Exam(s) XR DEXA BONE DENSITY W/WO RADHA EXAM: XR DEXA BONE DENSITY W/WO RADHA CLINICAL HISTORY: reassess bones; h/o osteoporosis, on calcitonin,m81.0 TECHNIQUE: Routine DEXA evaluation of the lumbar spine, hip, or forearm. COMPARISON: No exams were available for comparison FINDINGS: Performed on a Hologic unit. Lateral image: No compression fracture evident. Lumbar Spine total T-score: -4.4. This is well within the osteoporosis range. Hip total T-score:-2.9. This is within the osteoporosis range Independent reading at the level of the femoral neck yields at T-score of -3.6.This is also within th e osteoporosis range Forearm total T-score: -4.9. This is also within the osteoporosis range. IMPRESSION: Bone mineral density measures in the osteoporosis range. Fracture risk is high. Note: Any spine fracture indicates 5x risk for subsequent spine fracture and 2x risk for subsequent h ip fracture. World Health Organization criteria for BMD interpretation classify patients: Normal...... T- Score at or above -1.0 Osteopenic... T- Score between -1.0 and -2.5 Osteoporosis... T-Score at or below -2.5
== END 2021-09-17 03:29 ==
PROVIDERS: PCP Nurse Practitioner Adult Health; Visit Provider Nurse Practitioner Adult Health
DX: Z13.820 Encounter for screening for osteoporosis (principal); M81.0 Age-related osteoporosis without current pathological fracture
CPT/HCPCS: 77080

== ENCOUNTER → 2021-10-04 12:49 | Outpatient (BNVA) | payer MEDICARE, SELFPAY | PROVIDERS: PCP Nurse Practitioner Adult Health; Visit Provider Internal Medicine Cardiovascular Disease | DX: I48.0 Paroxysmal atrial fibrillation (principal); I10 Essential (primary) hypertension | CPT/HCPCS: 99213 ==

== ENCOUNTER 2021-11-10 01:33 | Outpatient (CLI) | payer MEDICARE, SELFPAY ==
[2021-11-10 11:05] LABS: PHOSPHORUS 3.2 mg/dL (2.6-4.7); TSH (W/Ref FT4) 3.59 uIU/mL (0.36-3.74)
[2021-11-11 02:07] LABS: Vitamin D 25 Total < 5 ng/mL (30-100)
[2021-11-11 10:46] LABS: Parathyroid Hormone,Intact 188 pg/mL (19-88)
== END 2021-11-10 01:34 | disposition home or self-care (01) ==
LOC: LBO 01:33
PROVIDERS: PCP Nurse Practitioner Adult Health; Visit Provider Nurse Practitioner Adult Health
DX: M81.0 Age-related osteoporosis without current pathological fracture (principal); R60.0 Localized edema; E55.9 Vitamin D deficiency, unspecified; I10 Essential (primary) hypertension
CPT/HCPCS: 36415; 82306; 83970; 84100; 84443

== ENCOUNTER 2022-01-11 03:06 | Outpatient (CLI) | payer MEDICARE, SELFPAY ==
[2022-01-11 11:06] LABS: Anion Gap 8.4 mmol/L (3-11); BUN 21 mg/dL (7-18); CO2 28.6 mmol/L (21.0-32.0); CREATININE 1.1 mg/dL (0.55-1.02); Calcium 8.7 mg/dL (8.5-10.1); Chloride 102 mmol/L (98-107); Estimated GFR 47.32 (mL/min/1.73m2); Glucose 109 mg/dL (74-106); Potassium 3.6 mmol/L (3.5-5.1); Sodium 139 mmol/L (136-145)
[2022-01-11 18:40] LABS: Parathyroid Hormone,Intact 65 pg/mL (19-88)
[2022-01-13 05:04] LABS: Vitamin D 25 Total 32.9 ng/mL (30-100)
== END 2022-01-11 03:07 | disposition home or self-care (01) ==
LOC: LBO 03:06
PROVIDERS: PCP Nurse Practitioner Adult Health; Visit Provider Nurse Practitioner Adult Health
DX: E34.9 Endocrine disorder, unspecified (principal); E55.9 Vitamin D deficiency, unspecified; E83.51 Hypocalcemia; I48.0 Paroxysmal atrial fibrillation; M81.0 Age-related osteoporosis without current pathological fracture
CPT/HCPCS: 36415; 80048; 82306; 83970

== ENCOUNTER 2022-01-24 23:09 | Emergency (ER) | payer MEDICARE, SELFPAY ==
[2022-01-24] VITALS (37 sets, daily range): BP systolic 129–156; BP diastolic 57–91; PULSE 76–113; RESP 13–30; TEMP 37.1; O2SAT 92–95
--- NOTE | 2022-01-24 23:15 | DI.CT_ITS ---
Exam(s) CT ABDOMEN PELVIS WO EXAM: CT ABDOMEN PELVIS WO CLINICAL HISTORY: vomiting, epigastric pain. TECHNIQUE: Imaging Protocol: Axial computed tomography images with coronal and sagittal reformatted images were created and reviewed CONTRAST MATERIAL: Intravenous: none Oral: None COMPARISON: No exams were available for comparison FINDINGS: VISUALIZED LUNG BASES: Mild infiltrate in the posterior basal segment of the right lower lobe. No so seated pleural effusion.. ABDOMEN: There is a large retrocardiac hiatal hernia. Significant part of the stomach is in the chest. There is no ascites. LIVER: There are no obvious focal hepatic lesions evident of this noninfused study. GALLBLADDER/BILIARY: Small layering gallstone noted. No gallbladder wall edema or pericholecystic fl uid. CBD is not dilated. PANCREAS: Difficult to assess because of respiratory motion artifact. SPLEEN: Spleen is not enlarged. No obvious intrasplenic lesions. ADRENALS: There are no significant adrenal masses. KIDNEYS:Parapelvic cysts in the left kidney. No calculi in left kidney. There are cysts in the righ t kidney. Largest of these measures 5.5 x 4.2 cm. There also multiple small calculi in the right ki dney infundibulum and renal pelvis but there none in the ureter below the level of the renal pelvis a nd the right ureter below the renal pelvis is not dilated.. And no calculi in the urinary bladder an d the bladder is not distended. ABDOMINAL AORTA: Abdominal aorta is not enlarged. LYMPH NODES: There is no retroperitoneal nor paraaortic adenopathy. ABDOMINAL WALL: No evidence of significant anterior abdominal wall nor inguinal hernia. GI: There is no evidence of bowel obstruction, free air, nor abscess. PELVIS: LYMPH NODES: There is no intrapelvic nor inguinal adenopathy. GI: No evidence of appendicitis.No evidence of sigmoid diverticulitis. URINARY BLADDER: No calculi nor obvious masses evident REPRODUCTIVE: Uterus is surgically absent. No abnormal adnexal masses nor free fluid in the pelvis. OSSEOUS: No significant osseous lesions. IMPRESSION: 1. Cholelithiasis. There are layering tiny hyperdense calculi in the gallbladder lumen. No gallblad george wall edema. CBD not dilated. 2. Mild right-sided hydronephrosis and pelviectasis on the right with numerous nonobstructing tiny ca lculi seen in the distended right upper renal collecting system/renal pelvis. There are no calculi i n the right ureter below the level of the UPJ and the distal ureter is not dilated. There are no maritza culi in the urinary bladder. 3. No bowel obstruction. No free air. No abscess. Large hiatal hernia noted. Approximately 50 percent the stomach is in the chest. RADIATION DOSE DELIVERED: 712.46mGy.cm Total DLP DATA REPOSITORY: All CT scans at this facility are submitted to the National Radiology Data Registry (NRDR) Dose Index Registry (DIR) with the [employer] (ACR). RADIATION OPTIMIZATION: All CT scans at this facility use at least one of these dose optimization te chniques: automated exposure control; mA and/or kV adjustment per patient size (includes targeted exa ms where dose is matched to clinical indication); or iterative reconstruction.
--- NOTE | 2022-01-24 23:15 | RT.EKG_ITS ---
APPROVED REPORT Exam: Resting ECG Reason for Exam: epigastric pain Patient Location: E HR:94 bpm ECG Measurements Heart Rate 94 AXIS IA [id number] P [id number] QRSd 83 QRS -16 QT 367 T -18 QTc 459 Conclusion Atrial fibrillation...V-rate 68-106, irreg A-activity Anteroseptal infarct, age indeterminate...Q >35mS, T neg, V1-V2 Physician: no stemi, minimal depressions in lateral leads. no st elevations.
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
[2022-01-24 23:56] LABS: Lactate 0.9 mmol/L (0.6-1.4)
[2022-01-25] VITALS (114 sets, daily range): BP systolic 123–151; BP diastolic 67–80; PULSE 70–112; RESP 13–30; TEMP 36.7; O2SAT 90–95
[2022-01-25 00:04] LABS: Abs Immature Grans 0.04 10^3/uL (0.0-0.06); Absolute Basophil Count 0.05 10^3/uL (0.0-0.2); Absolute Eosinophil Count 0.02 10^3/uL (0.0-0.7); Absolute Lymphocyte Count 0.64 10^3/uL (1.2-3.4); Absolute Monocyte Count 0.81 10^3/uL (0.1-0.8); Basophils % 0.4; Eosinophils % 0.2; HCT 35.2 % (36.0-46.0); HGB 11.8 g/dL (11.2-15.7); Immature Grans % 0.3; Lymphocytes % 5.3; MCH 28.7 pg (27.0-33.0); MCHC 33.5 % (32.0-36.0); MCV 86 fL (80-95); MPV 9.6 fL (8.0-11.0); Monocytes % 6.7; Neutrophils % 87.1; Platelet Count 345 10^3/uL (130-400); RBC 4.11 10^6/uL (3.93-5.22); RDW-SD 40.7 fL; WBC 12.15 10^3/uL (4.4-10.8)
[2022-01-25 00:05] LABS: Absolute Neutrophil Count 10.58 10^3/uL (1.2-6.7)
[2022-01-25 00:25] LABS: ALT 15 U/L (14-59); AST 22 U/L (15-37); Albumin 3.5 g/dL (3.4-5.0); Alkaline Phosphatase 120 U/L (46-116); Anion Gap 9.7 mmol/L (3-11); BUN 18 mg/dL (7-18); Bilirubin, Total 0.6 mg/dL (0.2-1.0); CO2 24.3 mmol/L (21.0-32.0); CREATININE 1.1 mg/dL (0.55-1.02); Calcium 9.1 mg/dL (8.5-10.1); Chloride 100 mmol/L (98-107); Estimated GFR 47.32 (mL/min/1.73m2); Glucose 126 mg/dL (74-106); Potassium 3.2 mmol/L (3.5-5.1); Sodium 134 mmol/L (136-145); Total Protein 7.3 g/dL (6.4-8.2); Troponin I < 50 ng/L (<or=60)
[2022-01-25 00:35] LABS: COVID-19 PCR Negative (Negative); Influenza A PCR Negative (Negative); Influenza B PCR Negative (Negative); RSV PCR Negative (Negative)
[2022-01-25 00:37] LABS: Lipase 86 U/L (73-393); TSH (W/Ref FT4) 3.14 uIU/mL (0.36-3.74)
[2022-01-25 00:38] LABS: Bilirubin Negative (Negative); Blood Moderate (Negative); Clarity Cloudy (Clear); Glucose Negative (Negative); Ketones 40 mg/dL (Negative); Leukocyte Esterase Moderate (Negative); Nitrite Positive (Negative); Urobilinogen 0.2 EU/dL (Up TO 0.2); pH 5.5 (5-8)
[2022-01-25 00:40] LABS: Source Nasopharynx
[2022-01-25 00:44] LABS: RBC >50 HPF (0-2); WBC >50 HPF (0-5)
[2022-01-25 00:45] LABS: Bacteria Few HPF (Negative); C & S Indicated? Yes; Crystals Negative HPF (Negative); Epithelial Cells Few HPF (Negative); Mucus Negative (Negative)
[2022-01-25] MEDS: Normal Saline 500 ML IV (00:57)
[2022-01-25] MEDS: CIPROFLOXACIN 400 MG/200 ML BAG 200 MG IVPB (01:06)
--- NOTE | 2022-01-25 01:17 | DI.VRAD_ITS ---
PROCEDURE INFORMATION: Exam: CT Abdomen And Pelvis Without Contrast Exam date and time: 01/25/2022 12:11 AM Age: 86 years old Clinical indication: Abdominal pain; Prior surgery; Surgery date: 6+ months; Surgery type: Partial colectomy; Patient HX: Epigastric pain, vomiting TECHNIQUE: Imaging protocol: Computed tomography of the abdomen and pelvis without contrast. Radiation optimization: All CT scans at this facility use at least one of these dose optimization techniques: automated exposure control; mA and/or kV adjustment per patient size (includes targeted exams where dose is matched to clinical indication); or iterative reconstruction. COMPARISON: CR XR PORTABLE CHEST AP 08/31/2021 7:56 AM FINDINGS: Lungs: Streaky atelectasis at the lung bases. Liver: Grossly unremarkable unenhanced liver. Gallbladder and bile ducts: Moderate gallbladder distention. Layering hyperdensity in the gallbladder lumen, probably sludge versus tiny stones. No biliary dilatation. Pancreas: Moderate-severe atrophy of the pancreas. Clinical correlation recommended to exclude pancreatic insufficiency. Spleen: Grossly unremarkable unenhanced spleen. Adrenal glands: Normal appearing adrenal glands. Kidneys and ureters: Multiple bilateral renal cysts with the largest measuring 5.3 cm on the right. Parapelvic renal cysts on the left. No left-sided urinary tract stones or hydronephrosis. Mild right-sided hydronephrosis and pelviectasis with mild prominence of the proximal right ureter. Numerous nonobstructing tiny stones layering in the distended right renal collecting system and renal pelvis. Ureters well visualized by high-resolution axial imaging from bite at 1 mm slice thickness. No radiopaque ureteral calculus demonstrated. Stomach and bowel: Large hiatal hernia partially excluded from view but measuring 5.0 cm x 7.0 cm maximum visualized axial dimension and with at least half of the stomach located above the diaphragm. No oral contrast. No small bowel dilatation to suggest obstruction. Extensive colonic diverticulosis, most concentrated through the distal descending and sigmoid colon. No evidence of diverticulitis or colitis. Appendix: Appendix not identified, obscured if present. Correlation with surgical history recommended. Intraperitoneal space: No gross ascites or free air. Small fat containing left inguinal region hernia. Vasculature: Normal caliber abdominal aorta. Retroperitoneal varices in the left para-aortic space, nonspecific. Lymph nodes: No pathologically enlarged mesenteric, retroperitoneal, or pelvic sidewall lymph nodes. Urinary bladder: Normal appearing urinary bladder. Reproductive: Prior hysterectomy. Ovaries not identified, obscured if present. Correlation with surgical history recommended. Bones/joints: No acute fracture seen among the bones of the abdomen or pelvis. Mild spinal degenerative change with discogenic degeneration, small Schmorl's nodes, and facet arthrosis at a few levels. Soft tissues: No significant ventral or inguinal hernia. IMPRESSION: 1. Large hiatal hernia partially excluded from view but measuring 5.0 cm x 7.0 cm maximum visualized axial dimension and with at least half of the stomach located above the diaphragm. 2. No acute bowel pathology demonstrated. 3. Moderate gallbladder distention. Layering hyperdensity in the gallbladder lumen, probably sludge versus tiny stones. No biliary dilatation. 4. Mild right-sided hydronephrosis and pelviectasis with mild prominence of the proximal right ureter. Numerous nonobstructing tiny stones layering in the distended right renal collecting system and renal pelvis. No obstructing ureteral stones demonstrated. Dictated and Authenticated by: Edinson Cabral MD. Ordering:ALONSO Nnues MD
[2022-01-25] MEDS: Ondansetron 4 MG/2 ML VIAL IVP (04:52)
--- NOTE | 2022-01-26 11:34 | NUR.NOTE ---
Nursing Note: [facility] accepted this in transfer earlier this week. They are unable to reach Medical Records. Called asking for the blood culture results and urine culture results. I faxced the final results of the blood cultures and the preliminary results of the urine culture. [phone] fax #
--- NOTE | 2022-01-29 11:56 | NUR.NOTE ---
Nursing Note: Dr Deb lord, positive anaerobic gram + cocci blood culture from anaerobic bottle. Patient transferred to [facility], report faxed to the MedSur unit there.
== END 2022-01-25 05:02 | disposition short-term general hospital (02) ==
PROVIDERS: Emergency Provider Student in an Organized Health Care Education/Training Program; PCP Nurse Practitioner Adult Health
DX: N39.0 Urinary tract infection, site not specified (principal); B96.20 Unspecified Escherichia coli [E. coli] as the cause of diseases classified elsewhere; R11.2 Nausea with vomiting, unspecified; R10.13 Epigastric pain; I48.0 Paroxysmal atrial fibrillation; E87.6 Hypokalemia
CPT/HCPCS: 80053; 83690; 87040; 87077; 87637; 93005; 96361; 96365; 96375; 99285; 74176; 81003; 81015; 83605; 84443; 84484; 85025; 87086; 87186; 93010; J0744; J2405

== ENCOUNTER → 2022-03-24 12:43 | Outpatient (BNVA) | payer MEDICARE, SELFPAY | PROVIDERS: PCP Nurse Practitioner Adult Health; Referring Provider Nurse Practitioner Adult Health; Visit Provider Nurse Practitioner Gerontology | DX: R39.89 Other symptoms and signs involving the genitourinary system (principal); N20.0 Calculus of kidney; R31.0 Gross hematuria; N13.30 Unspecified hydronephrosis; N39.0 Urinary tract infection, site not specified | CPT/HCPCS: 51798; 81003; 99215 ==

== ENCOUNTER 2022-03-24 18:24 | Outpatient (REF) | payer MEDICARE, SELFPAY | END 2022-03-24 18:25 | disposition home or self-care (01) | LOC: LBN 18:24 | PROVIDERS: PCP Nurse Practitioner Adult Health; Visit Provider Nurse Practitioner Gerontology | DX: N39.0 Urinary tract infection, site not specified (principal) | CPT/HCPCS: 87086 ==

== ENCOUNTER 2022-04-01 14:55 | Outpatient (REF) | payer MEDICARE, SELFPAY | END 2022-04-01 14:56 | disposition home or self-care (01) | LOC: LBN 14:55 | PROVIDERS: PCP Nurse Practitioner Adult Health; Visit Provider Nurse Practitioner Adult Health | DX: R31.0 Gross hematuria (principal) | CPT/HCPCS: 87086 ==

== ENCOUNTER → 2022-04-04 12:54 | Outpatient (BNVA) | payer MEDICARE, SELFPAY | PROVIDERS: PCP Nurse Practitioner Adult Health; Visit Provider Internal Medicine Cardiovascular Disease | DX: Z79.01 Long term (current) use of anticoagulants (principal); I48.0 Paroxysmal atrial fibrillation; I10 Essential (primary) hypertension | CPT/HCPCS: 99214 ==

== ENCOUNTER 2022-04-05 03:13 | Outpatient (CLI) | payer MEDICARE, SELFPAY ==
[2022-04-05 10:29] LABS: Anion Gap 8.2 mmol/L (3-11); BUN 19 mg/dL (7-18); CO2 28.8 mmol/L (21.0-32.0); CREATININE 1.2 mg/dL (0.55-1.02); Calcium 9.1 mg/dL (8.5-10.1); Chloride 104 mmol/L (98-107); Estimated GFR 44.64 (mL/min/1.73m2); Glucose 114 mg/dL (74-106); Potassium 3.5 mmol/L (3.5-5.1); Sodium 141 mmol/L (136-145)
[2022-04-07 05:42] LABS: Vitamin D 25 Total 45.6 ng/mL (30-100)
== END 2022-04-05 03:14 | disposition home or self-care (01) ==
LOC: LBO 03:13
PROVIDERS: PCP Nurse Practitioner Adult Health; Visit Provider Nurse Practitioner Adult Health
DX: E55.9 Vitamin D deficiency, unspecified (principal); M81.0 Age-related osteoporosis without current pathological fracture; E87.6 Hypokalemia; E87.1 Hypo-osmolality and hyponatremia; R53.1 Weakness
CPT/HCPCS: 36415; 80048; 82306

== ENCOUNTER → 2022-04-07 14:46 | Outpatient (BNVA) | payer MEDICARE, SELFPAY | PROVIDERS: PCP Nurse Practitioner Adult Health; Referring Provider Nurse Practitioner Adult Health; Visit Provider Nurse Practitioner Gerontology | DX: R31.0 Gross hematuria (principal); N20.0 Calculus of kidney | CPT/HCPCS: 81003; 99213 ==

== ENCOUNTER 2022-04-07 18:57 | Outpatient (REF) | payer MEDICARE, SELFPAY ==
[2022-04-07 17:24] LABS: Bilirubin Negative (Negative); Blood Large (Negative); Clarity Cloudy (Clear); Glucose Negative (Negative); Ketones Negative (Negative); Leukocyte Esterase Moderate (Negative); Nitrite Positive (Negative); Specific Gravity >= 1.030 (1.005-1.025); Urobilinogen 0.2 EU/dL (Up TO 0.2); pH 5.5 (5-8)
[2022-04-07 17:39] LABS: Bacteria Few HPF (Negative); Crystals Moderate Amorphous HPF (Negative); Epithelial Cells Negative HPF (Negative); Other Cells Few Transitional (Negative); RBC >50 HPF (0-2); WBC >50 HPF (0-5)
[2022-04-07 17:40] LABS: C & S Indicated? C&S Done As Ordered; Mucus Negative (Negative)
== END 2022-04-07 18:58 | disposition home or self-care (01) ==
LOC: LBN 18:57
PROVIDERS: PCP Nurse Practitioner Adult Health; Visit Provider Nurse Practitioner Gerontology
DX: R31.0 Gross hematuria (principal)
CPT/HCPCS: 87077; 81003; 81015; 87086; 87186

== ENCOUNTER → 2022-06-13 12:44 | Outpatient (CLI) | payer MEDICARE, SELFPAY ==
--- NOTE | 2022-06-13 10:34 | DI.RAD_ITS ---
Exam(s) XR CHEST 2V PA LATERAL EXAM: XR CHEST 2V PA LATERAL CLINICAL HISTORY: Cough, R05.9, r/o infiltrate TECHNIQUE: 2D digital imaging was performed. COMPARISON: No exams were available for comparison FINDINGS: Moderate size hiatal hernia. HEART: Normal size. Aorta: Not dilated. PULMONARY VASCULATURE: Normal. LUNGS: Mild fibrotic changes, otherwise clear. PLEURAL SPACE: No pleural effusion or pneumothorax. BONE:Unremarkable for age. IMPRESSION: No acute abnormality. DATA REPOSITORY: RADIATION DOSE DELIVERED:
== END ==
PROVIDERS: PCP Nurse Practitioner Adult Health; Visit Provider Nurse Practitioner Adult Health
DX: R05.8 Other specified cough (principal); J98.4 Other disorders of lung; K44.9 Diaphragmatic hernia without obstruction or gangrene
CPT/HCPCS: 99213; 71046

== ENCOUNTER → 2022-10-26 07:53 | Outpatient (BNVA) | payer MEDICARE, SELFPAY | PROVIDERS: PCP Nurse Practitioner Adult Health; Referring Provider Nurse Practitioner Adult Health; Visit Provider Nurse Practitioner Gerontology | DX: R82.90 Unspecified abnormal findings in urine (principal); Z87.440 Personal history of urinary (tract) infections; Z87.442 Personal history of urinary calculi; Z80.52 Family history of malignant neoplasm of bladder | CPT/HCPCS: 81003; 99213 ==

== ENCOUNTER 2022-10-26 12:15 | Outpatient (REF) | payer MEDICARE, SELFPAY ==
[2022-10-26 10:21] LABS: Bilirubin Negative (Negative); Blood Moderate (Negative); Clarity Cloudy (Clear); Glucose Negative (Negative); Ketones Negative (Negative); Leukocyte Esterase Small (Negative); Nitrite Positive (Negative); Specific Gravity >= 1.030 (1.005-1.025); Urobilinogen 0.2 mg/dL (Up to 0.2); pH 5.5 (5-8)
[2022-10-26 10:41] LABS: Bacteria Many HPF (Negative); C & S Indicated? C&S Done As Ordered; Casts 3-5 Fine Granular LPF (Negative); Crystals Negative HPF (Negative); Epithelial Cells Few HPF (Negative); Mucus Trace (Negative); RBC 20-50 HPF (0-2); WBC 20-50 HPF (0-5)
--- NOTE | 2022-10-26 13:00 | PAPNONF_PTH ---
PATIENT: Joselyn Connell LOC: [facility] U#:[id number] AGE/SX: 86/F ROOM: RE10/26/[address]: Moon Watt DNP : [id number] BED: DIS: 10/26/2022 SPEC #: [id number] RECD: 10/26/22 17:44 STATUS: PAVAN REQ #: [id number] VELMA: 10/26/22 13:[address]: Moon Watt DEPT: [facility] Cytology RECD BY: Rocio Schneider ENTERED: 10/26/22 17:44 SP TYPE: JESSIKA COLMENARES DR: Caroline Yoon APRN Tissues: 1 - BODY FLUID CYTO(SPUTUM/URINE)[facility] Procedures: BODY FLUID CYTO(URINE/SPUTUM) Comments: [id number] (TOTAL VOLUME = 120 ml) (REFRIGERATED) (60 ml URINE & 30 ml CYTOLTE ADDED IN 2 CONTAINERS)
== END 2022-10-26 12:16 | disposition home or self-care (01) ==
LOC: LBN 12:15
PROVIDERS: PCP Nurse Practitioner Adult Health; Visit Provider Nurse Practitioner Gerontology
DX: N39.0 Urinary tract infection, site not specified (principal); R31.0 Gross hematuria; R82.998 Other abnormal findings in urine
CPT/HCPCS: 81003; 81015; 87086; 88104

== ENCOUNTER 2022-11-19 11:51 | Emergency (ER) | payer MEDICARE, SELFPAY ==
[2022-11-19] VITALS (7 sets, daily range): BP systolic 128–153; BP diastolic 69–87; PULSE 85–139; RESP 16–26; TEMP 36.9; O2SAT 93–97
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
--- NOTE | 2022-11-19 12:06 | NUR.NOTE ---
Nursing Note: this nurse witnessed patient spitting out silver dollar sized blood clot in to cloth
[2022-11-19] MEDS: Tranexamic Acid 1,000 MG/10 ML VIAL 1000 MG (13:51)
--- NOTE | 2022-11-19 13:52 | NUR.NOTE ---
Nursing Note: Patient's nose nhas no bleeding prior to DC. Patient given extra nose clamp to use at home if needed. RCT called to P/U patient PT waiting in Waiting room for RCT
== END 2022-11-19 13:54 | disposition home or self-care (01) ==
PROVIDERS: Emergency Provider Emergency Medicine; PCP Nurse Practitioner Adult Health
DX: R04.0 Epistaxis (principal); Z79.899 Other long term (current) drug therapy; I48.91 Unspecified atrial fibrillation
CPT/HCPCS: 99282

== ENCOUNTER 2022-11-28 07:54 | Emergency (ER) | payer MEDICARE, SELFPAY ==
[2022-11-28 07:57] VITALS: BP 136/72; PULSE 110; RESP 18; TEMP 36.6; O2SAT 98
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
[2022-11-28] MEDS: Silver Nitrate Stick 1 EACH (08:39)
[2022-11-28 09:45] VITALS: BP 148/80; PULSE 78; RESP 18; TEMP 37; O2SAT 99
[2022-11-28] MEDS: Ondansetron O.D.T. 4 MG TABEF PO (10:23)
--- NOTE | 2022-11-28 10:30 | NUR.NOTE ---
pt wheeled to front entrance for RCT transport. pt ambulatory at time of discharge. no active bleeding from nose at this time.
== END 2022-11-28 10:27 | disposition home or self-care (01) ==
PROVIDERS: Emergency Provider Emergency Medicine Emergency Medical Services; PCP Nurse Practitioner Adult Health
DX: R04.0 Epistaxis (principal); Z79.01 Long term (current) use of anticoagulants; I48.91 Unspecified atrial fibrillation
CPT/HCPCS: 30901; 99283; 99284

== ENCOUNTER 2022-12-12 03:37 | Outpatient (CLI) | payer MEDICARE, SELFPAY ==
[2022-12-12 09:27] LABS: HCT 30.7 % (36.0-46.0); HGB 10.1 g/dL (11.2-15.7); MCH 28.9 pg (27.0-33.0); MCHC 32.9 % (32.0-36.0); MCV 88 fL (80-95); MPV 8.8 fL (8.0-11.0); Platelet Count 439 10^3/uL (130-400); RDW 13.6 % (11.7-14.6); WBC 8.03 10^3/uL (4.4-10.8)
[2022-12-12 10:47] LABS: Anion Gap 6.1 mmol/L (3-11); BUN 20 mg/dL (7-18); CO2 29.9 mmol/L (21.0-32.0); CREATININE 1.1 mg/dL (0.55-1.02); Calcium 8.7 mg/dL (8.5-10.1); Chloride 104 mmol/L (98-107); Estimated GFR 49.55 (mL/min/1.73m2); Ferritin 6 ng/mL (8-252); Glucose 113 mg/dL (74-106); Potassium 3.5 mmol/L (3.5-5.1); Sodium 140 mmol/L (136-145)
[2022-12-12 11:21] LABS: Vitamin D 25 Total 39.4 ng/mL (30-100)
== END 2022-12-12 03:38 | disposition home or self-care (01) ==
LOC: LBO 03:37
PROVIDERS: PCP Nurse Practitioner Adult Health; Visit Provider Nurse Practitioner Adult Health
DX: I10 Essential (primary) hypertension (principal); R60.0 Localized edema; I48.0 Paroxysmal atrial fibrillation; M81.0 Age-related osteoporosis without current pathological fracture
CPT/HCPCS: 36415; 80048; 82306; 85027; 82728

== ENCOUNTER → 2022-12-13 10:16 | Outpatient (BNVA) | payer MEDICARE, SELFPAY | PROVIDERS: PCP Nurse Practitioner Adult Health; Visit Provider Nurse Practitioner Gerontology | DX: N13.30 Unspecified hydronephrosis (principal); Z87.440 Personal history of urinary (tract) infections | CPT/HCPCS: 81003; 99213 ==

== ENCOUNTER 2022-12-20 01:31 | Outpatient (CLI) | payer MEDICARE, SELFPAY ==
--- NOTE | 2022-12-20 08:00 | DI.US_ITS ---
Exam(s) US RENAL EXAM: US RENAL CLINICAL HISTORY: monitoring hydroNEPHROSIS to right kidney,N13.30 TECHNIQUE: Ultrasound of both kidneys performed using standard protocol. COMPARISON: US US ECHOCARDIOGRAM from 09/29/2020 FINDINGS: RIGHT KIDNEY: Measures 10.4 cm in length. There cyst in the right kidney, the largest measuring 6 x 5 cm located mi d-lateral. Normal cortical thickness and corticomedullary differentiation .No solid masses Possible small 5 millimeter nonobstructive calculus evident. LEFT KIDNEY: Measures 9 cm in length. There appear to be parapelvic cysts. Normal cortical thickness and corticom edullary differentiaion. No solids masses. No intrarenal calculi nor hydonephrosis. URINARY BLADDER: Prevoid volume is 6 cc Postvoid volume is cc No evidence of bladder mass nor diverticuli. Ureterovesical jets: Not identified IMPRESSION: 1. Possible nonobstructive small 5 mm calculus in the right kidney. 2. Cysts in the kidneys, largest being in the right kidney measuring 6 cm. No solid renal masses. Bladder not able to be adequately studied due to only 6 cc therein DATA REPOSITORY:
== END 2022-12-20 01:51 ==
PROVIDERS: PCP Nurse Practitioner Adult Health; Visit Provider Nurse Practitioner Gerontology
DX: N28.1 Cyst of kidney, acquired
CPT/HCPCS: 76770

== ENCOUNTER → 2022-12-21 07:33 | Outpatient (BNVA) | payer MEDICARE, SELFPAY | PROVIDERS: PCP Nurse Practitioner Adult Health; Referring Provider Nurse Practitioner Adult Health; Visit Provider Nurse Practitioner Gerontology | DX: R31.0 Gross hematuria (principal); N20.0 Calculus of kidney; Z87.440 Personal history of urinary (tract) infections | CPT/HCPCS: 99442 ==

== ENCOUNTER 2022-12-29 02:10 | Outpatient (CLI) | payer MEDICARE, SELFPAY ==
[2022-12-29 10:23] LABS: HCT 32.6 % (36.0-46.0); HGB 10.6 g/dL (11.2-15.7); MCHC 32.5 % (32.0-36.0); MCV 86 fL (80-95); MPV 8.6 fL (8.0-11.0); Platelet Count 481 10^3/uL (130-400); RBC 3.78 10^6/uL (3.93-5.22); RDW 14.1 % (11.7-14.6); RDW-SD 44.5 fL; WBC 8.24 10^3/uL (4.4-10.8)
== END 2022-12-29 02:11 | disposition home or self-care (01) ==
LOC: LBO 02:10
PROVIDERS: PCP Nurse Practitioner Adult Health; Referring Provider Nurse Practitioner Adult Health; Visit Provider Nurse Practitioner Adult Health
DX: D64.9 Anemia, unspecified (principal)
CPT/HCPCS: 36415; 85027

== ENCOUNTER → 2023-04-06 09:36 | Outpatient (BNVA) | payer MEDICARE, SELFPAY | PROVIDERS: PCP Nurse Practitioner Adult Health; Visit Provider Internal Medicine Cardiovascular Disease | DX: Z79.01 Long term (current) use of anticoagulants (principal); I48.0 Paroxysmal atrial fibrillation; I10 Essential (primary) hypertension | CPT/HCPCS: 99213 ==

== ENCOUNTER → 2023-06-28 10:19 | Outpatient (BNVA) | payer MEDICARE, SELFPAY | PROVIDERS: PCP Nurse Practitioner Adult Health; Referring Provider Nurse Practitioner Adult Health; Visit Provider Nurse Practitioner Gerontology | DX: N13.30 Unspecified hydronephrosis (principal); R82.90 Unspecified abnormal findings in urine | CPT/HCPCS: 99214 ==

== ENCOUNTER 2023-12-11 04:51 | Outpatient (CLI) | payer MEDICARE, SELFPAY ==
[2023-12-11 10:08] LABS: Abs Immature Grans 0.02 10^3/uL (0.0-0.06); Absolute Basophil Count 0.09 10^3/uL (0.0-0.2); Absolute Eosinophil Count 0.04 10^3/uL (0.0-0.7); Absolute Lymphocyte Count 1.69 10^3/uL (1.2-3.4); Absolute Monocyte Count 0.43 10^3/uL (0.1-0.8); Basophils % 1.3 %; Eosinophils % 0.6 %; HCT 37.7 % (36.0-46.0); Immature Grans % 0.3 %; Lymphocytes % 24.2 %; MCH 26.2 pg (27.0-33.0); MCHC 31.8 % (32.0-36.0); MCV 82 fL (80-95); MPV 8.8 fL (8.0-11.0); Monocytes % 6.2 %; Neutrophils % 67.4 %; Platelet Count 437 10^3/uL (130-400); RBC 4.58 10^6/uL (3.93-5.22); RDW 15.4 % (11.7-14.6); RDW-SD 46.5 fL; WBC 6.97 10^3/uL (4.4-10.8)
[2023-12-11 10:45] LABS: Anion Gap 8.6 mmol/L (3-11); BUN 18 mg/dL (7-18); CO2 27.4 mmol/L (21.0-32.0); CREATININE 1.2 mg/dL (0.55-1.02); Chloride 105 mmol/L (98-107); Estimated GFR 44.36 (mL/min/1.73m2); Glucose 121 mg/dL (74-106); Magnesium 1.8 mg/dL (1.8-2.4); Potassium 3.7 mmol/L (3.5-5.1); Sodium 141 mmol/L (136-145); Vitamin D 25 Total 36.2 ng/mL (30-100)
== END 2023-12-11 04:52 | disposition home or self-care (01) ==
LOC: LBO 04:51
PROVIDERS: PCP Nurse Practitioner Adult Health; Referring Provider Nurse Practitioner Adult Health; Visit Provider Nurse Practitioner Adult Health
DX: I10 Essential (primary) hypertension (principal); I48.0 Paroxysmal atrial fibrillation; M81.0 Age-related osteoporosis without current pathological fracture; D50.0 Iron deficiency anemia secondary to blood loss (chronic)
CPT/HCPCS: 36415; 80048; 82306; 83735; 85025

== ENCOUNTER → 2023-12-28 09:51 | Outpatient (BNVA) | payer MEDICARE, SELFPAY | PROVIDERS: PCP Nurse Practitioner Adult Health; Referring Provider Nurse Practitioner Adult Health; Visit Provider Nurse Practitioner Gerontology | DX: N13.30 Unspecified hydronephrosis (principal); R82.90 Unspecified abnormal findings in urine | CPT/HCPCS: 51798; 99213 ==

== ENCOUNTER → 2024-04-04 09:25 | Outpatient (BNVA) | payer MEDICARE, SELFPAY | PROVIDERS: PCP Nurse Practitioner Adult Health; Visit Provider Internal Medicine Cardiovascular Disease | DX: I48.0 Paroxysmal atrial fibrillation (principal) | CPT/HCPCS: 99213 ==

== ENCOUNTER 2024-04-08 17:06 | Observation (INO) | payer MEDICARE, SELFPAY ==
[2024-04-08] VITALS (26 sets, daily range): BP systolic 132–177; BP diastolic 67–92; PULSE 90–134; RESP 12–34; TEMP 37.1; O2SAT 93–98
--- NOTE | 2024-04-08 17:00 | RT.EKG_ITS ---
APPROVED REPORT Exam: Resting ECG Reason for Exam: Chest Pain Patient Location: E HR:109 bpm ECG Measurements Heart Rate 109 AXIS NH [id number] P [id number] QRSd 78 QRS -27 QT 350 T -47 QTc 471 Conclusion Atrial fibrillation...V-rate 72-136, irreg A-activity I have reviewed and interpreted ECG and agree with software generated interpretation.
[2024-04-08 17:35] LABS: Abs Immature Grans 0.02 10^3/uL (0.0-0.06); Absolute Basophil Count 0.07 10^3/uL (0.0-0.2); Absolute Eosinophil Count 0.02 10^3/uL (0.0-0.7); Absolute Lymphocyte Count 0.92 10^3/uL (1.2-3.4); Absolute Neutrophil Count 4.02 10^3/uL (1.2-6.7); Basophils % 1.2 %; Eosinophils % 0.3 %; HCT 38.2 % (36.0-46.0); HGB 12.4 g/dL (11.2-15.7); Immature Grans % 0.3 %; Lactate 1.1 mmol/L (0.6-1.4); Lymphocytes % 15.7 %; MCH 26.5 pg (27.0-33.0); MCHC 32.5 % (32.0-36.0); MCV 82 fL (80-95); MPV 8.9 fL (8.0-11.0); Monocytes % 13.7 %; Neutrophils % 68.8 %; Platelet Count 358 10^3/uL (130-400); RBC 4.68 10^6/uL (3.93-5.22); RDW 15.9 % (11.7-14.6); RDW-SD 47.5 fL; WBC 5.85 10^3/uL (4.4-10.8)
[2024-04-08 17:52] LABS: PTT Activated 29.1 sec (23.6-32.8); Prothrombin Time 10.5 sec (9.1-11.1)
[2024-04-08 18:01] LABS: ALT 16 U/L (14-59); AST 20 U/L (15-37); Albumin 3.6 g/dL (3.4-5.0); Alkaline Phosphatase 136 U/L (46-116); Anion Gap 10.7 mmol/L (3-11); BUN 16 mg/dL (7-18); Bilirubin, Total 0.33 mg/dL (0.2-1.0); CO2 26.3 mmol/L (21.0-32.0); CREATININE 1.2 mg/dL (0.55-1.02); Chloride 98 mmol/L (98-107); Estimated GFR 44.08 (mL/min/1.73m2); Glucose 105 mg/dL (74-106); Lipase 31 U/L (16-77); Potassium 3.4 mmol/L (3.5-5.1); Sodium 135 mmol/L (136-145); TSH (W/Ref FT4) 6.24 uIU/mL (0.36-3.74); Total Protein 7.7 g/dL (6.4-8.2); Troponin I 8 ng/L (<or=51)
[2024-04-08 18:06] LABS: Calcium 9.1 mg/dL (8.5-10.1)
[2024-04-08 18:13] LABS: Procalcitonin < 0.1 ng/mL
--- NOTE | 2024-04-08 18:22 | DI.CT_ITS ---
Exam(s) CT ABDOMEN PELVIS WO EXAM: CT ABDOMEN PELVIS WO CLINICAL HISTORY: Hematuria, evaluate for stone. TECHNIQUE: Imaging Protocol: Axial computed tomography images with coronal and sagittal reformatted images were created and reviewed. COMPARISON: CT CT ABDOMEN PELVIS WO from 01/25/2022 FINDINGS: ABDOMEN: Lung Bases: There is again seen and large hiatal hernia. No acute infiltrates are seen in the lung b ases. There is unchanged scarring in the right lower lobe. Liver: Normal density. No measurable mass. Gallbladder and biliary tract: Multiple gallstones are present. There is no biliary ductal dilatatio n. Pancreas: There is pancreatic atrophy present. Spleen: Normal. Kidneys: Normal size, contour and axis.There again seen multiple calculi in the right renal collectin g system. No obstructing stones are seen in the ureter. There is ectasia of the renal pelvis. Stab le renal cysts are present bilaterally. Adrenal glands: No mass is seen. Lymph nodes: Within normal limits. Abdominal Aorta: Abdominal portion non-dilated. Atherosclerotic calcification is present. PELVIS: Bladder:Symmetric distention, no gross wall thickening. Bowel: There is diverticulosis of the colon without evidence of acute diverticulitis. No evidence of appendicitis. No bowel wall thickening or bowel obstruction. Peritoneal cavity: No ascites, collection or mesenteric inflammatory response. No free air. Reproductive organs: The uterus is absent. Bones: Age-appropriate degenerative changes are present. Soft Tissues: Within normal limits. IMPRESSION: 1. There is unchanged right-sided pelviectasis with numerous stones seen within the upper right renal collecting system and pelvis. It is unchanged. No ureteral stones are identified. No hydroureter is present. 2. Cholelithiasis. No biliary ductal dilatation. 3. No urinary bladder stones. 4. Extensive colonic diverticulosis without evidence of acute diverticulitis. RADIATION DOSE DELIVERED: 774.81mGy.cm Total DLP DATA REPOSITORY: All CT scans at this facility are submitted to the National Radiology Data Registry (NRDR) Dose Index Registry (DIR) with the [employer] (A[employer]). RADIATION OPTIMIZATION: All CT scans at this facility use at least one of these dose optimization te chniques: automated exposure control; mA and/or kV adjustment per patient size (includes targeted exa ms where dose is matched to clinical indication); or iterative reconstruction.
[2024-04-08 18:32] LABS: FREE T4 1.13 ng/dL (0.76-1.46)
[2024-04-08] MEDS: Normal Saline 500 ML IV (18:55)
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
[2024-04-08 19:22] LABS: Troponin I 10 ng/L (<or=51)
[2024-04-08 19:42] LABS: Bilirubin Small (Negative); Blood Large (Negative); Clarity Cloudy (Clear); Glucose Negative (Negative); Ketones 40 mg/dL (Negative); Leukocyte Esterase Negative (Negative); Nitrite Positive (Negative); Specific Gravity 1.025 (1.005-1.025); Urobilinogen 0.2 mg/dL (Up to 0.2); pH 5.5 (5-8)
[2024-04-08 19:42] LABS: Influenza A PCR Negative (Negative); Influenza B PCR Negative (Negative); RSV PCR Negative (Negative)
[2024-04-08 19:44] LABS: COVID-19 PCR Positive (Negative); Source Nasopharynx
[2024-04-08 20:07] LABS: C & S Indicated? C&S Done As Ordered; RBC >50 HPF (0-2)
[2024-04-08] MEDS: levoFLOXacin 750 MG/150 ML BAG 100 MG IVPB (20:50)
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
[2024-04-08 20:57] LABS: Troponin I 10 ng/L (<or=51)
[2024-04-09] MEDS: REMDESIVIR 200 MG in Normal Saline 250 ML 250 MG IVPB (00:30)
[2024-04-09] MEDS: dilTIAZem CD 120 MG CAPCR PO (00:56)
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
[2024-04-09 07:14] VITALS: BP 139/74; PULSE 105; RESP 18; TEMP 37.3; O2SAT 96
[2024-04-09 07:27] LABS: Abs Immature Grans 0.02 10^3/uL (0.0-0.06); Absolute Basophil Count 0.04 10^3/uL (0.0-0.2); Absolute Eosinophil Count 0.01 10^3/uL (0.0-0.7); Absolute Lymphocyte Count 0.77 10^3/uL (1.2-3.4); Absolute Monocyte Count 0.74 10^3/uL (0.1-0.8); Absolute Neutrophil Count 5.21 10^3/uL (1.2-6.7); Basophils % 0.6 %; Eosinophils % 0.1 %; HCT 39.4 % (36.0-46.0); HGB 12.9 g/dL (11.2-15.7); Immature Grans % 0.3 %; Lymphocytes % 11.3 %; MCH 26.7 pg (27.0-33.0); MCHC 32.7 % (32.0-36.0); MCV 82 fL (80-95); MPV 8.9 fL (8.0-11.0); Monocytes % 10.9 %; Neutrophils % 76.8 %; Platelet Count 359 10^3/uL (130-400); RBC 4.83 10^6/uL (3.93-5.22); RDW 15.8 % (11.7-14.6); WBC 6.79 10^3/uL (4.4-10.8)
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
[2024-04-09 07:44] LABS: Anion Gap 14.5 mmol/L (3-11); BUN 13 mg/dL (7-18); CO2 22.5 mmol/L (21.0-32.0); Calcium 8.8 mg/dL (8.5-10.1); Chloride 101 mmol/L (98-107); Estimated GFR 54.87 (mL/min/1.73m2); Glucose 105 mg/dL (74-106); Potassium 3.7 mmol/L (3.5-5.1); Sodium 138 mmol/L (136-145)
[2024-04-09] MEDS: Omeprazole 20 MG CAPCR PO (07:56)
[2024-04-09] MEDS: Normal Saline Flush 10 ML SYR IVP ×2 (08:01→20:16)
--- NOTE | 2024-04-09 08:30 | RT.EKG_ITS ---
APPROVED REPORT Exam: Resting ECG Reason for Exam: irregular heartbeat noted on exam Patient Location: I HR:101 bpm ECG Measurements Heart Rate 101 AXIS TN [id number] P [id number] QRSd 80 QRS -27 QT 363 T -4 QTc 471 Conclusion Atrial fibrillation...V-rate 71- 97, irreg A-activity Borderline T wave abnormalities...T/QRS ratio < 1/20 or flat T
[2024-04-09] MEDS: Lactobacillus Acidophilus CAP 1 CAP PO ×2 (09:20→20:14)
[2024-04-09] MEDS: Apixaban 2.5 MG TAB PO ×2 (09:20→20:14)
[2024-04-09] MEDS: Calcium 600mg/Vit D 200U TAB 1 TAB PO (09:20)
[2024-04-09 11:33] VITALS: BP 143/79; PULSE 96; RESP 18; TEMP 37.1; O2SAT 96
--- NOTE | 2024-04-09 11:51 | NUR.NOTE ---
Patient heart rate/sounds irregular on shift assessment. Provider notified and EKG order. Patient in atrial fibrillation. RN consulted provider, provider aware. RN administered eliquis as ordered for morning medication. No other doctor orders given. RN continuing to monitor patient closely. Nursing Note:
[2024-04-09] MEDS: Ondansetron 4 MG/2 ML VIAL IVP (12:58)
[2024-04-09 15:28] VITALS: BP 130/76; PULSE 84; RESP 16; TEMP 37.6; O2SAT 97
[2024-04-09] MEDS: Refresh PLUS Eye Drops 0.4ml OP (17:25)
--- NOTE | 2024-04-09 19:00 | PGE_ITS ---
Date of Service Date of service: 04/09/24 Time of Service: 12:00 Assessment and Plan Assessment and plan (1) Acute UTI: Status: Acute Assessment and plan: Higher risk with age and hematuria in presence of stones. Admission for IV antibiotics recommended by Dr. Carr. Given mulitple allergies and need to avoid drug interactions with Levaquin, will give ertapenem. No complex with the patient's allergy profile. (2) Kidney calculi: Status: Chronic Assessment and plan: Appreciate urology consultation and recommendations (3) COVID-19: Status: Acute Assessment and plan: Not hypoxic or in respiratory distress. Continues on remdesivir at this time (4) Paroxysmal A-fib: Status: Chronic Assessment and plan: Patient's anticoagulated at this time. (5) CKD stage 3a, GFR 45-59 ml/min: Assessment and plan: CKD near her baseline, monitor. (6) Hypokalemia: Status: Acute Assessment and plan: supplement and follow. (7) Subclinical hypothyroidism: Status: Acute Assessment and plan: No treatment indicated at this level. (8) DVT prophylaxis: Status: Resolved Assessment and plan: she is on apixaban Subjective Subjective Interval history since last seen: Clinical course reviewed including notes, orders, labs, vitals, meds, imaging, and cultures. Care is discussed with primary nurse. Patient continues on Levaquin and remdesivir for treatment of COVID. Levaquin was started due to potential for urinary tract infection The patient's hematuria is improved She continues on Eliquis We were called earlier today with irregular heart rate. EKG showed A-fib. Patient denies fevers or chills but she states overwhelming fatigue. She has not oxygen requiring at this time. No significant pulmonary complaints. A 14 point review of systems was performed and negative except as noted below and in the HPI. Exam Narrative Exam Narrative: Patient is alert and oriented x 3 and in no acute distress HEENT: Neck supple, MM pink and moist, conjunctiva non-injected, sclera non- icteric, Pupils equal and reactive to light symmetrically, no JVD, no A waves. No thyromegaly. No carotid bruit CHEST: Bilaterally symmetrical with inspiration and expiration. No use of accessory muscles of respiration. No nasal flaring. RESP: Clear to auscultation bilaterally, no rales, rhonchi or wheeze, no pleural friction rub, no post-tussive crackles or apical rales. COR: RRR without murmur, normal S1, S2, no rub or gallop ABDOMEN: Soft, non tender diffusely, normally active bowel sounds diffusely, No hepatosplenomegaly, No abdominal bruit, no masses, no tenderness on deep abdominal palpation. G/U: deferred Rectal: deferred MUSCULOSKELETAL: Bilaterally symmetrical, no muscle belly tenderness or mass DERMIS: Skin warm and dry, no ulcers or rashes, EXTREMITIES: No cyanosis, clubbing or edema, no gross deformities of the large or small joints of the upper or lower extremities. NEUROLOGICAL: Cranial nerves intact II-XII without notable deficit, No peripheral neurosensory or motor deficits noted. LYMPH: No anterior or posterior cervical, no supraclavicular, No axillary, no epitrochlear or femoral lymphadenopathy. Objective Last Vital Signs Temp 37.6 C H 04/09/24 15:28 Pulse 84 04/09/24 15:28 Resp 16 04/09/24 15:28 BP 130/76 04/09/24 15:28 Pulse Ox 97 04/09/24 15:28 Laboratory Results - last 24 hr 04/08/24 04/08/24 04/08/24 18:48 18:49 19:33 WBC RBC Hgb Hct MCV MCH MCHC RDW Plt Count MPV Immature Gran % Neutrophils % Lymphocytes % Monocytes % Eosinophils % Basophils % Nucleated RBC % Absolute Neutrophils Absolute Lymphocytes Absolute Monocytes Absolute Eosinophils Absolute Basophils Sodium Potassium Chloride Carbon Dioxide Anion Gap BUN Creatinine Est GFR (CKD-EPI 2020) Glucose Calcium Troponin I 10 Urine Color Brown Urine Clarity Cloudy Urine pH 5.5 Ur Specific [place] 1.025 Urine Protein 100 H Urine Ketones 40 H Urine Blood Large H Urine Nitrite Positive H Urine Bilirubin Small H Urine Urobilinogen 0.2 Ur Leukocyte Esterase Negative Urine RBC >50 H Urine WBC Not Applicable Ur Epithelial Cells Not Applicable Urine Crystals Not Applicable Urine Bacteria Not Applicable Urine Mucus Not Applicable Ur Culture Indicated? C&S Done As Ordered Urine Glucose Negative COVID-19 Source Nasopharynx SARS-CoV-2 (PCR) Positive A Influenza Type A (PCR) Negative Influenza Type B (PCR) Negative RSV (PCR) Negative 04/08/24 04/09/24 20:30 07:17 WBC 6.79 RBC 4.83 Hgb 12.9 Hct 39.4 MCV 82 MCH 26.7 L MCHC 32.7 RDW 15.8 H Plt Count 359 MPV 8.9 Immature Gran % 0.3 Neutrophils % 76.8 Lymphocytes % 11.3 Monocytes % 10.9 Eosinophils % 0.1 Basophils % 0.6 Nucleated RBC % 0.0 Absolute Neutrophils 5.21 Absolute Lymphocytes 0.77 L Absolute Monocytes 0.74 Absolute Eosinophils 0.01 Absolute Basophils 0.04 Sodium 138 Potassium 3.7 Chloride 101 Carbon Dioxide 22.5 Anion Gap 14.5 H BUN 13 Creatinine 1.0 Est GFR (CKD-EPI 2020) 54.87 Glucose 105 Calcium 8.8 Troponin I 10 Urine Color Urine Clarity Urine pH Ur Specific [place] Urine Protein Urine Ketones Urine Blood Urine Nitrite Urine Bilirubin Urine Urobilinogen Ur Leukocyte Esterase Urine RBC Urine WBC Ur Epithelial Cells Urine Crystals Urine Bacteria Urine Mucus Ur Culture Indicated? Urine Glucose COVID-19 Source SARS-CoV-2 (PCR) Influenza Type A (PCR) Influenza Type B (PCR) RSV (PCR) Time Spent with Patient Time Spent with Patient: 35-49 minutes Time was spent: preparing to see the patient(eg.review tests), obtaining and/or reviewing separately otained hiistory, ordering medications,tests, procedures, referring, communicating with other health client care manager, indepentently interpreting results, counseling the patient and care coordination
[2024-04-09 19:20] VITALS: BP 109/74; PULSE 63; RESP 18; TEMP 36.5; O2SAT 99
[2024-04-09] MEDS: ERTAPENEM 1 GM in Normal Saline 50 ML IVPB (20:15)
[2024-04-09] MEDS: REMDESIVIR 100 MG in Normal Saline 250 ML 250 MG IVPB (20:59)
[2024-04-09 23:55] VITALS: BP 133/74; PULSE 104; RESP 19; TEMP 36.6; O2SAT 96
[2024-04-10] MEDS: Omeprazole 20 MG CAPCR PO (07:02)
[2024-04-10 07:04] VITALS: BP 146/89; PULSE 67; RESP 18; TEMP 36.8; O2SAT 96
[2024-04-10] MEDS: Lactobacillus Acidophilus CAP 1 CAP PO ×2 (07:53→20:44)
[2024-04-10] MEDS: Apixaban 2.5 MG TAB PO ×2 (07:53→20:44)
[2024-04-10] MEDS: Normal Saline Flush 10 ML SYR IVP ×2 (07:55→21:04)
--- NOTE | 2024-04-10 11:36 | NUR.NOTE ---
Nursing Note: [facility]
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
--- NOTE | 2024-04-10 12:51 | PHA.REVIEW2 ---
Pharmacy Admission Review Admission Clinical Review Admission Pharmacy Review: Subclinical hypothyroidism (Acute) Hypokalemia (Acute) COVID-19 (Acute) Hematuria (Acute) Acute UTI (Acute) cephalexin monohydrate (From Keflex) Allergy (Severe, Verified 04/08/24 17:13) Cardiac Dysrythmia Cephalosporins Allergy (Severe, Verified 04/08/24 17:13) Skin Rash Penicillins Allergy (Severe, Verified 04/08/24 17:13) Anaphylaxsis meclizine Allergy (Intermediate, Verified 04/08/24 17:13) hyperactivity codeine Allergy (Unknown, Verified 04/08/24 17:13) unknown morphine Allergy (Unknown, Verified 04/08/24 17:13) unknown Sulfa (Sulfonamide Antibiotics) Allergy (Unknown, Verified 04/08/24 17:13) unknown sulfite Allergy (Unknown, Verified 04/08/24 17:13) unknown atenolol Adverse Reaction (Intermediate, Verified 04/08/24 17:13) severe dizziness dimenhydrinate (From Dramamine) Adverse Reaction (Mild, Verified 04/08/24 17:13) Other (See Comment) erythromycin base Adverse Reaction (Mild, Verified 04/08/24 17:13) Nausea metoprolol Adverse Reaction (Verified 04/08/24 17:13) sleepless, agitated Resuscitation Status Full Code Height 4 ft 11 in Weight 61.2 kg Comments Comments/Follow Ups: Reach out regarding antibiotic if patient is still here tomorrow evening (when next dose would be due). Pharmacy Admission Review Renal Dosing Renal Dosing: BUN 13 mg/dL (7-18) 04/09/24 07:17 Creatinine 1.0 mg/dL (0.55-1.02) 04/09/24 07:17 Medications needing adjustments: Reviewed (CrCl 38.25 mL/min) List of meds needing interventions: Current medications are okay Anticoagulation Anticoagulation: Hgb 12.9 g/dL (11.2-15.7) 04/09/24 07:17 Hct 39.4 % (36.0-46.0) 04/09/24 07:17 Plt Count 359 10^3/uL (130-400) 04/09/24 07:17 INR 1.0 (0.9-1.1) 04/08/24 17:25 Creatinine 1.0 mg/dL (0.55-1.02) 04/09/24 07:17 DVT Prophylaxis: Reviewed Medications: Apixaban (2.5mg BID) Relevant Labs Relevant Labs: Sodium 138 mmol/L (136-145) 04/09/24 07:17 Potassium 3.7 mmol/L (3.5-5.1) 04/09/24 07:17 Chloride 101 mmol/L (98-107) 04/09/24 07:17 Electrolytes, C-Reactive P, ESR: Reviewed (No new labs for today) Cardiac Review Cardiac Review: Troponin I 10 ng/L (<or=51) 04/08/24 20:30 BP, HR, EF%: Reviewed (BP 146/89 and HR WNL) List meds needing interventions: Has patient own orders for diltiazem 180mg in the morning and 120mg in the evening. QTc Review QTc: Reviewed (471 from 04/08/24) IV to PO Switch IV Medications: Reviewed (ondansetron and remdesivir) Home Meds Home Med List reviewed: Reviewed Relevent Home Meds Not ordered & why?: Cranberry extract Current Meds Current Medication Order Review: Reviewed Pharmacy Antibiotic Review Relevant Labs: WBC 6.79 10^3/uL (4.4-10.8) 04/09/24 07:17 Procalcitonin < 0.1 ng/mL 04/08/24 17:25 Temperature 36.8 C Microbiology 04/08/24 19:33 Urine Culture - Final Urine - Clean Catch Escherichia coli Gram Positive Toshia,Mixed Gram Negative Tj 04/08/24 17:52 Blood Culture - Preliminary Blood NO GROWTH 24 HOURS 04/08/24 17:25 Blood Culture - Preliminary Blood NO GROWTH 24 HOURS Pharmacy Antibiotic Activity: C/S review and Reviewed, no change Comments: Patient received a one time dose of ertapenem 1g last night at 2014. Spoke with provider today as no other order was put in. Provider said that the 1g dose will cover the patient for 48 hours and said by the time patient was due for next dose they would most likely be discharged. Reach out again if patient is still here tomorrow evening (when next dose would be due). Patient is also on day 2 of remdesivir for COVID. Comments Comments/Follow Ups: Reach out regarding antibiotic if patient is still here tomorrow evening (when next dose would be due).
[2024-04-10 14:39] VITALS: BP 128/79; PULSE 75; RESP 14; TEMP 35.9; O2SAT 96
--- NOTE | 2024-04-10 19:20 | PGE_ITS ---
Date of Service Date of service: 04/10/24 Time of Service: 12:25 Assessment and Plan Assessment and plan (1) Acute UTI: Status: Acute Assessment and plan: Higher risk with age and hematuria in presence of stones. Admission for IV antibiotics recommended by Dr. Carr. Given mulitple allergies and need to avoid drug interactions with Levaquin, will continue ertapenem. Once patient is off Zofran and being discharged, she could resume oral Levaquin renal dose adjusted (2) Kidney calculi: Status: Chronic Assessment and plan: Appreciate urology consultation and recommendations I discussed with the patient her need to have the stones removed. She is not so sure she wants to have this done as she understands that she may have a significant complication. This procedure would need to be done at a tertiary care center not locally. This is discussed with urology service today. (3) COVID-19: Status: Acute Assessment and plan: Not hypoxic or in respiratory distress. Continues on remdesivir at this time, last dose tomorrow (4) Paroxysmal A-fib: Status: Chronic Assessment and plan: Patient's anticoagulated at this time. (5) CKD stage 3a, GFR 45-59 ml/min: Assessment and plan: CKD near her baseline, monitor. (6) Hypokalemia: Status: Acute Assessment and plan: supplement and follow. (7) Subclinical hypothyroidism: Status: Acute Assessment and plan: No treatment indicated at this level. (8) DVT prophylaxis: Status: Resolved Assessment and plan: she is on apixaban Subjective Subjective Interval history since last seen: Clinical course reviewed including notes, orders, labs, vitals, meds, imaging, and cultures. Care is discussed with primary nurse. Patient was admitted on Levaquin and this was changed to ertapenem to avoid interaction with Zofran which the patient required for recurrent nausea The patient's hematuria is improved. Her urine has been relatively clear She continues on Eliquis Patient denies any chills fever nausea vomiting or diarrhea. She had overwhelming fatigue yesterday it is much better today. We discussed her need for a procedure to remove the stones. We discussed the difficulty with keeping her on medication with all her drug allergies. Outpatient options would include every other day ertapenem for daily Levaquin. She looks so much better today she is sitting up in a chair not rolled up in a position as she was yesterday. Remdesivir continues. Plans are for her to receive 3 days. She has not oxygen requiring at this time. No significant pulmonary complaints. A 14 point review of systems was performed and negative except as noted below and in the HPI. Exam Narrative Exam Narrative: Patient is alert and oriented x 3 and in no acute distress. She is sitting up in a bedside chair and appears to be much more active at this time. HEENT: Neck supple, MM pink and moist, conjunctiva non-injected CHEST: Bilaterally symmetrical with inspiration and expiration. No use of accessory muscles of respiration. No nasal flaring. RESP: Clear to auscultation bilaterally, no rales, rhonchi or wheeze, no pleural friction rub, no post-tussive crackles or apical rales. COR: RRR normal S1-S2 ABDOMEN: Soft, non tender diffusely, normally active bowel sounds diffusely, No hepatosplenomegaly, No abdominal bruit, no masses, no tenderness on deep abdominal palpation. G/U: deferred Rectal: deferred MUSCULOSKELETAL: Bilaterally symmetrical, no muscle belly tenderness or mass DERMIS: Skin warm and dry, no ulcers or rashes, EXTREMITIES: No cyanosis, clubbing or edema, no gross deformities of the large or small joints of the upper or lower extremities. NEUROLOGICAL: Cranial nerves intact II-XII without notable deficit, No peripheral neurosensory or motor deficits noted. Objective Last Vital Signs Temp 35.9 C L 04/10/24 14:39 Pulse 75 04/10/24 14:39 Resp 14 04/10/24 14:39 BP 128/79 04/10/24 14:39 Pulse Ox 96 04/10/24 14:39 Time Spent with Patient Time Spent with Patient: 35-49 minutes Time was spent: preparing to see the patient(eg.review tests), obtaining and/or reviewing separately otained hiistory, ordering medications,tests, procedures, referring, communicating with other health director of health care marketing, indepentently interpreting results, counseling the patient, care coordination and other (Telephone conversation with urology service regarding antibiotic options and plan of care after discharge)
[2024-04-10 20:42] VITALS: BP 143/89; RESP 14; TEMP 36.7; O2SAT 96
[2024-04-10] MEDS: REMDESIVIR 100 MG in Normal Saline 250 ML 250 MG IVPB (21:04)
[2024-04-11 07:29] VITALS: BP 136/73; PULSE 97; RESP 14; TEMP 37.1; O2SAT 97
[2024-04-11] MEDS: Omeprazole 20 MG CAPCR PO (08:12)
[2024-04-11] MEDS: Calcium 600mg/Vit D 200U TAB 1 TAB PO (08:12)
[2024-04-11] MEDS: Lactobacillus Acidophilus CAP 1 CAP PO (08:12)
[2024-04-11] MEDS: Apixaban 2.5 MG TAB PO (08:13)
[2024-04-11] MEDS: Normal Saline Flush 10 ML SYR IVP (10:33)
--- NOTE | 2024-04-11 12:56 | PDOC.HHF2F_ITS ---
Home Health Referral Home Health Orders Clinical synopsis of why skilled professionals are needed: Patient hospitalized due to hematuria as a complication of large staghorn calculus. Incidental finding of positive COVID. Patient has been essentially asymptomatic from the COVID. She received 3 days of intravenous remdesivir. Urine culture was positive for E. coli. Patient initially on Levaquin but this was changed to ertapenem to allow administration of Zofran due to some nausea. Nausea has resolved. No fevers or chills. Patient has not been on any oxygen during this hospitalization had no respiratory embarrassment. Laboratories have been stable. Patient without complaints. I called the patient's daughter who is nurse in [place] and left a status update without unique patient identifiers. This was done at the request of the patient. Patient no longer has any nausea complaints. Zofran has been discontinued. Patient will continue on Levaquin 250 mg p.o. daily for additional 7 days as a renal dose adjusted dosing for the E. coli UTI. She has many drug allergies, many of which are very serious and life-threatening, but she tolerates carbapenems and Levaquin. Patient will be discharged to her home apartment at the [facility] with home health penitentiary due to her complicated renal stone, medication adherence with physical therapy and Occupational Therapy services for her deconditioning and ADL skills. Her baseline is to walk at home with a walker. Medical diagnosis necessitation home health referral: deconditioning, gait abnormalities, complicated UTI with stone and hematuria, medication adherence due to mild confusion. Registered Nurse: Check all that apply Instruct on new or changed medication(s)/assess compliance: Ordered (penitentiary for complex medical issues and medication adherence.) Physical Therapist: Check all that apply Increase strength & endurance for safe mobility at home: Ordered Home safety evaluation and teaching/gait training including stair management (if applicable): Ordered Occupational Therapist: Evaluate and treat for patient unable to perform ADL/IADL/self-care: Ordered Upper extremity strengthening, range and motion: Ordered Home Bound Status Requires the aid of supportive device (check all that apply): Walker (has own walker) Assistance of another person (Describe assistance and medical necessity): Patient unable to transport herself, needs assistance of another person. Describe why leaving home would require a considerable and taxing effort: Requires frequent rest periods, Confusion and Safety Concerns: describe (impaired gait) Encounter Date and Reason: I certify that a [facility]TF encounter for this patient was performed on April 11, 2024 and that such encounter was related to the primary reason the patient requires home health services. The encounter was conducted in the following manner: * By me as the certifying physician, W[employer]ER CLEANER, PA or * By an inpatient physician, WALLPAPER CLEANER or PA during an inpatient stay who communicated findings to me, Certification And Authentication I certify that I composed the above information based on my clinical judgment relating to this patient's medical condition and, if applicable, clinical findings communicated to me by the NPP or inpatient physician who performed the FTF encounter. Name of Provider that will be monitoring home health services: Yony Castro
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
--- NOTE | 2024-04-11 13:41 | PDOC.CMDIS ---
Date of service: 04/11/24 Time of Service: 13:42 LACE Index Scoring Tool Questions: Length of Stay (in days): 3 Was the patient admitted via the E.D.?: Yes Comorbidities: Liver or Renal Disease E.D. Visits: 1 Answers: Total Score: 12 Risk of Readmission: High Risk Care Management Discharge Plan Reason for Hospitalization: Covid, Uti Discharge Plan: taco will be discharged home with new home health services for nursing, PT and OT. She will follow up with her community providers and plan of care and transport via [facility] coordinated by CM. Patient/Family Education Needs: Review discharge instructions, limitations, follow up plan, discuss Ask Me Three Services Needed at Discharge: Home Health Care Services SDOH Health Related Social Needs: Health related social needs inadequate housing, transpo insecurity, material hardship Health related social needs: inadequate housing(Z59.1), transportation insecurity(Z59.82) and material hardship(utilities)(Z59.87)
== END 2024-04-11 14:34 | disposition home health service (06) ==
LOC: ER 21:15 → MS 21:33
PROVIDERS: Admitting Provider Family Medicine; Emergency Provider Student in an Organized Health Care Education/Training Program; PCP Nurse Practitioner Adult Health; Visit Provider Family Medicine
DX: N39.0 Urinary tract infection, site not specified (principal); U07.1 COVID-19; N20.0 Calculus of kidney; I48.0 Paroxysmal atrial fibrillation; N18.31 Chronic kidney disease, stage 3a; E87.6 Hypokalemia; M81.0 Age-related osteoporosis without current pathological fracture; Z79.01 Long term (current) use of anticoagulants; D50.9 Iron deficiency anemia, unspecified; K44.9 Diaphragmatic hernia without obstruction or gangrene; F41.1 Generalized anxiety disorder; E78.5 Hyperlipidemia, unspecified; I12.9 Hypertensive chronic kidney disease with stage 1 through stage 4 chronic kidney disease, or unspecified chronic kidney disease; K57.30 Diverticulosis of large intestine without perforation or abscess without bleeding; R26.2 Difficulty in walking, not elsewhere classified; R31.9 Hematuria, unspecified; E03.9 Hypothyroidism, unspecified; B96.20 Unspecified Escherichia coli [E. coli] as the cause of diseases classified elsewhere; Z88.1 Allergy status to other antibiotic agents
CPT/HCPCS: 00123; 36415; 80048; 80053; 83690; 84145; 87040; 87077; 87637; 93005; 96361; 96365; 96366; 96367; 96375; 99222; 99285; 74176; 81003; 81015; 83605; 84439; 84443; 84484; 85025; 85610; 85730; 87086; 87186; 93010; 99232; 99239; J0248; J1335; J1956; J2405

== ENCOUNTER → 2024-04-09 08:27 | Outpatient (BNVA) | payer MEDICARE, SELFPAY | PROVIDERS: PCP Nurse Practitioner Adult Health; Referring Provider Nurse Practitioner Adult Health; Visit Provider Urology ==

== ENCOUNTER → 2024-06-27 09:56 | Outpatient (BNVA) | payer MEDICARE, SELFPAY | PROVIDERS: PCP Nurse Practitioner Adult Health; Visit Provider Nurse Practitioner Gerontology | DX: N20.0 Calculus of kidney (principal); R31.0 Gross hematuria; N13.30 Unspecified hydronephrosis; R82.90 Unspecified abnormal findings in urine | CPT/HCPCS: 99213 ==

== ENCOUNTER 2024-12-23 00:15 | Outpatient (CLI) | payer MEDICARE, SELFPAY ==
--- NOTE | 2024-12-23 08:15 | DI.US_ITS ---
Exam(s) US RENAL EXAM: US RENAL CLINICAL HISTORY: stone, hydro monitoring,hematuria,r31.0,n20.0. TECHNIQUE: Andino scale, color and spectral Doppler were used. COMPARISON: US US RENAL from 12/20/[address] ABDOMEN PELVIS WO from 04/08/2024 FINDINGS: Renal size in cm: Right: 9.6. Left: 9.6. Echogenicity: Normal. Hydronephrosis: There is mild dilatation of the right renal collecting system. Cyst or mass: There are bilateral renal cysts. The largest on the right measures 4.3 x 3.2 x 2.6 cm. Smaller parapelvic cysts are seen on the left. No follow-up is recommended. Nephrolithiasis: There is a calcification in the superior pole of the right kidney measuring 7 mm. Other findings: None. Bladder:There is a 1.6 cm echogenic focus in the urinary bladder which may represent a stone. The bladder wall is thickened mildly up to 4-5 mm. Ureteral jets: Right: Visualized and unremarkable. Left: Visualized and unremarkable. Prevoid vol:70 cc Postvoid vol:0 cc Renal color flow: Symmetric and within normal limits. IMPRESSION: 1. Right nephrolithiasis. 2. Mild right hydronephrosis. 3. Findings suspicious for urinary bladder stone. DATA REPOSITORY:
== END 2024-12-23 00:35 ==
LOC: DI 00:16
PROVIDERS: PCP Nurse Practitioner Adult Health; Visit Provider Nurse Practitioner Gerontology
DX: N20.0 Calculus of kidney (principal); R31.0 Gross hematuria
CPT/HCPCS: 76770

== ENCOUNTER → 2024-12-30 10:23 | Outpatient (BNVA) | payer MEDICARE, SELFPAY | PROVIDERS: PCP Nurse Practitioner Adult Health; Referring Provider Nurse Practitioner Adult Health; Visit Provider Nurse Practitioner Gerontology | DX: N20.0 Calculus of kidney (principal); R31.0 Gross hematuria; N13.30 Unspecified hydronephrosis; R82.90 Unspecified abnormal findings in urine | CPT/HCPCS: 99213 ==

== ENCOUNTER 2025-03-12 12:13 | Outpatient (REF) | payer MEDICARE, SELFPAY ==
[2025-03-12 15:39] LABS: HCT 33.7 % (36.0-46.0); HGB 10.7 g/dL (11.2-15.7)
[2025-03-12 16:15] LABS: Anion Gap 7.3 mmol/L (3-11); BUN 16 mg/dL (7-18); CO2 27.7 mmol/L (21.0-32.0); Calcium 8.9 mg/dL (8.5-10.1); Chloride 104 mmol/L (98-107); Estimated GFR 48.63 (mL/min/1.73m2); Glucose 105 mg/dL (74-106); Magnesium 1.9 mg/dL (1.8-2.4); Potassium 4.0 mmol/L (3.5-5.1); Sodium 139 mmol/L (136-145); TSH (W/Ref FT4) 3.17 uIU/mL (0.36-3.74)
== END 2025-03-12 12:14 | disposition home or self-care (01) ==
LOC: LBN 12:13
PROVIDERS: PCP Nurse Practitioner Adult Health; Visit Provider Nurse Practitioner Adult Health
DX: E03.8 Other specified hypothyroidism (principal); D50.0 Iron deficiency anemia secondary to blood loss (chronic); M81.0 Age-related osteoporosis without current pathological fracture; I10 Essential (primary) hypertension; R25.3 Fasciculation; J34.89 Other specified disorders of nose and nasal sinuses
CPT/HCPCS: 80048; 83735; 84443; 85014; 85018

== ENCOUNTER 2025-04-03 09:45 | Outpatient (CLI) | payer MEDICARE, SELFPAY ==
--- NOTE | 2025-04-03 09:45 | RT.EKG_ITS ---
APPROVED REPORT Exam: Resting ECG Reason for Exam: evaluate cardiac status Patient Location: O HR:84 bpm ECG Measurements Heart Rate 84 AXIS IA [id number] P [id number] QRSd 89 QRS -14 QT 338 T 3 QTc 400 Conclusion Atrial fibrillation...V-rate 62-121, irreg A-activity
== END 2025-04-03 09:46 | disposition home or self-care (01) ==
LOC: DI.CARD 09:49
PROVIDERS: PCP Nurse Practitioner Adult Health; Visit Provider Internal Medicine Cardiovascular Disease
DX: I10 Essential (primary) hypertension (principal); I48.0 Paroxysmal atrial fibrillation
CPT/HCPCS: 93010

== ENCOUNTER → 2025-04-03 10:55 | Outpatient (BNVA) | payer MEDICARE, SELFPAY | PROVIDERS: PCP Nurse Practitioner Adult Health; Referring Provider Nurse Practitioner Adult Health; Visit Provider Internal Medicine Cardiovascular Disease | DX: I48.0 Paroxysmal atrial fibrillation (principal); I10 Essential (primary) hypertension; Z79.01 Long term (current) use of anticoagulants | CPT/HCPCS: 99214; 93005 ==

== ENCOUNTER → 2025-06-26 00:19 | Outpatient (CLI) | payer MEDICARE, SELFPAY ==
--- NOTE | 2025-06-26 08:15 | DI.US_ITS ---
Exam(s) US RENAL EXAM: US RENAL CLINICAL HISTORY: monitoring calculi renal and bladder,gross hematuria,r31.0,n20.0. TECHNIQUE: Andino scale, color and spectral Doppler were used. COMPARISON: CT CT ABDOMEN PELVIS WO from 04/08/2024 US US RENAL from 12/23/2024 FINDINGS: Renal size in cm: Right: 8.7. Left: 7.0. Echogenicity: Normal. Hydronephrosis: No. Cyst or mass: There are stable bilateral renal cysts. The largest is in the midpole on the right and measures 4.1 x 3.6 x 3.3 cm. Nephrolithiasis: There are bilateral echogenic foci in the right kidney. The largest is seen in the region of the renal pelvis measures 1.5 cm. There is no hydronephrosis. Other findings: None. Bladder:The bladder cannot be visualized on this examination. Ureteral jets: Right: Not visualized on this examination. Left: Not visualized on this examination. Prevoid vol:Not visualized on this examination. Renal color flow: Symmetric and within normal limits. IMPRESSION: 1. Right nephrolithiasis without hydronephrosis. 2. Stable bilateral renal cysts. 3. The urinary bladder cannot be visualized on this examination. DATA REPOSITORY:
== END ==
LOC: DI 00:20
PROVIDERS: PCP Nurse Practitioner Adult Health; Visit Provider Nurse Practitioner Gerontology
DX: N20.0 Calculus of kidney (principal); R31.0 Gross hematuria; N28.1 Cyst of kidney, acquired
CPT/HCPCS: 76770

== ENCOUNTER → 2025-06-30 10:19 | Outpatient (BNVA) | payer MEDICARE, SELFPAY | PROVIDERS: PCP Nurse Practitioner Adult Health; Referring Provider Nurse Practitioner Adult Health; Visit Provider Nurse Practitioner Gerontology | DX: N20.0 Calculus of kidney (principal); R31.0 Gross hematuria; N13.30 Unspecified hydronephrosis; R82.90 Unspecified abnormal findings in urine | CPT/HCPCS: 99213 ==